=== PATIENT | male | born 1950 | race Caucasian/White ===

== ENCOUNTER → 2020-04-04 15:42 | Outpatient (BNVA) | payer MEDICARE, SELFPAY | PROVIDERS: Family Provider Nurse Practitioner; PCP Nurse Practitioner; Visit Provider Nurse Practitioner | DX: J43.9 Emphysema, unspecified (principal) | CPT/HCPCS: 80053 ==

== ENCOUNTER → 2020-06-25 10:04 | Outpatient (BNVA) | payer MEDICARE, SELFPAY | PROVIDERS: Family Provider Nurse Practitioner; PCP Nurse Practitioner; Visit Provider Nurse Practitioner | DX: E87.5 Hyperkalemia (principal) | CPT/HCPCS: 80053 ==

== ENCOUNTER → 2020-07-03 12:12 | Outpatient (BNVA) | payer MEDICARE, SELFPAY | PROVIDERS: Family Provider Nurse Practitioner; PCP Nurse Practitioner; Visit Provider Nurse Practitioner | DX: J43.9 Emphysema, unspecified (principal); Z20.828 Contact with and (suspected) exposure to other viral communicable diseases | CPT/HCPCS: 80053; 85025; 87635 ==

== ENCOUNTER → 2020-10-23 16:15 | Outpatient (BNVA) | payer MEDICARE, SELFPAY | PROVIDERS: Family Provider Nurse Practitioner; PCP Nurse Practitioner; Visit Provider Nurse Practitioner | DX: I10 Essential (primary) hypertension (principal) | CPT/HCPCS: 80048 ==

== ENCOUNTER 2021-04-06 14:19 | Inpatient (IN) | payer MEDICARE, SELFPAY ==
[2021-04-06] VITALS (10 sets, daily range): BP systolic 136–151; BP diastolic 73–86; PULSE 68–105; RESP 17–26; TEMP 36.8; O2SAT 62–99; BMI 23.0
--- NOTE | 2021-04-06 14:30 | ECG_ITS ---
[facility] Test Date: 2021-04-06 Pat Name: Brayden Adler Department: Room: Gender: Male [employer] Operator: : 1950 Requested By: Zena Mathur Order Number: [id number] Juanis MD: Joellen Edmonds M.D. Measurements Intervals [place] Rate: 73 P: 46 NM: 130 QRS: 60 QRSD: 102 T: 53 QT: 372 QTc: 412 Interpretive Statements SINUS RHYTHM WITH OCCASIONAL SUPRAVENTRICULAR PREMATURE COMPLEXES Compared to ECG 10/20/2017 23:01:41 Sinus tachycardia no longer present Electronically Signed On 04-07-2021 19:12:33 CDT by Joellen Edmonds M.D. [id number]
--- NOTE | 2021-04-06 14:33 | W.ED.GENADLT ---
HPI - General Adult General: Chief complaint: General Medical Stated complaint: TIA LIKE SYMPTOMS 13 HRS AGO Time Seen by Provider: 04/06/21 14:20 History of Present Illness: HPI narrative: This patient is a 71 year old male presenting with confusion and weakness, as well as a new tremor. He reports that the jerking started a week ago and he saw his doctor about it. he says that his doctor prescribed lorazepam for the jerking. He also takes dilaudid and morphine for lung inflammation. He has a history of COPD and says that he has never been admitted due to his breathing. He also woke up at about 1 am with weakness in both arms. He has not had this jerking problem before. He denies cough or fever. No COVID exposures. Associated symptoms: Reports dyspnea and malaise; Deny chest pain, headache(s), nausea, rash or vomiting Review of Systems Const: Reports: fatigue, malaise and daytime sleepiness; Denies: fever(s) or chills Eyes: Denies: change in vision ENMT: Denies: odynophagia Card: Denies: chest pain or swelling of feet/ankles Resp: Reports: dyspnea and wheezing; Denies: productive cough or non-productive cough GI: Denies: abdominal pain, nausea or vomiting : Denies: flank pain Musc: Denies: neck pain or back pain Skin/Breast: Denies: rash Neuro: Reports: involuntary movements; Denies: headache(s), numbness in extremities or weakness in extremities Kenroy/Lymph: Denies: easy bruising or easy bleeding PFS ED PFSH: Medical History (Updated 04/06/21 @ 18:51 by Matthew Beaulieu MD) BMI 24.0-24.9, adult CAD (coronary artery disease) COPD (chronic obstructive pulmonary disease) with emphysema Essential (primary) hypertension Surgical History (Updated 04/06/21 @ 18:43 by Matthew Beaulieu MD) History of carotid angioplasty History of vasectomy Family History Other Cancer FH: CVA (cerebrovascular accident) Hypertension Social History Smoking and tobacco status: former smoker Second hand smoke exposure: No Smoking risk assessment/counseling performed?: No Alcohol intake: never Desire information about alcohol rehabilitation?: No Counseling given: No Desire information about substance/drug rehabilitation?: No Counseling given: No Adopted: No Caregiver/support person: No Lives independently: Yes Household members: significant other Housing: House Marital status: / Number of children: 2 service: Yes branch: [employer] Current occupational status: retired History of recent travel: No Current gender identity: Male Physical Exam Const: COMMON NORMALS: no acute distress and alert EXAM LIMITATIONS: altered mental status GENERAL APPEARANCE: cooperative and other (confused, frequent jerking of his extremities) NUTRITIONAL APPEARANCE: thin ORIENTATION/CONSCIOUSNESS: Yes awake, Yes oriented to person and Yes confused HENMT: HEAD & SCALP: normal to inspection FACE & SINUS: normal facial exam Eye: GENERAL EYE: appearance normal, both eyes and all related structures Neck/C-Spine: COMMON NORMALS: supple, no meningeal signs and no JVD Chest: COMMONS NORMALS: normal inspection of the chest Resp: EFFORT & INSPECTION: Yes tachypneic, Yes labored and Yes uses accessory muscles AUSCULTATION: wheezes and diminished lung sounds Cardio: COMMON NORMALS: no JVD, regular rate, regular rhythm and No murmurs present (Cardio) RATE: regular rate RHYTHM: regular rhythm GI: COMMON NORMALS: Normal to inspection, nondistended, normoactive bowel sounds present, Soft to palpation and non-tender INSPECTION: Yes normal to inspection AUSCULTATION: Yes normoactive bowel sounds PALPATION: Yes Soft to palpation Back/Pelvis: COMMON NORMALS: thoracic and lumbar spine normal to inspection Extremity: COMMON NORMALS: normal to inspection Neuro: COMMON NORMALS: moves all extremities, no focal motor deficits and no sensory deficits noted SENSORIUM/ORIENTATION: Yes alert and Yes oriented to person MENINGEAL SIGNS: Yes no meningeal signs MOTOR EXAM: Tremors during motor activity present (myoclonic jerking) resting tremor Psych: COMMON NORMALS: mental status grossly normal, cooperative and normal affect Skin: COMMON NORMALS: no rashes or lesions noted and turgor normal GENERAL SKIN EXAM: no rashes or lesions noted and turgor normal Course ED course: Patient with confusion, myoclonus, very dimished air exchange on exam. ABG shows CO2 of 98 - consistent with the mental status changes. Treated for COPD, BiPap, improving clinically. Will admit to hospitalist. Repeat ABG pending. Reevaluation(s): Reevaluation #1: Slight improvement in ABG, but hospitalist prefers ICU admit. Repeat nebs ordered. Vital Signs: Vital signs: Vital Signs Temperature 98.3 F 04/06/21 14:24 Pulse Rate 100 04/06/21 18:52 Respiratory Rate 24 H 04/06/21 18:49 Blood Pressure 136/77 04/06/21 17:01 Pulse Oximetry 94 04/06/21 18:49 MDM - General Adult MDM Narrative: Medical decision making narrative: COPD exacerbation. Polypharmacy. Over sedation. Pneumonia Lab Data: Labs: Lab Results 04/06/21 04/06/21 04/06/21 Range/Units 14:31 15:07 15:07 WBC 6.7 (4.0-10.0) 10^3/ uL RBC 4.61 (4.1-5.3) 10^6/u L Hgb 12.7 (11.7-16.6) g/dL Hct 43.5 (42.0-52.0) % MCV 94.4 H (80-94) fl MCH 27.5 L (28.0-34.0) pg MCHC 29.2 L (30.0-36.0) g/dL RDW 12.3 (12.1-15.1) % Plt Count 161 (130-400) 10^3/c mm MPV 10.0 (7.4-10.4) fL Neut % (Auto) 74.0 % Lymph % (Auto) 16.6 % Stafford % (Auto) 8.4 % Eos % (Auto) 0.4 % Baso % (Auto) 0.3 % Neut # (Auto) 4.96 (1.8-7.7) 10^3/u L Lymph # (Auto) 1.1 (0.8-4.8) 10^3/u L Stafford # (Auto) 0.6 (0.2-0.9) 10^3/u L Eos # (Auto) 0.0 (0.0-0.8) 10^3/u L Baso # (Auto) 0.0 (0.0-0.1) 10^3/u L Nucleated RBC % (a uto) 0 % Nucleated RBCs # 0.0 /100WBC ESR (0-10) mm/hr Specimen Type Arterial Sample Site Radial, left ABG pH 7.29 L (7.35-7.45) ABG pCO2 98.2 H* (35-45) mmHg ABG pO2 99.0 (80.0-100.0) mmH g ABG HCO3 47.5 H (22-26) mmol/L ABG Base Excess 16.2 H (-2.0-2.0) mmol/ L Irgo Test Pos Hematocrit 40.7 L (42-52) % O2 Delivery Device Nc O2 Liters/Min 4.0 % FiO2 36.0 % Cake Tester ID Ed Sodium 140 (136-145) mmol/L Potassium 4.9 (3.5-5.1) mmol/L Chloride 96 L (98-107) mmol/L Carbon Dioxide 42 H* (22-29) mmol/L Anion Gap 6.9 (5-19) BUN 9 (8-23) mg/dL Creatinine 0.6 L (0.7-1.2) mg/dL GFR Calculation Not Reportable Glucose 95 (65-115) mg/dL Calculated Osmolal ity 288 (285-295) mOsm/k g Lactic Acid (0.5-2.2) mmol/L Calcium 8.8 (8.5-10.5) mg/dL Magnesium 1.7 (1.7-2.3) mg/dL Total Bilirubin 1.0 (0.15-1.2) mg/dL AST 11 (0-40) U/L ALT 9 (0-41) U/L Alkaline Phosphata se 80 (40-130) IU/L Ammonia (16-60) umol/L Creatine Kinase 45 (39-308) U/L Troponin T Baselin e (0-15) ng/L Troponin T 120 Min [place] (0-15) ng/L Delta Troponin T (0-10) ABS# C-Reactive Protein (0.0-4.9) mg/L NT-Pro-B Natriuret Pep (0-125) pg/mL Total Protein 6.4 L (6.6-8.7) g/dL Albumin 3.6 (3.5-5.2) g/dL Globulin 2.8 (1.3-4.6) g/dL Procalcitonin (0-0.5) ng/mL Urine Color (Yellow) Urine Appearance (CLEAR) Urine pH (5-7) Ur Specific Gravit y (1.005-1.030) Urine Protein (Negative) Urine Glucose (UA) (Normal) Urine Ketones (Negative) Urine Blood (Negative) Urine Nitrate (Negative) Urine Bilirubin (Negative) Urine Urobilinogen (Negative) mg/dL Ur Leukocyte Jerica ase (Negative) Urine RBC (0-2) /hpf Urine WBC (0-5) /hpf Ur Squamous Epith Cells (0-5) /hpf Amorphous Sediment /hpf Urine Bacteria (NONE) /hpf Urine Mucus /hpf Ethyl Alcohol < 10 (0-10) mg/dL 04/06/21 04/06/21 04/06/21 Range/Units 15:07 15:07 15:07 WBC (4.0-10.0) 10^3/ uL RBC (4.1-5.3) 10^6/u L Hgb (11.7-16.6) g/dL Hct (42.0-52.0) % MCV (80-94) fl MCH (28.0-34.0) pg MCHC (30.0-36.0) g/dL RDW (12.1-15.1) % Plt Count (130-400) 10^3/c mm MPV (7.4-10.4) fL Neut % (Auto) % Lymph % (Auto) % Stafford % (Auto) % Eos % (Auto) % Baso % (Auto) % Neut # (Auto) (1.8-7.7) 10^3/u L Lymph # (Auto) (0.8-4.8) 10^3/u L Stafford # (Auto) (0.2-0.9) 10^3/u L Eos # (Auto) (0.0-0.8) 10^3/u L Baso # (Auto) (0.0-0.1) 10^3/u L Nucleated RBC % (a uto) % Nucleated RBCs # /100WBC ESR (0-10) mm/hr Specimen Type Sample Site ABG pH (7.35-7.45) ABG pCO2 (35-45) mmHg ABG pO2 (80.0-100.0) mmH g ABG HCO3 (22-26) mmol/L ABG Base Excess (-2.0-2.0) mmol/ L Rigo Test Hematocrit (42-52) % O2 Delivery Device O2 Liters/Min % FiO2 % Cake Tester ID Sodium (136-145) mmol/L Potassium (3.5-5.1) mmol/L Chloride (98-107) mmol/L Carbon Dioxide (22-29) mmol/L Anion Gap (5-19) BUN (8-23) mg/dL Creatinine (0.7-1.2) mg/dL GFR Calculation Glucose (65-115) mg/dL Calculated Osmolal ity (285-295) mOsm/k g Lactic Acid 0.6 (0.5-2.2) mmol/L Calcium (8.5-10.5) mg/dL Magnesium (1.7-2.3) mg/dL Total Bilirubin (0.15-1.2) mg/dL AST (0-40) U/L ALT (0-41) U/L Alkaline Phosphata se (40-130) IU/L Ammonia 79 H (16-60) umol/L Creatine Kinase (39-308) U/L Troponin T Baselin e 17 H (0-15) ng/L Troponin T 120 Min [place] (0-15) ng/L Delta Troponin T (0-10) ABS# C-Reactive Protein (0.0-4.9) mg/L NT-Pro-B Natriuret Pep (0-125) pg/mL Total Protein (6.6-8.7) g/dL Albumin (3.5-5.2) g/dL Globulin (1.3-4.6) g/dL Procalcitonin (0-0.5) ng/mL Urine Color (Yellow) Urine Appearance (CLEAR) Urine pH (5-7) Ur Specific Gravit y (1.005-1.030) Urine Protein (Negative) Urine Glucose (UA) (Normal) Urine Ketones (Negative) Urine Blood (Negative) Urine Nitrate (Negative) Urine Bilirubin (Negative) Urine Urobilinogen (Negative) mg/dL Ur Leukocyte Jerica ase (Negative) Urine RBC (0-2) /hpf Urine WBC (0-5) /hpf Ur Squamous Epith Cells (0-5) /hpf Amorphous Sediment /hpf Urine Bacteria (NONE) /hpf Urine Mucus /hpf Ethyl Alcohol (0-10) mg/dL 04/06/21 04/06/21 04/06/21 Range/Units 15:07 15:07 17:09 WBC (4.0-10.0) 10^3/ uL RBC (4.1-5.3) 10^6/u L Hgb (11.7-16.6) g/dL Hct (42.0-52.0) % MCV (80-94) fl MCH (28.0-34.0) pg MCHC (30.0-36.0) g/dL RDW (12.1-15.1) % Plt Count (130-400) 10^3/c mm MPV (7.4-10.4) fL Neut % (Auto) % Lymph % (Auto) % Stafford % (Auto) % Eos % (Auto) % Baso % (Auto) % Neut # (Auto) (1.8-7.7) 10^3/u L Lymph # (Auto) (0.8-4.8) 10^3/u L Stafford # (Auto) (0.2-0.9) 10^3/u L Eos # (Auto) (0.0-0.8) 10^3/u L Baso # (Auto) (0.0-0.1) 10^3/u L Nucleated RBC % (a uto) % Nucleated RBCs # /100WBC ESR 11 H (0-10) mm/hr Specimen Type Sample Site ABG pH (7.35-7.45) ABG pCO2 (35-45) mmHg ABG pO2 (80.0-100.0) mmH g ABG HCO3 (22-26) mmol/L ABG Base Excess (-2.0-2.0) mmol/ L Rigo Test Hematocrit (42-52) % O2 Delivery Device O2 Liters/Min % FiO2 % Cake Tester ID Sodium (136-145) mmol/L Potassium (3.5-5.1) mmol/L Chloride (98-107) mmol/L Carbon Dioxide (22-29) mmol/L Anion Gap (5-19) BUN (8-23) mg/dL Creatinine (0.7-1.2) mg/dL GFR Calculation Glucose (65-115) mg/dL Calculated Osmolal ity (285-295) mOsm/k g Lactic Acid (0.5-2.2) mmol/L Calcium (8.5-10.5) mg/dL Magnesium (1.7-2.3) mg/dL Total Bilirubin (0.15-1.2) mg/dL AST (0-40) U/L ALT (0-41) U/L Alkaline Phosphata se (40-130) IU/L Ammonia (16-60) umol/L Creatine Kinase (39-308) U/L Troponin T Baselin e (0-15) ng/L Troponin T 120 Min [place] (0-15) ng/L Delta Troponin T (0-10) ABS# C-Reactive Protein 2.6 (0.0-4.9) mg/L NT-Pro-B Natriuret Pep 97 (0-125) pg/mL Total Protein (6.6-8.7) g/dL Albumin (3.5-5.2) g/dL Globulin (1.3-4.6) g/dL Procalcitonin 0.07 (0-0.5) ng/mL Urine Color Yellow (Yellow) Urine Appearance Cloudy (CLEAR) Urine pH 7 (5-7) Ur Specific Gravit y 1.010 (1.005-1.030) Urine Protein Neg (Negative) Urine Glucose (UA) Norm (Normal) Urine Ketones 1+ H (Negative) Urine Blood Neg (Negative) Urine Nitrate Negative (Negative) Urine Bilirubin Neg (Negative) Urine Urobilinogen Norm (Negative) mg/dL Ur Leukocyte Jerica ase Negative (Negative) Urine RBC None (0-2) /hpf Urine WBC Rare (0-5) /hpf Ur Squamous Epith Cells Rare (0-5) /hpf Amorphous Sediment 4+ /hpf Urine Bacteria Trace (NONE) /hpf Urine Mucus Trace /hpf Ethyl Alcohol (0-10) mg/dL 04/06/21 04/06/21 Range/Units 17:22 17:33 WBC (4.0-10.0) 10^3/ uL RBC (4.1-5.3) 10^6/u L Hgb (11.7-16.6) g/dL Hct (42.0-52.0) % MCV (80-94) fl MCH (28.0-34.0) pg MCHC (30.0-36.0) g/dL RDW (12.1-15.1) % Plt Count (130-400) 10^3/c mm MPV (7.4-10.4) fL Neut % (Auto) % Lymph % (Auto) % Stafford % (Auto) % Eos % (Auto) % Baso % (Auto) % Neut # (Auto) (1.8-7.7) 10^3/u L Lymph # (Auto) (0.8-4.8) 10^3/u L Stafford # (Auto) (0.2-0.9) 10^3/u L Eos # (Auto) (0.0-0.8) 10^3/u L Baso # (Auto) (0.0-0.1) 10^3/u L Nucleated RBC % (a uto) % Nucleated RBCs # /100WBC ESR (0-10) mm/hr Specimen Type Arterial Sample Site Brachial, right ABG pH 7.36 (7.35-7.45) ABG pCO2 81.0 H* (35-45) mmHg ABG pO2 66.3 L (80.0-100.0) mmH g ABG HCO3 46.1 H (22-26) mmol/L ABG Base Excess 16.5 H (-2.0-2.0) mmol/ L Rigo Test N/a Hematocrit 41.5 L (42-52) % O2 Delivery Device Bipap O2 Liters/Min % FiO2 40.0 % Cake Tester ID Ed Sodium (136-145) mmol/L Potassium (3.5-5.1) mmol/L Chloride (98-107) mmol/L Carbon Dioxide (22-29) mmol/L Anion Gap (5-19) BUN (8-23) mg/dL Creatinine (0.7-1.2) mg/dL GFR Calculation Glucose (65-115) mg/dL Calculated Osmolal ity (285-295) mOsm/k g Lactic Acid (0.5-2.2) mmol/L Calcium (8.5-10.5) mg/dL Magnesium (1.7-2.3) mg/dL Total Bilirubin (0.15-1.2) mg/dL AST (0-40) U/L ALT (0-41) U/L Alkaline Phosphata se (40-130) IU/L Ammonia (16-60) umol/L Creatine Kinase (39-308) U/L Troponin T Baselin e (0-15) ng/L Troponin T 120 Min [place] 16.41 H (0-15) ng/L Delta Troponin T -0.59 L (0-10) ABS# C-Reactive Protein (0.0-4.9) mg/L NT-Pro-B Natriuret Pep (0-125) pg/mL Total Protein (6.6-8.7) g/dL Albumin (3.5-5.2) g/dL Globulin (1.3-4.6) g/dL Procalcitonin (0-0.5) ng/mL Urine Color (Yellow) Urine Appearance (CLEAR) Urine pH (5-7) Ur Specific Gravit y (1.005-1.030) Urine Protein (Negative) Urine Glucose (UA) (Normal) Urine Ketones (Negative) Urine Blood (Negative) Urine Nitrate (Negative) Urine Bilirubin (Negative) Urine Urobilinogen (Negative) mg/dL Ur Leukocyte Jerica ase (Negative) Urine RBC (0-2) /hpf Urine WBC (0-5) /hpf Ur Squamous Epith Cells (0-5) /hpf Amorphous Sediment /hpf Urine Bacteria (NONE) /hpf Urine Mucus /hpf Ethyl Alcohol (0-10) mg/dL Critical Care Time Critical Care Time: Critical Care Time: Yes Total Critical Care Time: 35 Attestation: This case had a high probability of a clinically significant, sudden, or life threatening deterioration of this patient's condition which required my full and direct attention, intervention and personal management. This included interpretation of imaging, ABG, labs, clinical re-evaluation, consultation, review or prior records. Discharge Plan Discharge Patient Disposition: Admitted As Inpatient Admit Provider: Matthew Beaulieu Clinical Impression: COPD (chronic obstructive pulmonary disease) with emphysema, Acute and chronic respiratory failure with hypercapnia, Acute alteration in mental status Condition: Serious Coding Level of Care Code ED Manager Of Project Management for Chg Fwd Exam Comprehensive
[2021-04-06 14:41] LABS: ABG PH Result 7.29 (7.35-7.45); Arterial Blood Gas Hematocrit 40.7 % (42-52); Base Excess ABG 16.2 mmol/L (-2.0-2.0); Blood Gas Allen Test Pos; Blood Gas Sample Type Arterial; HCO3 ABG 47.5 mmol/L (22-26)
[2021-04-06 14:42] LABS: ABG PCO2 98.2 mmHg (35-45); Blood Gas Operator Identificat ED; Blood Gas Sample Site Radial, left; Oxygen Device NC
[2021-04-06 15:18] LABS: Basophils % 0.3 %; Eosinophils % 0.4 %; Hematocrit 43.5 % (42.0-52.0); Hemoglobin 12.7 g/dL (11.7-16.6); Lymphocytes # 1.1 10^3/uL (0.8-4.8); Lymphocytes % 16.6 %; Mean Corpuscular HGB Conc 29.2 g/dL (30.0-36.0); Mean Corpuscular Hemoglobin 27.5 pg (28.0-34.0); Mean Corpuscular Volume 94.4 fl (80-94); Monocytes # 0.6 10^3/uL (0.2-0.9); Monocytes % 8.4 %; Neutrophils # 4.96 10^3/uL (1.8-7.7); Nucleated Red Blood Cells % 0 %; Platelet Count 161 10^3/cmm (130-400); Red Blood Count 4.61 10^6/uL (4.1-5.3); Red Cell Distribution Width 12.3 % (12.1-15.1); White Blood Count 6.7 10^3/uL (4.0-10.0)
--- NOTE | 2021-04-06 15:20 | XRR_ITS ---
PROCEDURE INFORMATION: Exam: XR Chest Exam date and time: 04/06/2021 3:20 PM Age: 71 years old Clinical indication: Shortness of breath; Additional info: SOB, AMS TECHNIQUE: Imaging protocol: XR of the chest. Views: 1 view. COMPARISON: CR Chest 1 [place] [id number] 10/20/2017 5:34 PM FINDINGS: Lungs: Stable mild hyperinflation of the lungs. Multiple areas of scarring in both lungs are stable. Patchy alveolar airspace disease in the right mid lung, suspicious for atelectasis and/or mild pneumonia. Pleural spaces: Stable small chronic bilateral pleural effusions versus pleural thickening. No pneumothorax. Heart/Mediastinum: Stable mild enlargement of the cardiac silhouette. Enlargement of the central pulmonary arteries. Findings may suggest pulmonary hypertension. Vasculature: Stable vascular calcifications in the aorta. Bones/joints: Unremarkable for age. XR/XR chest 1V portable [id number] IMPRESSION: 1. Patchy alveolar airspace disease in the right mid lung, suspicious for atelectasis and/or mild pneumonia. Recommend followup chest x-ray to ensure resolution. 2. Stable small chronic bilateral pleural effusions versus pleural thickening. 3. Incidental/nonacute findings are listed in the report.
[2021-04-06] MEDS: magnesium sulfate premix 2 GM/50 ML PIGGYBACK IV (15:33)
[2021-04-06 15:44] LABS: Ammonia 79 umol/L (16-60)
[2021-04-06] MEDS: ipratropium-albuterol 3 mL Neb INHALATION ×2 (15:49→18:45)
[2021-04-06 15:50] LABS: Lactic Sepsis W/Reflex 0.6 mmol/L (0.5-2.2)
[2021-04-06 15:51] LABS: Alanine Aminotransferase 9 U/L (0-41); Albumin Level 3.6 g/dL (3.5-5.2); Alkaline Phosphatase 80 IU/L (40-130); Anion Gap 6.9 (5-19); Aspartate Amino Transferase 11 U/L (0-40); Blood Urea Nitrogen 9 mg/dL (8-23); Calcium 8.8 mg/dL (8.5-10.5); Chloride 96 mmol/L (98-107); Creatine Phosphokinase 45 U/L (39-308); Creatinine Clr Calc Pharmacy 91.3802; Globulin 2.8 g/dL (1.3-4.6); Glucose 95 mg/dL (65-115); Magnesium 1.7 mg/dL (1.7-2.3); Osmolality Calculated 288 mOsm/kg (285-295); Potassium 4.9 mmol/L (3.5-5.1); Sodium 140 mmol/L (136-145); Total Protein 6.4 g/dL (6.6-8.7)
[2021-04-06 16:07] LABS: Alcohol Level < 10 mg/dL (0-10); Carbon Dioxide 42 mmol/L (22-29)
[2021-04-06 16:09] LABS: Troponin(5th) Baseline 17 ng/L (0-15)
[2021-04-06 17:42] LABS: ABG PH Result 7.36 (7.35-7.45); Arterial Blood Gas Hematocrit 41.5 % (42-52); Base Excess ABG 16.5 mmol/L (-2.0-2.0); Blood Gas Sample Type Arterial; HCO3 ABG 46.1 mmol/L (22-26); PO2 ABG 66.3 mmHg (80.0-100.0)
[2021-04-06 17:44] LABS: Blood Gas Operator Identificat ED; Blood Gas Sample Site Brachial, right; Oxygen Device BIPAP
[2021-04-06 17:46] LABS: Add Urine Microscopic? YES; Bilirubin Urine Neg (Negative); Blood Urine Neg (Negative); Glucose Urine UA Norm (Normal); Ketones Urine 1+ (Negative); Leukocyte Esterase Urine Negative (Negative); Nitrate Urine Negative (Negative); Protein Urine Neg (Negative); Urine Appearance Cloudy (CLEAR); Urine Color Yellow (Yellow); Urobilinogen Urine Norm (Negative); pH Urine 7 (5-7)
[2021-04-06 17:54] LABS: NT Pro B Type Natriuretic Pept 97 pg/mL (0-125); Procalcitonin 0.07 ng/mL (0-0.5)
[2021-04-06 17:57] LABS: Add Urine Culture? No; Amorphous Sediment Urine 4+ /hpf; Bacteria Urine TRACE /hpf; Mucus Urine TRACE /hpf; Squamous Epithelial Cell Urine RARE /hpf (0-5); WBC Urine RARE /hpf (0-5)
[2021-04-06 18:03] LABS: Troponin 5 2HR 16.41 ng/L (0-15)
[2021-04-06 18:04] LABS: C Reactive Protein 2.6 mg/L (0.0-4.9)
[2021-04-06 18:08] LABS: Troponin 5 2HR Delta -0.59 ABS# (0-10)
[2021-04-06 18:21] LABS: Erythrocyte Sedimentation Rate 11 mm/hr (0-10)
--- NOTE | 2021-04-06 18:36 | CTR_ITS ---
PROCEDURE INFORMATION: Exam: CTA Chest With Contrast Exam date and time: 04/06/2021 6:36 PM Age: 71 years old Clinical indication: Shortness of breath; Prior surgery; Surgery type: Lung, back, carotid; Additional info: Resp failure TECHNIQUE: Imaging protocol: Computed tomographic angiography of the chest with contrast. 3D rendering (Not supervised by radiologist): MIP and/or 3D reconstructed images were created by the technologist. Radiation optimization: All CT scans at this facility use at least one of these dose optimization techniques: automated exposure control; mA and/or kV adjustment per patient size (includes targeted exams where dose is matched to clinical indication); or iterative reconstruction. Contrast material: OMNI 350; Contrast volume: 70 ml; Contrast route: INTRAVENOUS (IV); COMPARISON: CTA Chest-Pulmonary Emb [id number] 10/20/2017 8:45 PM RADIATION DOSE METRICS: Total DLP (mGy-cm): 591.31 FINDINGS: Pulmonary arteries: No filling defects in the pulmonary arteries to suggest pulmonary embolism. Aorta: Moderate atherosclerotic changes in the visualized arteries. No evidence for aortic aneurysm or aortic dissection. Great vessels off aortic arch: Arterial stent in the proximal left subclavian artery. Findings are stable. Lungs: Extensive paraseptal and [id number] centrilobular emphysematous changes in the lungs with bulla formation. Findings are stable. No focal consolidation. No pulmonary edema. No pulmonary parenchymal nodules or masses. Pleural spaces: No pleural effusion. No pneumothorax. Pleural calcifications in the right hemithorax. Findings are stable. Heart: Stable mild enlargement of the heart. Mild atherosclerotic calcification in the coronary arteries. Stable calcification of the aortic valve and mitral valve annulus. Mediastinal space: The esophagus is unremarkable. No mediastinal hematoma. No pneumomediastinum. Lymph nodes: No lymphadenopathy. Liver: Multiple calcified granulomas in the liver. Gallbladder and bile ducts: The gallbladder is unremarkable. No dilatation of the visualized bile ducts. Pancreas: Mild atrophy of the visualized pancreatic parenchyma. Spleen: The spleen is unremarkable. Adrenal glands: The right and left adrenal glands are unremarkable. Kidneys and ureters: Mildly complex cyst with wall calcification in the right kidney is partially visualized, this is stable compared with the previous study. The visualized left kidney is unremarkable. Bones/joints: Multilevel degenerative changes of varying severity in the visualized spine. Soft tissues: No acute abnormality in the extrathoracic soft tissues. CT/CT angio chest PE protcl [id number] IMPRESSION: 1. No evidence for pulmonary embolism. 2. Extensive paraseptal and [id number] centrilobular emphysematous changes in the lungs with bulla formation. Findings are stable. 3. Mildly complex cyst with wall calcification in the right kidney is partially visualized, this is stable compared with the previous study. 4. Incidental/nonacute findings are listed in the report. Radiation Dose CTDIVOL = (mGy): DLP = 591.31 (mGy-cm)
--- NOTE | 2021-04-06 18:40 | PM.HP ---
Providers/Chief Complaint Admitting Physician: Matthew Beaulieu MD Primary Care Provider: Gian Stacy, TUFTING MACHINE OPERATOR SINGLE NEEDLE-C Chief Complaint: TIA LIKE SYMPTOMS 13 HRS AGO History of Present Illness Brayden Adler is a 71 year old male with a past medical history of CAD status post stenting x1, history of bullous emphysema, COPD, history of right carotid endarterectomy, history of left carotid artery stenosis, hypertension, hyperlipidemia, who presents to [facility] due to complaints of chest pain, shortness of breath and confusion. Currently patient is alert to person, to place, not to time, he does mixed up a lot of his story, at times he tells me that he just had carotid surgery in [place], at other times he tells me that he lives in [facility], however after multiple redirections, I am able to get a straight answer from him. He tells me that he quit smoking more than 20 years ago, but has severe emphysema, he was doing fine yesterday, but just was feeling tired, nothing out of the ordinary. However overnight into this morning, he was developing severe substernal chest pain with shortness of breath, chest pain was in the anterior chest, nonradiating, no nausea, no vomiting. With the chest pain he was developing severe shortness of breath, no coughing, no hemoptysis, no recent surgery, no calf pain, swelling. Denies exposure to secondhand smoker, he is on hydromorphone, and morphine, he which he tells me has been taking forever. Denies taking more than the medication as prescribed, denies any illicit drug use. Review of Systems Const: Denies: fever(s), chills, fatigue or malaise Eyes: Denies: change in vision or blurry vision ENMT: Denies: nasal congestion Card: Reports: chest pain and dyspnea on exertion; Denies: irregular heart rhythm, edema, lightheadedness, syncope or pre-syncope Resp: Reports: dyspnea and non-productive cough; Denies: productive cough, wheezing or stridor GI: Denies: abdominal pain, nausea, vomiting, hematemesis, diarrhea, constipation, hematochezia or melena : Denies: flank pain, difficulty urinating, dysuria or urinary frequency Musc: Denies: neck pain or back pain Skin/Breast: Denies: rash Neuro: Denies: headache(s), dizziness or vertigo Psych: Denies: anxiety or depression Endo: Denies: polyuria or polydipsia Medications/Allergies Home Medications Medication Instructions Recorded Confirmed Last Taken Type albuterol sulfate 90 mcg/actuation 2 inh INHALATION QID PRN #18 gm 10/14/19 04/06/21 Unknown Rx aerosol inhaler budesonide 0.5 mg/2 mL suspension 0.5 mg INHALATION BID #120 ml 04/04/20 04/06/21 04/06/21 Rx for nebulization cilostazol 50 mg tablet 50 mg PO BID tab 04/04/20 04/06/21 04/06/21 History formoterol fumarate 20 mcg/2 mL 2 ml INHALATION Q12H #120 ml 04/04/20 04/06/21 04/06/21 Rx solution for nebulization clopidogrel 75 mg tablet 75 mg PO DAILY tab 10/23/20 04/06/21 04/06/21 History hydromorphone 2 mg tablet 2 mg PO TID tab 10/23/20 04/06/21 04/06/21 History losartan 50 mg tablet 50 mg PO DAILY 10/23/20 04/06/21 04/06/21 History morphine 15 mg tablet,extended 15 mg PO Q12H tab 10/23/20 04/06/21 04/06/21 History release tamsulosin 0.4 mg capsule 0.4 mg PO DAILY cap 10/23/20 04/06/21 04/05/21 History albuterol sulfate 2.5 mg INHALATION Q4H PRN #300 ml 11/12/20 04/06/21 Unknown Rx Lasix 20 - 40 mg PO DAILY PRN 04/06/21 04/06/21 Unknown History Allergies Allergy/AdvReac Type Severity Reaction Status Date / Time erythromycin base Allergy Unknown Unknown Unverified 10/14/19 14:20 PFSH Acute PFSH: Medical History (Updated 04/06/21 @ 18:51 by Matthew Beaulieu MD) BMI 24.0-24.9, adult CAD (coronary artery disease) COPD (chronic obstructive pulmonary disease) with emphysema Essential (primary) hypertension Surgical History (Updated 04/06/21 @ 18:43 by Matthew Beaulieu MD) History of carotid angioplasty History of vasectomy Family History Other Cancer FH: CVA (cerebrovascular accident) Hypertension Social History Smoking and tobacco status: former smoker Second hand smoke exposure: No Smoking risk assessment/counseling performed?: No Alcohol intake: never Desire information about alcohol rehabilitation?: No Counseling given: No Desire information about substance/drug rehabilitation?: No Counseling given: No Adopted: No Caregiver/support person: No Lives independently: Yes Household members: significant other Housing: House Marital status: / Number of children: 2 service: Yes branch: [employer] Current occupational status: retired History of recent travel: No Current gender identity: Male Vitals/I&O/Wt Last Vital Signs Temp 98.3 F 04/06/21 14:24 Pulse 84 04/06/21 17:01 Resp 19 H 04/06/21 17:01 BP 136/77 04/06/21 17:01 Pulse Ox 91 04/06/21 17:01 Weight last 48 hrs Weight 77.111 kg Physical Exam Const: COMMON NORMALS: no acute distress EXAM LIMITATIONS: altered mental status GENERAL APPEARANCE: cooperative ORIENTATION/CONSCIOUSNESS: Yes awake, Yes oriented to person, Yes oriented to place and Yes confused; not oriented to time HENMT: COMMON NORMALS: normocephalic HEAD & SCALP: normocephalic Eye: COMMON NORMALS: Equal, round and reactive pupils present GENERAL EYE: appearance normal, both eyes and all related structures PUPIL: Yes Equal, round and reactive pupils present Neck/C-Spine: COMMON NORMALS: full ROM, no lymphadenopathy and no JVD THYROID: Thyroid normal Lymph: LYMPHATIC: no lymphadenopathy noted Resp: COMMON NORMALS: normal respiratory effort, No retractions and No use of accessory muscles EFFORT & INSPECTION: Yes tachypneic, Yes respiratory distress (slight resp distress) and Yes retractions intercostal and supraclavicular AUSCULTATION: diminished lung sounds diffuse Cardio: COMMON NORMALS: regular rate, regular rhythm, S1 normal heart sound present, S2 normal heart sound present and No murmurs present (Cardio) GI: COMMON NORMALS: Normal to inspection, nondistended, normoactive bowel sounds present, Soft to palpation and non-tender PALPATION: Yes Soft to palpation and Yes No hepatosplenomegaly present Extremity: COMMON NORMALS: no pedal edema Neuro: COMMON NORMALS: patient oriented x3, CN's II-XII intact bilaterally, moves all extremities and no focal motor deficits Psych: COMMON NORMALS: mental status grossly normal, Normal thought process present and cooperative THOUGHT PROCESS: Normal thought process present Data : 04/06/21 15:07 04/06/21 15:07 Micro: Microbiology 04/06/21 17:22 Blood Culture - Preliminary Blood SPECIMEN COLLECTED 04/06/21 15:07 Blood Culture - Preliminary Blood SPECIMEN COLLECTED A&P Assessment and plan (1) Acute and chronic respiratory failure with hypercapnia: -Patient's PCO2 has responded well to BiPAP therapy, down to 80, but still has episodes of significant confusion, still having intercostal retractions, tachypnea, mild respiratory distress -Etiology is unclear, I was told it was secondary to his narcotic pain medications, but he tells me he has been taking these medications for over 20 years for his chronic pain Plan: -Admit to ICU -Continue BiPAP -Repeat ABG in a.m., monitor mentation closely, monitor respiratory status closely -Start broad-spectrum antibiotic therapy to Rocephin azithromycin -Continue DuoNeb treatments every 4 hours -Continue Solu-Medrol - follow blood cultures, sputum cultures -Serial troponins, serial EKGs, aspirin, statin, Plavix will order cardiac echo, return for chest pain -We will order CT angiogram of the chest -Hold off on diuretics as patient does not look fluid overloaded -Also has an elevated ammonia level, 2-3 beers a day, does report drinking no significant LFT abnormalities, ciwa -UA pending -Full code -Lovenox for DVT prophylaxis Alcohol abuse, CIWA Chest pain, with a history of CAD, as above Hypertension, continue losartan Chronic pain, hold morphine, hold Dilaudid, if PCO2 improves will reinstitute History of carotid endarterectomy on the right History of carotid artery stenosis on the left, currently being monitored by outpatient physician Status: Acute (2) Acute alteration in mental status: Status: Acute (3) Pneumonia: Status: Acute (4) Essential (primary) hypertension: Status: Chronic (5) COPD (chronic obstructive pulmonary disease) with emphysema: Status: Chronic Attestations Medical Necessity Statement*: Patient requires hospitalization for acute respiratory failure with hypercapnia secondary to COPD, bullous emphysema, possible underlying pneumonia, isolation, inpatient, greater than 2 midnights Coding Level of Care Code Acute Carpet Floor Layer Apprentice for g Fwd Diagnoses Acute and chronic respiratory failure with hypercapnia J96.22 Acute alteration in mental status R41.82 Pneumonia J18.9 Essential (primary) hypertension I10 COPD (chronic obstructive pulmonary disease) with emphysema J43.9
[2021-04-06] MEDS: cefTRIAXone 1,000 MG in sodium chloride 0.9% (plus) 50 ML 100 MG IV (19:23)
[2021-04-06] MEDS: enoxaparin 40 mg/0.4 mL Syringe SUBCUT (19:33)
[2021-04-06] MEDS: aspirin 81 mg EC Tablet PO (19:34)
[2021-04-06] MEDS: pantoprazole 40 mg SDV IVP (19:34)
[2021-04-06] MEDS: lactulose oral liq 20 gm/30 mL UDC PO (19:34)
[2021-04-06] MEDS: iohexol 350 mg/mL 100 mL Btl IV (20:29)
[2021-04-06] MEDS: azithromycin 500 MG in sodium chloride 0.9% 250 ML 250 MG IV (20:42)
[2021-04-06] MEDS: atorvastatin 40 mg Tablet PO (20:43)
[2021-04-06 22:39] LABS: Troponin 5 6HR 13.01 ng/L (0-15)
[2021-04-06 22:48] LABS: Troponin 5 6HR Delta -3.99 ng/L (0-12)
[2021-04-07] VITALS (157 sets, daily range): BP systolic 123–187; BP diastolic 72–96; PULSE 64–128; RESP 4–36; TEMP 36.6; O2SAT 76–100; BMI 24.1
--- NOTE | 2021-04-07 00:30 | PC.NURSE ---
Transfer Note Patient transferred to ICU room 2 from ER via bed, wearing 15L O2 on nonrebreather mask. Handoff received from CATHY Hickey. Patient oriented to environment and equipment. Covering service notified. Orders reviewed and will continue to monitor. Family and/or retail service representative notified. All patient belongings are at bedside and patient denies pain.
[2021-04-07] MEDS: ipratropium-albuterol 3 mL Neb INHALATION ×5 (03:24→21:05)
--- NOTE | 2021-04-07 05:05 | PC.NURSE ---
Shift Note Frequent safety and comfort rounds continue. Orders and/or nursing care completed as indicated. Patient monitored for response to intervention and treatment(s). Education provided includes hospital admission. Patient verbalizes understanding but needs reinforcement. Patient is currently on the BIPAP at 50% FiO2. Right hand IV is saline locked at this time. Patient is alert and oriented x3 but confused about situation. No wounds or skin issues noted at this time. Will continue to monitor.
[2021-04-07 05:14] LABS: ABG PH Result 7.37 (7.35-7.45); Arterial Blood Gas Hematocrit 40.2 % (42-52); Blood Gas Allen Test Pos; Blood Gas Sample Type Arterial; HCO3 ABG 45.2 mmol/L (22-26)
[2021-04-07 05:17] LABS: ABG PCO2 78.5 mmHg (35-45); Blood Gas Operator Identificat JB; Blood Gas Sample Site Radial, right; Oxygen Device BIPAP
[2021-04-07] MEDS: budesonide 0.5 mg/2 mL Neb INHALATION ×2 (07:44→21:06)
[2021-04-07 07:50] LABS: Basophils % 0.2 %; Hematocrit 41.2 % (42.0-52.0); Hemoglobin 12.4 g/dL (11.7-16.6); Lymphocytes # 0.8 10^3/uL (0.8-4.8); Lymphocytes % 18.7 %; Mean Corpuscular HGB Conc 30.1 g/dL (30.0-36.0); Mean Corpuscular Hemoglobin 27.9 pg (28.0-34.0); Mean Corpuscular Volume 92.6 fl (80-94); Mean Platelet Volume 10.4 fL (7.4-10.4); Monocytes # 0.5 10^3/uL (0.2-0.9); Monocytes % 10.6 %; Neutrophils # 3.03 10^3/uL (1.8-7.7); Neutrophils % 69.8 %; Nucleated Red Blood Cells % 0 %; Platelet Count 167 10^3/cmm (130-400); Red Blood Count 4.45 10^6/uL (4.1-5.3); Red Cell Distribution Width 12.3 % (12.1-15.1); White Blood Count 4.3 10^3/uL (4.0-10.0)
[2021-04-07 07:58] LABS: Ammonia 46 umol/L (16-60)
[2021-04-07 08:20] LABS: Alanine Aminotransferase 11 U/L (0-41); Albumin Level 3.7 g/dL (3.5-5.2); Alkaline Phosphatase 73 IU/L (40-130); Anion Gap 4.9 (5-19); Aspartate Amino Transferase 14 U/L (0-40); Blood Urea Nitrogen 17 mg/dL (8-23); Chloride 97 mmol/L (98-107); Globulin 2.8 g/dL (1.3-4.6); Glucose 113 mg/dL (65-115); Magnesium 2.2 mg/dL (1.7-2.3); Osmolality Calculated 296 mOsm/kg (285-295); Potassium 4.9 mmol/L (3.5-5.1); Sodium 142 mmol/L (136-145); Thyroid Stimulating Hormone 1.43 uIU/mL (0.27-4.20); Total Bilirubin 1.2 mg/dL (0.15-1.2); Total Protein 6.5 g/dL (6.6-8.7)
[2021-04-07 08:29] LABS: Carbon Dioxide 45 mmol/L (22-29); Creatinine Clr Calc Pharmacy 93.1203
[2021-04-07] MEDS: multivitamin therapeutic Tablet 1 TAB PO (08:33)
[2021-04-07] MEDS: losartan 50 mg Tablet PO (08:33)
[2021-04-07] MEDS: aspirin 81 mg EC Tablet PO (08:33)
[2021-04-07] MEDS: tamsulosin 0.4 mg Capsule PO (08:35)
[2021-04-07] MEDS: cilostazol 100 mg Tablet 50 MG PO ×2 (08:35→17:35)
[2021-04-07] MEDS: folic acid 1 mg Tablet PO (08:35)
[2021-04-07] MEDS: thiamine 100 mg Tablet PO (08:35)
[2021-04-07] MEDS: clopidogrel 75 mg Tablet PO (08:35)
--- NOTE | 2021-04-07 08:42 | PC.CHAP ---
Pastoral Care Encounter/Spiritual Assessment Type of Contact [] Declined steamer blocker visit [] Patient/Family/Request visit [] Outpatient visit [] Follow-up visit [] Physician referral [] Code/Alert [x] Routine visit [] Staff referral [] Actively dying [] Patient sleeping [] Family support [] [] Out of room [] Palliative care [] [] Receiving care in room [] Pre-surgical visit [] Trauma [] Long length of stay [x] ICU visit [] Other: Relational/Emotional Strength [] Patient feels connected with others/family/visitors/staff [] Distress [] Loneliness/isolation [] Abandonment Spirituality of Patient [] Person of Lauren [] Attends Synagogue of their Lauren [] Believes in Prayer [] Reads Bible or Scientologist materials [] There are Spiritual issues to be addressed Law Firm Administrator Interventions [x] Prayer [x] Active listening [x] Non-anxious presence [x] Spiritual/emotional support [] Crisis/trauma care [] Spiritual counseling [] Bereavement support [] Provided bereavement packet [] Provided Bible/devotional materials [] Provided toy/stuffed animal, coloring book to patient or family member [] Provided Communion [] Anointing/[place] [] Salvation [] Completed spiritual assessment [] Other: Impact on Illness or Injury [] Angry [] Fearful [] Anxious [] Often cries [] Exhaustion [] Unable to work [] Unable to attend baptism [] Unable to walk/stand [] Unable to read [] Unable to drive [] Unable to eat/drink [] Unable to sleep [] Unable to be with family [] Patient intubated [] Other: Summary Time spent with patient
[2021-04-07 09:21] LABS: Chol HDL Ratio 2.63 mg/dL (1.0-5.00); Cholesterol 176 mg/dL (0-200); HDL Cholesterol 67 mg/dL (60-100); LDL Cholesterol Calculated 94 mg/dL (50-129); NT Pro B Type Natriuretic Pept 193 pg/mL (0-125); Triglycerides 73 mg/dL (0-150)
[2021-04-07 09:23] LABS: Estmated Average Glucose 103; Hemoglobin A1C 5.2 % (4.0-6.0)
--- NOTE | 2021-04-07 09:45 | PC.NURSE ---
Patient is A&ox4 this morning. He is getting up and using the bedside commode and the toilet. shortness of breath was noted after ambulating but he stated that was normal for him.
[2021-04-07 09:49] LABS: Add Urine Microscopic? NO; Charge for UA Resulting for Rev
[2021-04-07 10:20] LABS: Urine Appearance Clear (CLEAR); Urine Color Yellow (Yellow)
[2021-04-07 10:21] LABS: Bilirubin Urine Neg (Negative); Blood Urine Neg (Negative); Glucose Urine UA Norm (Normal); Ketones Urine Negative (Negative); Leukocyte Esterase Urine Negative (Negative); Nitrate Urine Negative (Negative); Protein Urine Neg (Negative); Specific Gravity, Urine 1.015 (1.005-1.030); Urobilinogen Urine Norm (Negative); pH Urine 6.5 (5-7)
--- NOTE | 2021-04-07 14:08 | P.PN_ITS ---
Subjective Subjective: Interval history: Patient was seen and examined this morning, SOB has improved at rest, though he has SOB with exertion,which he says that happens at home as well.He has to take rest and then carry with activities. Medications: Reviewed: Yes Vitals/I&O/Wt Last Vital Signs Temp 97.9 F 04/07/21 04:00 Pulse 71 04/07/21 13:32 Resp 14 04/07/21 12:50 BP 162/77 04/07/21 11:15 Pulse Ox 97 04/07/21 12:50 04/06/21 04/07/21 04/07/21 22:59 06:59 14:59 Intake Total 100 / 100 490 / 590 720 / 720 Output Total 350 / 350 250 / 250 Balance 100 / 100 140 / 240 470 / 470 Weight last 48 hrs Weight 80.796 kg Weight 77.111 kg Physical Exam Const: COMMON NORMALS: patient oriented x3 HENMT: COMMON NORMALS: normocephalic and atraumatic HEAD & SCALP: normocephalic and atraumatic Chest: CHEST: Yes Symmetrical chest wall rise Resp: OTHER: Diminished Air Entry B/L Cardio: COMMON NORMALS: regular rate, regular rhythm, S1 normal heart sound present, S2 normal heart sound present, No gallops present (Cardio), No murmurs present (Cardio), No rub (Cardio) and Peripheral pulses 2+ throughout RATE: regular rate RHYTHM: regular rhythm HEART SOUNDS: S1 normal heart sound present and S2 normal heart sound present PERIPHERAL PULSES: Peripheral pulses 2+ throughout GI: COMMON NORMALS: Normal to inspection, nondistended, normoactive bowel sounds present, Soft to palpation, non-tender, No hepatosplenomegaly present and no masses AUSCULTATION: Yes normoactive bowel sounds PALPATION: Yes Soft to palpation and Yes No hepatosplenomegaly present RECTAL EXAM: Yes deferred Extremity: COMMON NORMALS: no clubbing, cyanosis or edema and no pedal edema Neuro: COMMON NORMALS: patient oriented x3 Data : 04/07/21 07:30 04/07/21 07:30 Micro: Microbiology 04/06/21 08:30 Bacterial Antigens - Final Urine,Voided 04/06/21 17:22 Blood Culture - Preliminary Blood SPECIMEN COLLECTED 04/06/21 15:07 Blood Culture - Preliminary Blood SPECIMEN COLLECTED A&P Assessment and plan (1) Acute and chronic respiratory failure with hypercapnia: -Patient's PCO2 has responded well to BiPAP therapy, down to 80, but still has episodes of significant confusion, still having intercostal retractions, tachypnea, mild respiratory distress -Etiology is unclear, I was told it was secondary to his narcotic pain medications, but he tells me he has been taking these medications for over 20 ye ars for his chronic pain Plan: -Admit to ICU -Continue BiPAP -Repeat ABG in a.m., monitor mentation closely, monitor respiratory status closely -Start broad-spectrum antibiotic therapy to Rocephin azithromycin -Continue DuoNeb treatments every 4 hours -Continue Solu-Medrol - follow blood cultures, sputum cultures -Serial troponins, serial EKGs, aspirin, statin, Plavix will order cardiac echo, return for chest pain -We will order CT angiogram of the chest -Hold off on diuretics as patient does not look fluid overloaded -Also has an elevated ammonia level, 2-3 beers a day, does report drinking no significant LFT abnormalities, ciwa -UA pending -Full code -Lovenox for DVT prophylaxis Alcohol abuse, CIWA Chest pain, with a history of CAD, as above Hypertension, continue losartan Chronic pain, hold morphine, hold Dilaudid, if PCO2 improves will reinstitute History of carotid endarterectomy on the right History of carotid artery stenosis on the left, currently being monitored by outpatient physician Status: Acute (2) Acute alteration in mental status: Status: Acute (3) Pneumonia: Status: Acute (4) Essential (primary) hypertension: Status: Chronic (5) COPD (chronic obstructive pulmonary disease) with emphysema: Status: Chronic Attestations Medical Necessity Statement*: Patient needs to be in hospital for the management of respiratory failure. Coding Level of Care Code Acute Grocery Store Manager for [facility] Anita Diagnoses Acute and chronic respiratory failure with hypercapnia J96.22 Acute alteration in mental status R41.82 Pneumonia J18.9 Essential (primary) hypertension I10 COPD (chronic obstructive pulmonary disease) with emphysema J43.9
[2021-04-07] MEDS: pantoprazole 40 mg SDV IVP (17:34)
[2021-04-07] MEDS: cefTRIAXone 1,000 MG in sodium chloride 0.9% (plus) 50 ML 100 MG IV (17:35)
[2021-04-07] MEDS: enoxaparin 40 mg/0.4 mL Syringe SUBCUT (17:35)
[2021-04-07] MEDS: lactulose oral liq 20 gm/30 mL UDC PO (17:36)
--- NOTE | 2021-04-07 19:03 | PC.NURSE ---
Patient ambulated in room and oxygen levels dropped in the low 80's. Patient became short of breath but stated that was normal for him. Dr. Weldon aware
--- NOTE | 2021-04-07 19:12 | USCV_ITS ---
Brayden Lizama Age: 71 Gender: M : 1950 Exam Date: 04/07/2021 06:23 Ordering Phys: Matthew Beaulieu MD Technologist: Exam Location: [facility] [place] Indication: TIA BP: 123 / 72 HR: 68 Rhythm: Sinus Technical Quality: Adequate MEASUREMENTS (Male / Female) Normal Values 2D ECHO LV Diastolic Diameter PLAX 3.2 cm 4.2 - 5.9 / 3.9 - 5.3 cm LV Systolic Diameter PLAX 2.3 cm IVS Diastolic Thickness 1.2 cm 0.6 - 1.0 / 0.6 - 0.9 cm IVS Systolic Thickness 1.1 cm LVPW Diastolic Thickness 0.9 cm 0.6 - 1.0 / 0.6 - 0.9 cm LVPW Systolic Thickness 1.2 cm LVOT Diameter 2.0 cm LV Ejection Fraction 2D Teich 57.5 % LV Ejection Fraction MOD 2C 70.0 % LV Ejection Fraction 2C AL 70.1 % LA Diameter 2.8 cm LA Width 3.8 cm LA Height 4.2 cm RA Width 3.7 cm RA Height 4.2 cm Aorta at Sinotubular Diameter 2.7 cm DOPPLER AV Peak Velocity 224.7 cm/s LVOT Peak Velocity 120.0 cm/s AV Area Cont Eq vti 1.8 cm squared AV Area Cont Eq pk 1.7 cm squared MV Area PHT 5.0 cm squared Mitral E to A Ratio 0.8 MV E' Velocity 66.5 cm/s Mitral E to MV E' Ratio 13.6 Mitral E to LV E' Lateral Ratio 14.0 Mitral E to LV E' Septal Ratio 13.3 TR Peak Velocity 181.3 cm/s TR Peak Gradient 13.2 mmHg TV Peak E Velocity 89.0 cm/s Right Atrial Pressure 3.0 mmHg Pulmonary Artery Systolic Pressu 16.2 mmHg PV Peak Velocity 110.0 cm/s FINDINGS Left Ventricle Normal left ventricular size. LV systolic function is normal with EF of 50-55%.No regional wall motion abnormalities. Grade 1 diastolic dysfunction Right Ventricle The right ventricle is normal in size and function. Right Atrium The right atrium is normal in size. Left Atrium The left atrium is normal in size. Mitral Valve Structurally normal mitral valve without significant stenosis or prolapse. There is no mitral regurgitation. Aortic Valve Thickened aortic valve without signficant stenosis. There is trace aortic regurgitation. Tricuspid Valve Structurally normal tricuspid valve without significant stenosis or regurgitation. Insufficient TR jet to calculate RVSP Pulmonic Valve Structurally normal pulmonic valve without significant stenosis. There is no pulmonic regurgitation. Pericardium Normal pericardium without effusion. Aorta Normal ascending aorta dimension. CONCLUSIONS LV systolic function is normal with EF of 50-55% Grade 1 diastolic dysfunction Trace aortic regurgitation Compared to prior echocardiogram from 10/21/2017, patient now has grade 1 diastolic dysfunction Helio Pimentel MD (Electronically Signed) Final Date: 07 April 2021 12:40 S
--- NOTE | 2021-04-07 19:24 | USCV_ITS ---
Bradyen Lizama Age: 71 Gender: M : 1950 Exam Date: 04/07/2021 06:37 Ordering Phys: Matthew Beaulieu MD Technologist: Exam [place] [facility] [place] Indication: CCA STENOSIS Risk Factors: Smoker Previous Vascular Surgery: L CEA Right Brachial BP: / Left Brachial BP: / Right Left Velocity (cm/s) Spectral Plaque Velocity (cm/s) Spectral Plaque Syst/Diast Broadening Syst/Diast Broadening 35.20/ 4.80 Prox CCA 56.10 / 17.70 49.50/ 8.50 Mid CCA 61.10 / 20.60 43.50/ 8.50 Distal CCA 59.60 / 13.50 / Adam Prox ICA 51.80 / 13.50 / Adam Mid ICA 119.60/ 37.40 / Adam Distal ICA 130.00/ 53.80 51.40 ECA 61.10 Hetro ICA/CCA 2.13 Antegrade Vertebral Antegrade 71.00/ 20.60 cm/s 59.00/ 19.70 cm/s Tri Subclavian Tri FINDINGS Comparison: none available. Complete chronic appearing occlusion right ICA. Moderate atherosclerotic plaque right CCA. Mild stenosis and plaque left carotid. Bilateral antegrade vertebral arteries. CONCLUSIONS Occluded right ICA. Left ICA stenosis < 50%. Dr. Ella Brewster DO (Electronically Signed) Final Date: 07 April 2021 09:47 S
[2021-04-07] MEDS: azithromycin 500 MG in sodium chloride 0.9% 250 ML 250 MG IV (19:27)
[2021-04-07] MEDS: atorvastatin 40 mg Tablet PO (20:09)
[2021-04-08] VITALS (34 sets, daily range): BP systolic 148–199; BP diastolic 74–115; PULSE 65–105; RESP 14–29; TEMP 36.3–36.8; O2SAT 84–98
[2021-04-08] MEDS: ipratropium-albuterol 3 mL Neb INHALATION ×7 (00:17→23:56)
--- NOTE | 2021-04-08 00:19 | PC.NURSE ---
Pt's BP began to run hypertensive, this nurse called the contact lens polisher physician and got an order for labetalol 10mg IVP Q 4hrs PRN for systolic greater than 180 and diastolic greater than 100, hold if HR is less than 60.
[2021-04-08] MEDS: labetalol 5 mg/mL SDV 20mL 10 MG IVP ×3 (00:27→08:28)
--- NOTE | 2021-04-08 01:28 | PC.NURSE ---
Patient is refusing to have his EKG leads put back on, this nurse educated him on the importance of being able to monitor his heart while in the ICU, pt still refused.
[2021-04-08 04:51] LABS: ABG PH Result 7.41 (7.35-7.45); Arterial Blood Gas Hematocrit 38.4 % (42-52); Base Excess ABG 14.8 mmol/L (-2.0-2.0); Blood Gas Allen Test Pos; Blood Gas Sample Type Arterial; HCO3 ABG 42.6 mmol/L (22-26)
[2021-04-08 04:57] LABS: Blood Gas Sample Site Radial, left; Oxygen Device BIPAP
[2021-04-08 06:03] LABS: Hematocrit 40.5 % (42.0-52.0); Hemoglobin 12.5 g/dL (11.7-16.6); Lymphocytes # 0.5 10^3/uL (0.8-4.8); Mean Corpuscular HGB Conc 30.9 g/dL (30.0-36.0); Mean Corpuscular Hemoglobin 28.3 pg (28.0-34.0); Mean Corpuscular Volume 91.6 fl (80-94); Mean Platelet Volume 10.4 fL (7.4-10.4); Monocytes # 0.2 10^3/uL (0.2-0.9); Monocytes % 2.7 %; Neutrophils # 6.41 10^3/uL (1.8-7.7); Neutrophils % 89.9 %; Nucleated Red Blood Cells % 0 %; Platelet Count 164 10^3/cmm (130-400); Red Blood Count 4.42 10^6/uL (4.1-5.3); Red Cell Distribution Width 12.4 % (12.1-15.1); White Blood Count 7.1 10^3/uL (4.0-10.0)
[2021-04-08 06:18] LABS: Ammonia 54 umol/L (16-60)
[2021-04-08 06:21] LABS: Alanine Aminotransferase 12 U/L (0-41); Albumin Level 3.7 g/dL (3.5-5.2); Alkaline Phosphatase 67 IU/L (40-130); Anion Gap 6.9 (5-19); Aspartate Amino Transferase 27 U/L (0-40); Blood Urea Nitrogen 22 mg/dL (8-23); Calcium 9.1 mg/dL (8.5-10.5); Carbon Dioxide 40 mmol/L (22-29); Chloride 98 mmol/L (98-107); Globulin 2.7 g/dL (1.3-4.6); Glucose 134 mg/dL (65-115); Osmolality Calculated 295 mOsm/kg (285-295); Phosphorus 3.7 mg/dL (2.5-4.5); Potassium 4.9 mmol/L (3.5-5.1); Sodium 140 mmol/L (136-145); Total Bilirubin 0.8 mg/dL (0.15-1.2); Total Protein 6.4 g/dL (6.6-8.7)
[2021-04-08] MEDS: budesonide 0.5 mg/2 mL Neb INHALATION ×2 (08:07→19:32)
[2021-04-08] MEDS: cilostazol 100 mg Tablet 50 MG PO ×2 (08:27→17:31)
[2021-04-08] MEDS: amlodipine 5 mg Tablet PO (08:27)
[2021-04-08] MEDS: tamsulosin 0.4 mg Capsule PO (08:27)
[2021-04-08] MEDS: aspirin 81 mg EC Tablet PO (08:27)
[2021-04-08] MEDS: thiamine 100 mg Tablet PO (08:27)
[2021-04-08] MEDS: clopidogrel 75 mg Tablet PO (08:27)
[2021-04-08] MEDS: multivitamin therapeutic Tablet 1 TAB PO (08:27)
[2021-04-08] MEDS: losartan 50 mg Tablet PO (08:27)
[2021-04-08] MEDS: folic acid 1 mg Tablet PO (08:27)
--- NOTE | 2021-04-08 11:13 | PC.CHAP ---
Pastoral Care Encounter/Spiritual Assessment Type of Contact [] Declined websphere developer visit [] Patient/Family/Request visit [] Outpatient visit [] Follow-up visit [] Physician referral [] Code/Alert [x] Routine visit [] Staff referral [] Actively dying [] Patient sleeping [] Family support [] [] Out of room [] Palliative care [] [] Receiving care in room [] Pre-surgical visit [] Trauma [] Long length of stay [] ICU visit [] Other: Relational/Emotional Strength [] Patient feels connected with others/family/visitors/staff [] Distress [] Loneliness/isolation [] Abandonment Spirituality of Patient [] Person of Lauren [] Attends Oriental Orthodox of their Lauren [x] Believes in Prayer [] Reads Bible or Yazdanism materials [] There are Spiritual issues to be addressed Assistant Media Planner Interventions [x] Prayer [x] Active listening [] Non-anxious presence [] Spiritual/emotional support [] Crisis/trauma care [] Spiritual counseling [] Bereavement support [] Provided bereavement packet [] Provided Bible/devotional materials [] Provided toy/stuffed animal, coloring book to patient or family member [] Provided Communion [] Anointing/[place] [] Salvation [] Completed spiritual assessment [] Other: Impact on Illness or Injury [] Angry [] Fearful [] Anxious [] Often cries [] Exhaustion [] Unable to work [] Unable to attend hindu [] Unable to walk/stand [] Unable to read [] Unable to drive [] Unable to eat/drink [] Unable to sleep [] Unable to be with family [] Patient intubated [] Other: Summary He seemed to up in Spirit, perhaps a bit nervous. Wanting to get well and get out of here. Time spent with patient 2 minutes
--- NOTE | 2021-04-08 15:16 | PC.RESP ---
RT Shift Note Frequent safety and respiratory rounds continue. Orders completed as indicated. Patient monitored pre and post treatments throughout shift. Patient [Did.] tolerate treatments appropriately. Condition [Improved.. Patient and/or retail representative educated on respiratory treatment and medications. Patient and/or retail representative [verbalized understanding]. Will continue to monitor patient progress.
--- NOTE | 2021-04-08 15:53 | PM.PN ---
Subjective Subjective: Interval history: Patient was seen and examined this morning, SOB has improved , though he has SOB with exertion.Has significant desturation on exertion. Medications: Reviewed: Yes Vitals/I&O/Wt Last Vital Signs Temp 97.4 F L 04/08/21 03:52 Pulse 94 04/08/21 15:16 Resp 18 04/08/21 15:16 BP 166/86 04/08/21 13:00 Pulse Ox 93 04/08/21 15:16 04/08/21 04/08/21 04/08/21 06:59 14:59 22:59 Intake Total 240 / 1330 650 / 650 Balance 240 / 630 650 / 650 Weight last 48 hrs Weight 81.828 kg Weight 80.796 kg Physical Exam Const: COMMON NORMALS: patient oriented x3 HENMT: COMMON NORMALS: normocephalic and atraumatic HEAD & SCALP: normocephalic and atraumatic Chest: CHEST: Yes Symmetrical chest wall rise Resp: OTHER: Diminished Air Entry B/L Cardio: COMMON NORMALS: regular rate, regular rhythm, S1 normal heart sound present, S2 normal heart sound present, No gallops present (Cardio), No murmurs present (Cardio), No rub (Cardio) and Peripheral pulses 2+ throughout RATE: regular rate RHYTHM: regular rhythm HEART SOUNDS: S1 normal heart sound present and S2 normal heart sound present PERIPHERAL PULSES: Peripheral pulses 2+ throughout GI: COMMON NORMALS: Normal to inspection, nondistended, normoactive bowel sounds present, Soft to palpation, non-tender, No hepatosplenomegaly present and no masses AUSCULTATION: Yes normoactive bowel sounds PALPATION: Yes Soft to palpation and Yes No hepatosplenomegaly present RECTAL EXAM: Yes deferred Extremity: COMMON NORMALS: no clubbing, cyanosis or edema and no pedal edema Neuro: COMMON NORMALS: patient oriented x3 Data : 04/08/21 05:25 04/08/21 05:25 Micro: Microbiology 04/06/21 08:30 Urine Culture - Preliminary Urine,Voided 04/06/21 17:22 Blood Culture - Preliminary Blood NEGATIVE TO DATE 04/06/21 15:07 Blood Culture - Preliminary Blood NEGATIVE TO DATE 04/06/21 08:30 Bacterial Antigens - Final Urine,Voided A&P Assessment and plan (1) Acute and chronic respiratory failure with hypercapnia: -Patient's PCO2 has responded well to BiPAP therapy, down to 80, but still has episodes of significant confusion, still having intercostal retractions, tachypnea, mild respiratory distress -Etiology is unclear, I was told it was secondary to his narcotic pain medications, but he tells me he has been taking these medications for over 20 years for his chronic pain Plan: -Admit to ICU -Continue BiPAP -Repeat ABG in a.m., monitor mentation closely, monitor respiratory status closely -Start broad-spectrum antibiotic therapy to Rocephin azithromycin -Continue DuoNeb treatments every 4 hours -Continue Solu-Medrol - follow blood cultures, sputum cultures -Serial troponins, serial EKGs, aspirin, statin, Plavix will order cardiac echo, return for chest pain -We will order CT angiogram of the chest -Hold off on diuretics as patient does not look fluid overloaded -Also has an elevated ammonia level, 2-3 beers a day, does report drinking no significant LFT abnormalities, ciwa -UA pending -Full code -Lovenox for DVT prophylaxis Alcohol abuse, CIWA Chest pain, with a history of CAD, as above Hypertension, continue losartan Chronic pain, hold morphine, hold Dilaudid, if PCO2 improves will reinstitute History of carotid endarterectomy on the right History of carotid artery stenosis on the left, currently being monitored by outpatient physician Status: Acute (2) Acute alteration in mental status: Status: Acute (3) Pneumonia: Status: Acute (4) Essential (primary) hypertension: Status: Chronic (5) COPD (chronic obstructive pulmonary disease) with emphysema: Status: Chronic Attestations Medical Necessity Statement*: Patient needs to be in hospital for the management of Respiratory failure. Coding Level of Care Code Acute Steam Trap Man for [facility] Fwd Diagnoses Acute and chronic respiratory failure with hypercapnia J96.22 Acute alteration in mental status R41.82 Pneumonia J18.9 Essential (primary) hypertension I10 COPD (chronic obstructive pulmonary disease) with emphysema J43.9
[2021-04-08 17:28] LABS: ABG PCO2 67.8 mmHg (35-45)
[2021-04-08] MEDS: cefTRIAXone 1,000 MG in sodium chloride 0.9% (plus) 50 ML 100 MG IV (17:31)
[2021-04-08] MEDS: pantoprazole 40 mg SDV IVP (17:31)
[2021-04-08] MEDS: enoxaparin 40 mg/0.4 mL Syringe SUBCUT (17:32)
[2021-04-08] MEDS: azithromycin 500 MG in sodium chloride 0.9% 250 ML 250 MG IV (20:42)
[2021-04-08] MEDS: atorvastatin 40 mg Tablet PO (20:43)
[2021-04-09] VITALS (13 sets, daily range): BP systolic 155–202; BP diastolic 73–112; PULSE 89–104; RESP 16–24; TEMP 36.6; O2SAT 85–96; BMI 24.4
[2021-04-09] MEDS: ipratropium-albuterol 3 mL Neb INHALATION ×3 (03:29→11:15)
[2021-04-09 04:30] LABS: ABG PH Result 7.43 (7.35-7.45); Arterial Blood Gas Hematocrit 40.2 % (42-52); Base Excess ABG 13.6 mmol/L (-2.0-2.0); Blood Gas Allen Test Pos; Blood Gas Sample Type Arterial; HCO3 ABG 40.6 mmol/L (22-26); PO2 ABG 92.1 mmHg (80.0-100.0)
[2021-04-09 04:32] LABS: Blood Gas Sample Site Radial, right; Oxygen Device NC
[2021-04-09 05:16] LABS: ABG PCO2 60.8 mmHg (35-45)
[2021-04-09 05:16] LABS: Hematocrit 40.8 % (42.0-52.0); Hemoglobin 12.8 g/dL (11.7-16.6); Lymphocytes # 0.5 10^3/uL (0.8-4.8); Lymphocytes % 6.2 %; Mean Corpuscular HGB Conc 31.4 g/dL (30.0-36.0); Mean Corpuscular Hemoglobin 28.1 pg (28.0-34.0); Mean Corpuscular Volume 89.5 fl (80-94); Mean Platelet Volume 10.1 fL (7.4-10.4); Monocytes # 0.4 10^3/uL (0.2-0.9); Monocytes % 5.8 %; Neutrophils % 87.6 %; Nucleated Red Blood Cells % 0 %; Platelet Count 170 10^3/cmm (130-400); Red Blood Count 4.56 10^6/uL (4.1-5.3); Red Cell Distribution Width 12.6 % (12.1-15.1); White Blood Count 7.6 10^3/uL (4.0-10.0)
[2021-04-09 05:34] LABS: Ammonia 31 umol/L (16-60)
[2021-04-09 05:35] LABS: Alanine Aminotransferase 17 U/L (0-41); Albumin Level 3.5 g/dL (3.5-5.2); Alkaline Phosphatase 65 IU/L (40-130); Anion Gap 8.5 (5-19); Aspartate Amino Transferase 30 U/L (0-40); Blood Urea Nitrogen 20 mg/dL (8-23); Carbon Dioxide 37 mmol/L (22-29); Chloride 99 mmol/L (98-107); Globulin 2.9 g/dL (1.3-4.6); Glucose 112 mg/dL (65-115); Magnesium 2.2 mg/dL (1.7-2.3); Osmolality Calculated 293 mOsm/kg (285-295); Phosphorus 2.6 mg/dL (2.5-4.5); Potassium 4.5 mmol/L (3.5-5.1); Sodium 140 mmol/L (136-145); Total Bilirubin 0.8 mg/dL (0.15-1.2); Total Protein 6.4 g/dL (6.6-8.7)
[2021-04-09 07:57] LABS: Glucose Point of Care 116 mg/dL (70-110)
[2021-04-09] MEDS: budesonide 0.5 mg/2 mL Neb INHALATION (07:58)
[2021-04-09] MEDS: amlodipine 5 mg Tablet PO (08:32)
[2021-04-09] MEDS: folic acid 1 mg Tablet PO (08:32)
[2021-04-09] MEDS: thiamine 100 mg Tablet PO (08:32)
[2021-04-09] MEDS: cilostazol 100 mg Tablet 50 MG PO (08:32)
[2021-04-09] MEDS: clopidogrel 75 mg Tablet PO (08:32)
[2021-04-09] MEDS: multivitamin therapeutic Tablet 1 TAB PO (08:32)
[2021-04-09] MEDS: tamsulosin 0.4 mg Capsule PO (08:32)
[2021-04-09] MEDS: aspirin 81 mg EC Tablet PO (08:33)
[2021-04-09] MEDS: lactulose oral liq 20 gm/30 mL UDC PO (08:33)
[2021-04-09] MEDS: losartan 50 mg Tablet PO (08:33)
--- NOTE | 2021-04-09 09:02 | PC.CHAP ---
Pastoral Care Encounter/Spiritual Assessment Type of Contact [] Declined rigging foreman visit [] Patient/Family/Request visit [] Outpatient visit [] Follow-up visit [] Physician referral [] Code/Alert [x] Routine visit [] Staff referral [] Actively dying [] Patient sleeping [] Family support [] [] Out of room [] Palliative care [] [] Receiving care in room [] Pre-surgical visit [] Trauma [] Long length of stay [x] ICU visit [] Other: Relational/Emotional Strength [] Patient feels connected with others/family/visitors/staff [] Distress [] Loneliness/isolation [] Abandonment Spirituality of Patient [x] Person of Lauren [] Attends Moravian of their Lauren [] Believes in Prayer [] Reads Bible or Congregational materials [] There are Spiritual issues to be addressed Tool Engineer Interventions [x] Prayer [x] Active listening [x] Non-anxious presence [x] Spiritual/emotional support [] Crisis/trauma care [] Spiritual counseling [] Bereavement support [] Provided bereavement packet [] Provided Bible/devotional materials [] Provided toy/stuffed animal, coloring book to patient or family member [] Provided Communion [] Anointing/Sandy [] Salvation [x] Completed spiritual assessment [] Other: Impact on Illness or Injury [] Angry [] Fearful [] Anxious [] Often cries [] Exhaustion [] Unable to work [] Unable to attend adventism [] Unable to walk/stand [] Unable to read [] Unable to drive [] Unable to eat/drink [] Unable to sleep [] Unable to be with family [] Patient intubated [] Other: Summary patient feeling stronger... feels perhaps he can go home today Time spent with patient 10 min
--- NOTE | 2021-04-09 11:49 | P.DS_ITS ---
Discharge Providers Date of Admission: 04/06/21 17:48 Date of Discharge: April 09, 2021 Attending Provider at Admission: Matthew Beaulieu MD Attending Provider at Discharge: Eros Weldon MD Primary Care Provider: ANDREE Young Diagnoses at Discharge Discharge Diagnosis (1) Acute and chronic respiratory failure with hypercapnia: Status: Acute (2) Acute alteration in mental status: Status: Acute (3) Pneumonia: Status: Acute (4) Essential (primary) hypertension: Status: Chronic (5) COPD (chronic obstructive pulmonary disease) with emphysema: Status: Chronic Reason for Visit Reason for Visit: TIA LIKE SYMPTOMS 13 HRS AGO Hospital Course Hospital Course 71 year old male with a past medical history of CAD status post stenting x1, history of bullous emphysema, COPD, history of right carotid endarterectomy, history of left carotid artery stenosis, hypertension, hyperlipidemia, who presents to [facility] due to complaints of chest pain, shortness of breath and confusion. During the hospital stay he was managed for acute and chronic respiratory failure with hypercapnia Secondary to COPD exacerbation, he was kept on steroids, nebs, empiric antibiotics, BiPAP support,CT angio chest PE protcl:No evidence for pulmonary embolism. Extensive paraseptal and [id number] centrilobular emphysematous changes in the lungs with bulla formation. Blood cultures were negative at the time of discharge, bacterial antigen panel negative.Patient responded well to the above medical management. At the time of discharge his respiratory status was at his baseline, he was saturating well on 4 L oxygen through nasal which is his home oxygen.History of carotid endarterectomy on the right. History of carotid artery stenosis on the left, currently being monitored by outpatient physician. CV carotid duplex BI: Occluded right ICA.Left ICA stenosis < 50%. Chest pain: Likely musculoskeletal: Serial troponin trend was negative, 2D echo done during the hospital stay: LV systolic function is normal with EF of 50- 55%,Grade 1 diastolic dysfunction,Trace aortic regurgitation,Compared to prior echocardiogram from 10/21/2017, patient now has grade 1 diastolic. dysfunction. Patient was chest pain-free during the hospital stay. No further work-up was done. Patient was discharged in stable condition to home. Physical Exam Const: COMMON NORMALS: patient oriented x3 HENMT: COMMON NORMALS: normocephalic and atraumatic HEAD & SCALP: normocephalic and atraumatic Chest: CHEST: Yes Symmetrical chest wall rise Resp: OTHER: Diminished Air Entry B/L , b/l whezzing Cardio: COMMON NORMALS: regular rate, regular rhythm, S1 normal heart sound present, S2 normal heart sound present, No gallops present (Cardio), No murmurs present (Cardio), No rub (Cardio) and Peripheral pulses 2+ throughout RATE: regular rate RHYTHM: regular rhythm HEART SOUNDS: S1 normal heart sound present and S2 normal heart sound present PERIPHERAL PULSES: Peripheral pulses 2+ throughout GI: COMMON NORMALS: Normal to inspection, nondistended, normoactive bowel sounds present, Soft to palpation, non-tender, No hepatosplenomegaly present and no masses AUSCULTATION: Yes normoactive bowel sounds PALPATION: Yes Soft to palpation and Yes No hepatosplenomegaly present RECTAL EXAM: Yes deferred Extremity: COMMON NORMALS: no clubbing, cyanosis or edema and no pedal edema Neuro: COMMON NORMALS: patient oriented x3 Discharge Data Data Completed and Pending: Completed Studies During Hospitalization Category Date Time Status CT angio chest PE protcl [id number] Rout ine Cat Scan 04/06/21 18:36 Completed XR chest 1V ira ble [id number] Stat Exams 04/06/21 15:20 Completed CV carotid duplex BI* [id number] Routine Ultrasound 04/07/21 19:24 Completed CV. echo complete * [id number] Routine Ultrasound 04/07/21 19:12 Completed Pending at discharge Category Date Time Status Blood Culture Sta t Lab 04/06/21 17:22 Results Sputum Culture an d Gram Stain Stat Lab 04/06/21 17:19 Uncollected Labs from last 24 hours 04/09/21 04/09/21 04/09/21 07:49 05:05 05:05 WBC RBC Hgb Hct MCV MCH MCHC RDW Plt Count MPV Neut % (Auto) Lymph % (Auto) [place] % (Auto) Eos % (Auto) Baso % (Auto) Neut # (Auto) Lymph # (Auto) [place] # (Auto) Eos # (Auto) Baso # (Auto) Nucleated RBC % (a uto) Nucleated RBCs # Specimen Type Sample Site ABG pH ABG pCO2 ABG pO2 ABG HCO3 ABG Base Excess Rigo Test Hematocrit O2 Delivery Device O2 Liters/Min FiO2 Extrusion Die Repair Manager ID Sodium 140 Potassium 4.5 Chloride 99 Carbon Dioxide 37 H Anion Gap 8.5 BUN 20 Creatinine 0.7 GFR Calculation Not Reportable Glucose 112 POC Glucose 116 H Calculated Osmolal ity 293 Calcium 9.0 Phosphorus 2.6 Magnesium 2.2 Total Bilirubin 0.8 AST 30 ALT 17 Alkaline Phosphata se 65 Ammonia 31 Total Protein 6.4 L Albumin 3.5 Globulin 2.9 04/09/21 04/09/21 04/08/21 05:05 04:19 04:25 WBC 7.6 RBC 4.56 Hgb 12.8 Hct 40.8 L MCV 89.5 MCH 28.1 MCHC 31.4 RDW 12.6 Plt Count 170 MPV 10.1 Neut % (Auto) 87.6 Lymph % (Auto) 6.2 [place] % (Auto) 5.8 Eos % (Auto) 0.0 Baso % (Auto) 0.0 Neut # (Auto) 6.70 Lymph # (Auto) 0.5 L [place] # (Auto) 0.4 Eos # (Auto) 0.0 Baso # (Auto) 0.0 Nucleated RBC % (a uto) 0 Nucleated RBCs # 0.0 Specimen Type Arterial Arterial Sample Site Radial, right Radial, left ABG pH 7.43 7.41 ABG pCO2 60.8 H* 67.8 H* ABG pO2 92.1 105.0 H ABG HCO3 40.6 H 42.6 H ABG Base Excess 13.6 H 14.8 H Rigo Test Pos Pos Hematocrit 40.2 L 38.4 L O2 Delivery Device Nc Bipap O2 Liters/Min 4.0 FiO2 40.0 Extrusion Die Repair Manager ID [email or web address] Hinja Sodium Potassium Chloride Carbon Dioxide Anion Gap BUN Creatinine GFR Calculation Glucose POC Glucose Calculated Osmolal ity Calcium Phosphorus Magnesium Total Bilirubin AST ALT Alkaline Phosphata se Ammonia Total Protein Albumin Globulin Vitals: Last Vital Signs Temp 97.8 F 04/09/21 08:00 Pulse 90 04/09/21 11:16 Resp 18 04/09/21 11:16 BP 187/112 04/09/21 08:33 Pulse Ox 93 04/09/21 11:16 Discharge Plan Discharge Patient Disposition: Home Condition: Stable Prescriptions: New prednisone 20 mg tablet 40 mg PO DAILY Qty: 7 RF: 0 Continued losartan [Cozaar] 50 mg tablet 50 mg PO DAILY RF: 0 cilostazol 50 mg tablet 50 mg PO BID RF: 0 budesonide 0.5 mg/2 mL suspension for nebulization 0.5 mg INHALATION BID Qty: 120 RF: 11 Perforomist 20 mcg/2 mL solution for nebulization 2 ml INHALATION Q12H Qty: 120 RF: 11 tamsulosin 0.4 mg capsule 0.4 mg PO DAILY RF: 0 morphine 15 mg tablet extended release 15 mg PO Q12H RF: 0 hydromorphone 2 mg tablet 2 mg PO TID RF: 0 clopidogrel 75 mg tablet 75 mg PO DAILY RF: 0 albuterol sulfate [Ventolin HFA] 90 mcg/actuation HFA aerosol inhaler 2 inh INHALATION QID PRN (Reason: shortness of breath or wheezing) Qty: 18 RF: 1 albuterol sulfate 2.5 mg /3 mL (0.083 %) solution for nebulization 2.5 mg INHALATION Q4H PRN (Reason: shortness of breath or wheezing) Qty: 300 RF: 11 Lasix 20 mg tablet 20 - 40 mg PO DAILY PRN (Reason: edema) RF: 0 Discharge Orders: Discharge Order (Routine); Ordered 04/09/21 Ordered By: Eros Weldon Referrals: Gian Stacy [email or web address] [Primary Care Provider] - Discharge Diet: Regular Discharge Activity: Resume usual activity Patient Instructions: Opioid Safety Discharge Attestations Time Spent in Discharge Care*: less than 30 min Specific Discharge Activities: educating patient, educating and/or supporting family/caregiver, discussing with case supervisor/social workers/dc planners, documenting/other paperwork and evaluating patient/reviewing data Status at Discharge: Cognitive status at discharge: cognitively intact , Behavioral status at discharge: cooperative , Functional status at discharge: independent ambulation Overall status at discharge: patient is back to baseline Quality Metrics Clinical Quality Measures During this hospital stay, did patient experience: None Coding Level of Care Code Acute Chg FW DC note Diagnoses Acute and chronic respiratory failure with hypercapnia J96.22 Acute alteration in mental status R41.82 Pneumonia J18.9 Essential (primary) hypertension I10 COPD (chronic obstructive pulmonary disease) with emphysema J43.9
--- NOTE | 2021-04-09 11:59 | PC.SOCIAL ---
IMM Update Page 2 updated. Reviewed and given to patient. Initialed, timed and signed.
--- NOTE | 2021-04-10 08:49 | PC.SOCIAL ---
discharge follow up call made. patient picked up Prednisone from madelaine arellano and is taking as prescribed. patient aware of follow up appointment with Yolanda Stacy. Denies any questions or concerns.
--- NOTE | 2021-04-11 07:58 | PC.RESP ---
PULMONARY REHAB INFORMATION SENT TO PATIENT.
== END 2021-04-09 16:00 | disposition home or self-care (01) | DRG 189 ==
LOC: ER 17:48 → MEDSURG 23:40 → ICU 04-07 01:41
PROVIDERS: Admitting Provider Family Medicine; Emergency Provider Emergency Medicine; PCP Nurse Practitioner; Visit Provider Internal Medicine
DX: J96.22 Acute and chronic respiratory failure with hypercapnia (principal); J18.9 Pneumonia, unspecified organism; I25.10 Atherosclerotic heart disease of native coronary artery without angina pectoris; J43.9 Emphysema, unspecified; I10 Essential (primary) hypertension; E78.5 Hyperlipidemia, unspecified; G89.29 Other chronic pain; I65.22 Occlusion and stenosis of left carotid artery; Z95.5 Presence of coronary angioplasty implant and graft; Z98.52 Vasectomy status; Z82.49 Family history of ischemic heart disease and other diseases of the circulatory system; Z80.9 Family history of malignant neoplasm, unspecified; Z87.891 Personal history of nicotine dependence
CPT/HCPCS: 36415; 36416; 36600; 71045; 71275; 80053; 80061; 80307; 81001; 81003; 82140; 82550; 82803; 82962; 83036; 83605; 83735; 83880; 84100; 84145; 84443; 84484; 85025; 85651; 86140; 86403; 87040; 87086; 93005; 93306; 93880; 94640; 94660; 96365; 96372; 96375; 97110; 97161; 97165; 97530; 99291; C9113; J0456; J0696; J1650; J2920; J2930; J3411; J3475; J3490; J7050; J7626; Q9967

== ENCOUNTER 2021-05-21 13:20 | Inpatient (IN) | payer MEDICARE, SELFPAY ==
[2021-05-21] VITALS (20 sets, daily range): BP systolic 145–197; BP diastolic 79–126; PULSE 71–111; RESP 14–24; TEMP 36.6–37.1; O2SAT 72–97; BMI 23.8
--- NOTE | 2021-05-21 13:39 | ECG_ITS ---
[facility] Test Date: 2021-05-21 Pat Name: Brayden Adler Department: Room: Gender: Male Transport Aide: : 1950 Requested By: Elvin Marquez Order Number: [id number] Juanis MD: Wilbur Sandy M.D. Measurements Intervals [place] Rate: 102 P: 82 MI: 139 QRS: 61 QRSD: 92 T: 50 QT: 322 QTc: 421 Interpretive Statements SINUS TACHYCARDIA ABNORMAL RHYTHM ECG Compared to ECG 04/06/2021 15:26:51 Sinus rhythm no longer present Electronically Signed On 05-22-2021 1:24:39 CDT by Wilbur Sandy M.D. [email or web address].[email or web address]saThe Rounds/store/NU/[id number] f
--- NOTE | 2021-05-21 13:39 | XR_ITS ---
WS: [id number] Exam: XR chest 1V portable [id number] Date/Time of Exam: 05/21/2021 1:42 PM Reason For Exam: dyspnea Comparison 10/20/2017 and 04/06/2021. Extensive chronic change in the right midlung zone. There are also chronic changes in the lateral asp ect of the mid left lung. There are scattered large emphysematous blebs noted. The lungs are chronica lly hyperinflated. Cardiomediastinal silhouette is unremarkable for technique. The main pulmonary art eries are enlarged. Blunted costophrenic angles appear to be chronic and are likely secondary to pleu ral thickening. Regional bony structures appear to be intact. A vascular stent is noted along the sup erior margin of the aortic arch. XR/XR chest 1V portable [id number] IMPRESSION: 1. Extensive bilateral chronic pulmonary changes with signs of bullous emphysem a and hyperinflation. No acute process is suspected. 2. Prominent main pulmonary arteries which might indicate pulmonary hypertensio n.
[2021-05-21 13:53] LABS: Basophils % 0.4 %; Eosinophils # 0.1 10^3/uL (0.0-0.8); Eosinophils % 0.8 %; Hemoglobin 12.5 g/dL (11.7-16.6); Lymphocytes # 0.7 10^3/uL (0.8-4.8); Lymphocytes % 9.6 %; Mean Corpuscular HGB Conc 29.8 g/dL (30.0-36.0); Mean Corpuscular Volume 94.2 fl (80-94); Mean Platelet Volume 10.4 fL (7.4-10.4); Monocytes # 0.5 10^3/uL (0.2-0.9); Monocytes % 7.3 %; Neutrophils # 6.01 10^3/uL (1.8-7.7); Neutrophils % 81.2 %; Nucleated Red Blood Cells % 0 %; Platelet Count 157 10^3/cmm (130-400); Red Blood Count 4.46 10^6/uL (4.1-5.3); Red Cell Distribution Width 12.5 % (12.1-15.1); White Blood Count 7.4 10^3/uL (4.0-10.0)
[2021-05-21 14:13] LABS: Troponin(5th) Baseline 18 ng/L (0-15)
[2021-05-21] MEDS: ipratropium-albuterol 3 mL Neb INHALATION ×3 (14:20)
[2021-05-21 14:22] LABS: Blood Urea Nitrogen 9 mg/dL (8-23); Calcium 9.4 mg/dL (8.5-10.5); Carbon Dioxide 40 mmol/L (22-29); Chloride 94 mmol/L (98-107); Glucose 98 mg/dL (65-115); NT Pro B Type Natriuretic Pept 116 pg/mL (0-125); Osmolality Calculated 287 mOsm/kg (285-295); Sodium 139 mmol/L (136-145)
[2021-05-21] MEDS: NIFEdipine ER (24 hr) 30 mg Tablet PO (14:27)
[2021-05-21 15:00] LABS: SARS Covid-2 Antigen Negative (Negative)
--- NOTE | 2021-05-21 15:36 | PC.PHAR ---
pt states he takes care of his own medications-pt states he only uses the albuterol in the nebulizer-
--- NOTE | 2021-05-21 15:38 | ED_ITS ---
HPI - General Adult General: Chief complaint: Shortness of Breath/Dyspnea Stated complaint: LOW O2 Time Seen by Provider: 05/21/21 13:32 History of Present Illness: HPI narrative: CC: Dyspnea HPI: This is a [71] yo full-code patient w/ hx of COPD on home BIPAP at night extensive prior hospitalization abilateral wheezing and increased work of breathing x 3 days . + productive cough x 3 days. Patient denies fever/chill, or sputum production. Reports symptoms started 3 days ago and has had difficulty breathing since. Denies chest pain, N/V, diaphoresis, exertional shortness of breath, GI or other complaints. Denies any pleuritic chest pain, recent jimbo desmond/immobilization/travel, or hematemesis or hx of VTE in the past. En route, patient was placed in 15L with O2 sats in the low 90s. Significant dyspnea en route and increased work of breathing per rescue. Rest of hx limited due to respiratory distress. Onset: 3 days ago Duration: ongoing for the last 3 days Location: home Severity: moderate Review of Systems Narrative: Constitutional: No fever, no chills. HEENT: No vision changes CV: No chest pain, no palpitations PULM: +cough, +dyspnea, +wheezing GI: No abdominal pain, no N/V/D. : No dysuria MSKEL: No muscle pain SKIN: No new rashes, no lesions. NEURO: No headache, no focal weakness. HEME: No visible bruises PSYCH: Normal mood PFSH ED PFSH: Medical History (Updated 05/21/21 @ 17:08 by Josemanuel Hernadez MD) BMI 24.0-24.9, adult CAD (coronary artery disease) Chronic respiratory failure COPD (chronic obstructive pulmonary disease) with emphysema Essential (primary) hypertension Neurogenic thoracic outlet syndrome Surgical History History of carotid angioplasty History of vasectomy Family History Other Cancer FH: CVA (cerebrovascular accident) Hypertension Social History (Updated 05/21/21 @ 17:12 by Josemanuel Hernadez MD) Smoking and tobacco status: former smoker Second hand smoke exposure: No Smoking risk assessment/counseling performed?: No Alcohol intake: never Desire information about alcohol rehabilitation?: No Counseling given: No Substance/Drug Use: never Desire information about substance/drug rehabilitation?: No Counseling given: No Adopted: No Caregiver/support person: No Lives independently: Yes Household members: significant other Housing: House Marital status: / Number of children: 2 service: Yes branch: [employer] Current occupational status: retired Current occupational exposures/hazards: No History of recent travel: No Current gender identity: Male Physical Exam Narrative: EXAM NARRATIVE: Head: Atraumatic Eyes: PERRL, conjunctiva without injection ENT: Mucous membrane moist NECK: Supple without lymphadenopathy LUNGS: Bilateral wheezes, tachypnea, increased work of breathing with accessory muscle use. CV: Sinus tachycardia ABDOMEN: Soft, nontender in all quadrants EXTREMITY: Normal ROM, no lower extremity swellings, no mi sign SKIN: No rash or erythema NEURO: Awake and alert. No focal motor deficits. PSYCH: Normal mood and affect. Course Vital Signs: Vital signs: Vital Signs Temperature 99.2 F 05/22/21 19:00 Pulse Rate 90 05/22/21 22:00 Respiratory Rate 20 H 05/22/21 19:34 Blood Pressure 119/65 05/22/21 19:00 Pulse Oximetry 95 05/22/21 19:34 MDM - General Adult MDM Narrative: Medical decision making narrative: [71]yo in respiratory distress from moderate exacerbation of COPD. On exam, noted to be tachypneic with bilateral wheezes and mild accessory muscle use. Workup: CBC, BMP XR Chest, Troponin, EKG, ABG, BNP Intervention: Prednisone 60 mg PO. Albuterol 2.5-5mg q20min x3 OR 15mg/hr. Ipratropium 0.5mg x1. BIPAP for respiratory support if significant increased work of breathing ECG: Nonischemic XR Chest: no findings of focal consolidations Based on the history, exam, and workup I don?t suspect any other emergent cause of this presentation, such as pneumonia, acute coronary syndrome, congestive heart failure, pulmonary embolism, or pneumothorax. [3:47] On reassessment, the patient received prednisone 60 mg PO. Albuterol 2.5- 5mg q20min x3 OR 15mg/hr. Ipratropium 0.5mg x3. After treatment, pt continues to report increased work of breathing and respiratory effort. Based on his clinical status, the patient was placed on BIPAP for respiratory support. Patient was observed in the emergency room for 2 hours and continued to have good respiratory effort. Patient is able to speak full sentences with the support of the BIPAP machine and is tolerating the device comfortably without any signs of distress. As such, I think he would benefit from being on the BIPAP and monitored in a controlled setting and serial clinical reassessment. Patient is admitted to the step-down for continued monitoring on BIPAP Disposition: admission Lab Data: Labs: Lab Results 05/21/21 05/21/21 05/21/21 13:35 13:35 13:35 WBC 7.4 10^3/uL 10^3/ uL (4.0-10.0) RBC 4.46 10^6/uL 10^6 /uL (4.1-5.3) Hgb 12.5 g/dL g/dL (11.7-16.6) Hct 42.0 % % (42.0-52.0) MCV 94.2 fl H fl (80-94) MCH 28.0 pg pg (28.0-34.0) MCHC 29.8 g/dL L g/dL (30.0-36.0) RDW 12.5 % % (12.1-15.1) Plt Count 157 10^3/cmm 10^3 /cmm (130-400) MPV 10.4 fL fL (7.4-10.4) Neut % (Auto) 81.2 % % Lymph % (Auto) 9.6 % % [place] % (Auto) 7.3 % % Eos % (Auto) 0.8 % % Baso % (Auto) 0.4 % % Neut # (Auto) 6.01 10^3/uL 10^3 /uL (1.8-7.7) Lymph # (Auto) 0.7 10^3/uL L 10^ 3/uL (0.8-4.8) [place] # (Auto) 0.5 10^3/uL 10^3/ uL (0.2-0.9) Eos # (Auto) 0.1 10^3/uL 10^3/ uL (0.0-0.8) Baso # (Auto) 0.0 10^3/uL 10^3/ uL (0.0-0.1) Nucleated RBC % (a uto) 0 % % Nucleated RBCs # 0.0 /100WBC /100W BC D-Dimer Sodium 139 mmol/L mmol/L (136-145) Potassium 5.0 mmol/L mmol/L (3.5-5.1) Chloride 94 mmol/L L mmol/ L (98-107) Carbon Dioxide 40 mmol/L H mmol/ L (22-29) Anion Gap 10.0 (5-19) BUN 9 mg/dL mg/dL (8-23) Creatinine 0.5 mg/dL L mg/dL (0.7-1.2) GFR Calculation Not Reportable Glucose 98 mg/dL mg/dL (65-115) Calculated Osmolal ity 287 mOsm/kg mOsm/ kg (285-295) Calcium 9.4 mg/dL mg/dL (8.5-10.5) Troponin T Baselin e 18 ng/L H ng/L (0-15) Troponin T 120 Min algaaciq Delta Troponin T NT-Pro-B Natriuret Pep 116 pg/mL pg/mL (0-125) Nasal/Oral COVID-1 9 PCR SARS-CoV-2 Ag (Rap id) 05/21/21 05/21/21 05/21/21 13:35 14:10 14:10 WBC RBC Hgb Hct MCV MCH MCHC RDW Plt Count MPV Neut % (Auto) Lymph % (Auto) [place] % (Auto) Eos % (Auto) Baso % (Auto) Neut # (Auto) Lymph # (Auto) [place] # (Auto) Eos # (Auto) Baso # (Auto) Nucleated RBC % (a uto) Nucleated RBCs # D-Dimer 0.68 ug/mIFEU H u g/mIFEU (0-0.59) Sodium Potassium Chloride Carbon Dioxide Anion Gap BUN Creatinine GFR Calculation Glucose Calculated Osmolal ity Calcium Troponin T Baselin e Troponin T 120 Min algaaciq Delta Troponin T NT-Pro-B Natriuret Pep Nasal/Oral COVID-1 9 PCR Not detected SARS-CoV-2 Ag (Rap id) Negative (Negative) 05/21/21 15:40 WBC RBC Hgb Hct MCV MCH MCHC RDW Plt Count MPV Neut % (Auto) Lymph % (Auto) [place] % (Auto) Eos % (Auto) Baso % (Auto) Neut # (Auto) Lymph # (Auto) [place] # (Auto) Eos # (Auto) Baso # (Auto) Nucleated RBC % (a uto) Nucleated RBCs # D-Dimer Sodium Potassium Chloride Carbon Dioxide Anion Gap BUN Creatinine GFR Calculation Glucose Calculated Osmolal ity Calcium Troponin T Baselin e Troponin T 120 Min algaaciq 17.72 ng/L H ng/L (0-15) Delta Troponin T -0.28 ABS# L ABS# (0-10) NT-Pro-B Natriuret Pep Nasal/Oral COVID-1 9 PCR SARS-CoV-2 Ag (Rap id) Discharge Plan Discharge Patient Disposition: Admitted As Inpatient Admit Provider: Josemanuel Hernadez Condition: Stable Coding Level of Care Code ED Quality Assurance Lead for Garth Howard
--- NOTE | 2021-05-21 15:39 | ECG_ITS ---
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 Measurements Intervals [place] Rate: 82 P: TX: QRS: 63 QRSD: 93 T: 52 QT: 349 QTc: 408 Interpretive Statements SUPRAVENTRICULAR RHYTHM POSSIBLE RIGHT VENTRICULAR CONDUCTION DELAY [RSR (QR) IN V1/V2] ABNORMAL RHYTHM ECG Compared to ECG 05/21/2021 13:33:59 Supraventricular rhythm now present Sinus tachycardia no longer present Electronically Signed On 05-29-2021 17:18:32 CDT by Helio Pimentel M.D. [id number]
--- NOTE | 2021-05-21 16:04 | PC.RESP ---
Therapist called by ER nurse stated that they had a bed and was moving patient. Therapist told ER nurse that patient can go on a NC. Nurse brought patient to the floor and patient was sating 77% on 4LPM NC. Nurse left patient in room by himself. ER therapist seen ER nurse heading back down to ER with bed and nurse stated, patient is sating 77% and isnt doing so well. Therapist got to room and bipap was placed on patient.
[2021-05-21 16:06] LABS: Troponin 5 2HR 17.72 ng/L (0-15)
[2021-05-21 16:15] LABS: Troponin 5 2HR Delta -0.28 ABS# (0-10)
--- NOTE | 2021-05-21 16:22 | P.HP_ITS ---
Providers/Chief Complaint Admitting Physician: Josemanuel Hernadez Primary Care Provider: Gian Stacy, FOOD CONSULTANT-C Chief Complaint: LOW O2 History of Present Illness Pleasant 71-year-old gentleman with history of COPD, pulmonary hypertension, former smoker, chronically on 3-4 L of oxygen, recently started on BiPAP support as well reports is doing chronically short of breath for long time, but in the last 3 days has been feeling worse, with dry cough. Denies fever or chills. Lives with his girlfriend who has been well. Reports is completed COVID-19 vaccination with Moderna. Reports history of CAD, stenting, denies any recent chest pain pressure. Reports some mild chronic bilateral lower extremity edema.. NT proBNP is 116. He is usually active, reports he rides a motorcycle with his oxygen. Chest x-ray was extensive bilateral chronic pulmonary changes with signs of bu llous emphysema and hyperinflation. Prominent main pulmonary arteries suspicious of pulmonary hypertension. In ER he received breathing treatment with DuoNeb, injection of Solu-Medrol. Names his girlfriend and her stepdaughter as surrogate decision-maker is in case he could not make decisions on his own. Review of Systems Const: Denies: fever(s), body aches or malaise Eyes: Denies: change in vision or eye redness ENMT: Denies: throat pain, oral sores or ear or mastoid pain Card: Denies: chest pain, edema, pre-syncope or dyspnea on exertion Resp: Reports: dyspnea and non-productive cough; Denies: productive cough, change in phlegm color, hemoptysis or chest congestion GI: Denies: abdominal pain, nausea, vomiting, diarrhea, constipation, hematochezia or melena : Denies: flank pain, difficulty urinating, urinary frequency or hematuria Musc: Denies: back pain, joint swelling or joint redness Skin/Breast: Denies: rash, sores or new lesions Neuro: Denies: headache(s), numbness in extremities, weakness in extremities, dizziness, confusion or seizure-like activity Endo: Denies: polyuria or polydipsia [place]/Lymph: Denies: easy bleeding or purpura All/Imm: Denies: urticaria, throat swelling or tongue swelling Medications/Allergies Home Medications Medication Instructions Recorded Confirmed Last Taken Type albuterol sulfate 90 mcg/actuation 2 inh INHALATION QID PRN #18 gm 10/14/19 05/21/21 Unknown Rx aerosol inhaler cilostazol 50 mg tablet 50 mg PO BID tab 04/04/20 05/21/21 05/20/21 History clopidogrel 75 mg tablet 75 mg PO QAM tab 10/23/20 05/21/21 05/20/21 History hydromorphone 2 mg tablet 2 mg PO TID tab 10/23/20 05/21/21 05/21/21 08:00 History losartan 50 mg tablet 50 mg PO QAM 10/23/20 05/21/21 05/20/21 History morphine 15 mg tablet,extended 15 mg PO Q12H tab 10/23/20 05/21/21 05/20/21 History release tamsulosin 0.4 mg capsule 0.4 mg PO QAM cap 10/23/20 05/21/21 05/20/21 History albuterol sulfate 2.5 mg INHALATION Q4H PRN #300 ml 11/12/20 05/21/21 Unknown Rx lorazepam 1 mg tablet 1 mg PO BID PRN 04/21/21 05/21/21 Unknown History ambulatory ventilator #1 ea 04/22/21 05/21/21 Unknown Rx furosemide 20 mg tablet 20 - 40 mg PO DAILY PRN #135 tab 04/29/21 05/21/21 Unknown Rx Crestor 5 mg PO QAM 05/21/21 05/21/21 05/20/21 History aspirin 325 mg PO QAM 05/21/21 05/21/21 05/20/21 History [id number] 1 tab PO DAILY 05/21/21 05/21/21 Unknown History [Markus Multivitamin For Men] omeprazole 20 mg PO DAILY 05/21/21 05/21/21 Unknown History Allergies Allergy/AdvReac Type Severity Reaction Status Date / Time erythromycin base Allergy Unknown Unknown Verified 05/21/21 15:36 PFSH Acute PFSH: Medical History (Updated 05/21/21 @ 17:08 by Josemanuel Hernadez MD) BMI 24.0-24.9, adult CAD (coronary artery disease) Chronic respiratory failure COPD (chronic obstructive pulmonary disease) with emphysema Essential (primary) hypertension Neurogenic thoracic outlet syndrome Surgical History History of carotid angioplasty History of vasectomy Family History Other Cancer FH: CVA (cerebrovascular accident) Hypertension Social History (Updated 05/21/21 @ 17:12 by Josemanuel Hernadez MD) Smoking and tobacco status: former smoker Second hand smoke exposure: No Smoking risk assessment/counseling performed?: No Alcohol intake: never Desire information about alcohol rehabilitation?: No Counseling given: No Substance/Drug Use: never Desire information about substance/drug rehabilitation?: No Counseling given: No Adopted: No Caregiver/support person: No Lives independently: Yes Household members: significant other Housing: House Marital status: / Number of children: 2 service: Yes branch: [employer] Current occupational status: retired Current occupational exposures/hazards: No History of recent travel: No Current gender identity: Male Vitals/I&O/Wt Last Vital Signs Temp 97.8 F 05/21/21 16:12 Pulse 76 05/21/21 16:00 Resp 20 H 05/21/21 16:00 BP 152/87 05/21/21 16:00 Pulse Ox 90 05/21/21 16:00 Weight last 48 hrs Weight 79.832 kg Physical Exam Const: COMMON NORMALS: no acute distress and patient oriented x3 GENERAL APPEARANCE: cooperative ORIENTATION/CONSCIOUSNESS: Yes awake OTHER: BiPAP HENMT: COMMON NORMALS: oropharynx normal Neck/C-Spine: COMMON NORMALS: no JVD Resp: COMMON NORMALS: normal respiratory effort AUSCULTATION: diminished lung sounds Cardio: COMMON NORMALS: no JVD, regular rhythm, S1 normal heart sound present, S2 normal heart sound present and No murmurs present (Cardio) RHYTHM: regular rhythm HEART SOUNDS: S1 normal heart sound present and S2 normal heart sound present GI: COMMON NORMALS: Normal to inspection, nondistended, normoactive bowel sounds present, Soft to palpation and non-tender PALPATION: Yes Soft to palpation Extremity: COMMON NORMALS: no joint enlargement and no pedal edema Neuro: COMMON NORMALS: patient oriented x3 and moves all extremities Skin: COMMON NORMALS: no rashes or lesions noted GENERAL SKIN EXAM: no rashes or lesions noted Data : 05/21/21 13:35 05/21/21 13:35 A&P Assessment and plan (1) Acute and chronic respiratory failure: Spiriva, Advair, albuterol as needed, sputum culture if can provide. Fo llow-up on COVID-19 PCR. Continue Solu-Medrol. Currently continue BiPAP. Oxygen support. COPD exacerbation, but currently not producing sputum. For now hold off antibiotic. He states will let us know if starts producing phlegm. Status: Acute (2) COPD exacerbation: Chronically on 3-4 L of oxygen. Recently started on BiPAP. Does not follow with pulmonology in clinic. Status: Acute Additional A&P Information CAD, status post stenting: Aspirin, Plavix, is not on dual yung. Reports he is taking a statin. HTN Chronic pain on chronic opioids Chronic lower extremity edema BPH Attestations Medical Necessity Statement*: Place in observation for assessment management of acute on chronic respiratory failure requiring additional BiPAP support with COPD this admission. Coding Level of Care Code Acute Drafter Apprentice for Garth Howard Diagnoses Acute and chronic respiratory failure J96.20 COPD exacerbation J44.1
[2021-05-21 17:22] LABS: D Dimer 0.68 ug/mIFEU (0-0.59)
[2021-05-21] MEDS: cilostazol 100 mg Tablet 50 MG PO (17:56)
[2021-05-21] MEDS: morphine ER (12 HR) 15 mg Tablet PO (17:56)
[2021-05-21] MEDS: enoxaparin 40 mg/0.4 mL Syringe SUBCUT (17:56)
--- NOTE | 2021-05-21 19:39 | ECG_ITS ---
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 Measurements Intervals [place] Rate: 76 P: 44 [place]: 137 QRS: 63 QRSD: 87 T: 48 QT: 351 QTc: 396 Interpretive Statements SINUS RHYTHM POSSIBLE RIGHT VENTRICULAR CONDUCTION DELAY [RSR (QR) IN V1/V2] Compared to ECG 05/21/2021 13:33:59 Sinus tachycardia no longer present Electronically Signed On 05-22-2021 1:28:39 CDT by Wilbur Sandy M.D. [email or web address].[email or web address]/[id number]
[2021-05-21 20:20] LABS: Troponin 5 6HR 15.57 ng/L (0-15)
[2021-05-21 20:22] LABS: Troponin 5 6HR Delta -2.43 ng/L (0-12)
[2021-05-22] VITALS (17 sets, daily range): BP systolic 119–154; BP diastolic 65–82; PULSE 68–102; RESP 12–22; TEMP 36.6–37.3; O2SAT 91–97
[2021-05-22] MEDS: atorvastatin 40 mg Tablet 20 MG PO (05:27)
[2021-05-22] MEDS: tamsulosin 0.4 mg Capsule PO (05:27)
[2021-05-22] MEDS: clopidogrel 75 mg Tablet PO (05:28)
[2021-05-22] MEDS: aspirin 81 mg EC Tablet PO (05:28)
[2021-05-22] MEDS: losartan 50 mg Tablet PO (05:28)
[2021-05-22] MEDS: morphine ER (12 HR) 15 mg Tablet PO ×2 (05:28→17:45)
[2021-05-22 05:42] LABS: Hematocrit 40.4 % (42.0-52.0); Hemoglobin 12.1 g/dL (11.7-16.6); Lymphocytes # 0.4 10^3/uL (0.8-4.8); Lymphocytes % 9.3 %; Mean Corpuscular Hemoglobin 27.9 pg (28.0-34.0); Mean Corpuscular Volume 93.1 fl (80-94); Mean Platelet Volume 10.5 fL (7.4-10.4); Neutrophils # 3.65 10^3/uL (1.8-7.7); Nucleated Red Blood Cells % 0 %; Platelet Count 182 10^3/cmm (130-400); Red Blood Count 4.34 10^6/uL (4.1-5.3); Red Cell Distribution Width 12.5 % (12.1-15.1); White Blood Count 4.1 10^3/uL (4.0-10.0)
[2021-05-22 06:07] LABS: D Dimer 0.66 ug/mIFEU (0-0.59)
[2021-05-22 06:23] LABS: Alanine Aminotransferase 11 U/L (0-41); Albumin Level 3.7 g/dL (3.5-5.2); Alkaline Phosphatase 80 IU/L (40-130); Anion Gap 9.1 (5-19); Aspartate Amino Transferase 13 U/L (0-40); Blood Urea Nitrogen 15 mg/dL (8-23); Calcium 9.5 mg/dL (8.5-10.5); Carbon Dioxide 38 mmol/L (22-29); Chloride 95 mmol/L (98-107); Globulin 2.7 g/dL (1.3-4.6); Glucose 142 mg/dL (65-115); Osmolality Calculated 287 mOsm/kg (285-295); Potassium 5.1 mmol/L (3.5-5.1); Sodium 137 mmol/L (136-145); Total Bilirubin 1.4 mg/dL (0.15-1.2); Total Protein 6.4 g/dL (6.6-8.7)
[2021-05-22] MEDS: FUROsemide 20 mg Tablet PO (08:12)
[2021-05-22] MEDS: pantoprazole DR 40 mg Tablet PO (08:12)
[2021-05-22] MEDS: cilostazol 100 mg Tablet 50 MG PO ×2 (08:12→17:45)
[2021-05-22] MEDS: albuterol 8 gm MDI 1 PUFF INHALATION ×2 (08:29→13:35)
--- NOTE | 2021-05-22 10:44 | PC.CHAP ---
Pastoral Care Encounter/Spiritual Assessment Type of Contact [] Declined medical research tech visit [] Patient/Family/Request visit [] Outpatient visit [] Follow-up visit [] Physician referral [] Code/Alert [] Routine visit [] Staff referral [] Actively dying [] Patient sleeping [] Family support [] [] Out of room [] Palliative care [] [] Receiving care in room [] Pre-surgical visit [] Trauma [] Long length of stay [] ICU visit [x] Other: Isolation Relational/Emotional Strength [] Patient feels connected with others/family/visitors/staff [] Distress [] Loneliness/isolation [] Abandonment Spirituality of Patient [] Person of Lauren [] Attends Catholic of their Lauren [] Believes in Prayer [] Reads Bible or Uatsdin materials [] There are Spiritual issues to be addressed Machine Deicer Element Winder Interventions [] Prayer [] Active listening [] Non-anxious presence [] Spiritual/emotional support [] Crisis/trauma care [] Spiritual counseling [] Bereavement support [] Provided bereavement packet [] Provided Bible/devotional materials [] Provided toy/stuffed animal, coloring book to patient or family member [] Provided Communion [] Anointing/Arab [] Salvation [] Completed spiritual assessment [] Other: Impact on Illness or Injury [] Angry [] Fearful [] Anxious [] Often cries [] Exhaustion [] Unable to work [] Unable to attend taoist [] Unable to walk/stand [] Unable to read [] Unable to drive [] Unable to eat/drink [] Unable to sleep [] Unable to be with family [] Patient intubated [] Other: Summary Isolation Time spent with patient 5 mins
--- NOTE | 2021-05-22 11:16 | XR_ITS ---
WS: [id number] Exam: XR chest 1V portable [id number] Date/Time of Exam: 05/22/2021 11:19 AM Reason For Exam: Hypoxia Comparison 05/21/2021. The lungs are hyperinflated. Extensive changes of fibrosis and bullous emphysema noted. Chronic tuttle es in the bilateral midlung zones. No obvious acute infiltrate. Cardiomediastinal silhouette is unrem arkable. No pneumothorax. No change since previous exam. Again noted are prominent main pulmonary art eries. XR/XR chest 1V portable [id number] IMPRESSION: 1. Extensive bilateral chronic pulmonary changes with the bullous emphysema and hyperinflation. 2. No acute process is suspected. No change.
[2021-05-22 14:14] LABS: Coronavirus Test Green County Not Detected
[2021-05-22] MEDS: enoxaparin 40 mg/0.4 mL Syringe SUBCUT (17:46)
--- NOTE | 2021-05-22 20:14 | P.PN_ITS ---
Subjective Subjective: Interval history: He overall feels better. Had to be switched to high flow cannula due to desaturating while eating on 6 L. He requests to advance diet to regular consistency. Denies chest pain. No sputum production. Dry cough. Vitals/I&O/Wt Last Vital Signs Temp 99.2 F 05/22/21 19:00 Pulse 81 05/22/21 19:00 Resp 17 05/22/21 19:00 BP 119/65 05/22/21 19:00 Pulse Ox 91 05/22/21 19:00 05/22/21 05/22/21 05/22/21 06:59 14:59 22:59 Intake Total 100 / 340 236 / 236 Output Total 650 / 900 250 / 250 Balance -550 / -560 - Weight last 48 hrs Weight 79.379 kg Weight 79.832 kg Physical Exam Const: COMMON NORMALS: no acute distress and patient oriented x3 GENERAL APPEARANCE: cooperative ORIENTATION/CONSCIOUSNESS: Yes awake OTHER: High flow cannula HENMT: COMMON NORMALS: oropharynx normal Neck/C-Spine: COMMON NORMALS: no JVD Resp: COMMON NORMALS: normal respiratory effort AUSCULTATION: no crackles, no rhonchi and diminished lung sounds (Mild improvement in air entry) Cardio: COMMON NORMALS: no JVD, regular rhythm, S1 normal heart sound present, S2 normal heart sound present and No murmurs present (Cardio) RHYTHM: regular rhythm HEART SOUNDS: S1 normal heart sound present and S2 normal heart sound present GI: COMMON NORMALS: Normal to inspection, nondistended, normoactive bowel sounds present, Soft to palpation and non-tender PALPATION: Yes Soft to palpation Extremity: COMMON NORMALS: no joint enlargement and no pedal edema Neuro: COMMON NORMALS: patient oriented x3 and moves all extremities Skin: COMMON NORMALS: no rashes or lesions noted GENERAL SKIN EXAM: no rash es or lesions noted Data : 05/22/21 04:39 05/22/21 04:39 A&P Assessment and plan (1) Acute and chronic respiratory failure: Clinically doing slightly better. Coming off BiPAP. Acute on chronic hypoxic respiratory failure does require high flow cannula due to hypoxia despite 6 L. Dry cough. No sputum sample so far. Continue steroid, as he is not producing cough without obvious pneumonia, currently not on antibiotics. Will request for a VQ scan given mildly elevated D-dimer. Spiriva, Advair, albuterol as needed, sputum culture if can provide. Negative COVID-19 PCR. Continue Solu-Medrol. Oxygen support. COPD exacerbation, but currently not producing sputum. For now hold off antibiotic. He states will let us know if starts producing phlegm. Status: Acute (2) COPD exacerbation: Chronically on 3-4 L of oxygen. Recently started on BiPAP. Does not follow with pulmonology in clinic. Status: Acute Additional A&P Information CAD, status post stenting: Aspirin, Plavix, is not on dual yung. Reports he is taking a statin. HTN Chronic pain on chronic opioids Chronic lower extremity edema BPH Attestations Medical Necessity Statement*: More than 2 midnights admission required for COPD exacerbation with acute on chronic hypoxic respiratory failure. Coding Level of Care Code Acute Naval Gunfire Liaison Officer for Garth Howard Diagnoses Acute and chronic respiratory failure J96.20 COPD exacerbation J44.1
[2021-05-23] VITALS (18 sets, daily range): BP systolic 136–160; BP diastolic 75–90; PULSE 65–114; RESP 12–27; TEMP 36.6–37.1; O2SAT 91–96
[2021-05-23 04:04] LABS: Hematocrit 37.8 % (42.0-52.0); Hemoglobin 11.4 g/dL (11.7-16.6); Lymphocytes # 0.5 10^3/uL (0.8-4.8); Lymphocytes % 6.7 %; Mean Corpuscular HGB Conc 30.2 g/dL (30.0-36.0); Mean Corpuscular Hemoglobin 27.7 pg (28.0-34.0); Mean Platelet Volume 10.7 fL (7.4-10.4); Monocytes # 0.3 10^3/uL (0.2-0.9); Monocytes % 3.3 %; Neutrophils # 6.81 10^3/uL (1.8-7.7); Neutrophils % 89.5 %; Nucleated Red Blood Cells % 0 %; Platelet Count 167 10^3/cmm (130-400); Red Blood Count 4.11 10^6/uL (4.1-5.3); Red Cell Distribution Width 12.8 % (12.1-15.1); White Blood Count 7.6 10^3/uL (4.0-10.0)
[2021-05-23 04:24] LABS: Alanine Aminotransferase 10 U/L (0-41); Albumin Level 3.4 g/dL (3.5-5.2); Alkaline Phosphatase 71 IU/L (40-130); Anion Gap 6.8 (5-19); Aspartate Amino Transferase 14 U/L (0-40); Blood Urea Nitrogen 19 mg/dL (8-23); Calcium 9.3 mg/dL (8.5-10.5); Carbon Dioxide 40 mmol/L (22-29); Chloride 95 mmol/L (98-107); Globulin 2.8 g/dL (1.3-4.6); Glucose 179 mg/dL (65-115); Osmolality Calculated 291 mOsm/kg (285-295); Potassium 4.8 mmol/L (3.5-5.1); Sodium 137 mmol/L (136-145); Total Bilirubin 0.9 mg/dL (0.15-1.2); Total Protein 6.2 g/dL (6.6-8.7)
[2021-05-23] MEDS: tamsulosin 0.4 mg Capsule PO (05:39)
[2021-05-23] MEDS: losartan 50 mg Tablet PO (05:39)
[2021-05-23] MEDS: clopidogrel 75 mg Tablet PO (05:39)
[2021-05-23] MEDS: aspirin 81 mg EC Tablet PO (05:39)
[2021-05-23] MEDS: atorvastatin 40 mg Tablet 20 MG PO (05:40)
[2021-05-23] MEDS: morphine ER (12 HR) 15 mg Tablet PO ×2 (05:40→20:57)
[2021-05-23] MEDS: FUROsemide 20 mg Tablet PO (08:35)
[2021-05-23] MEDS: pantoprazole DR 40 mg Tablet PO (08:35)
[2021-05-23] MEDS: cilostazol 100 mg Tablet 50 MG PO ×2 (08:36→17:37)
[2021-05-23] MEDS: albuterol 8 gm MDI 1 PUFF INHALATION ×3 (09:11→19:27)
--- NOTE | 2021-05-23 09:52 | PC.CHAP ---
Pastoral Care Encounter/Spiritual Assessment Type of Contact [] Declined staffing clerk visit [] Patient/Family/Request visit [] Outpatient visit [] Follow-up visit [] Physician referral [] Code/Alert [x] Routine visit [] Staff referral [] Actively dying [] Patient sleeping [] Family support [] [] Out of room [] Palliative care [] [] Receiving care in room [] Pre-surgical visit [] Trauma [] Long length of stay [] ICU visit [] Other: Relational/Emotional Strength [] Patient feels connected with others/family/visitors/staff [] Distress [] Loneliness/isolation [] Abandonment Spirituality of Patient [] Person of Lauren [] Attends Judaism of their Lauren [] Believes in Prayer [] Reads Bible or Yazidism materials [] There are Spiritual issues to be addressed Sed Special Education Teacher Interventions [x] Prayer [] Active listening [] Non-anxious presence [] Spiritual/emotional support [] Crisis/trauma care [] Spiritual counseling [] Bereavement support [] Provided bereavement packet [] Provided Bible/devotional materials [] Provided toy/stuffed animal, coloring book to patient or family member [] Provided Communion [] Anointing/Marshall [] Salvation [x] Completed spiritual assessment [] Other: Impact on Illness or Injury [] Angry [] Fearful [] Anxious [] Often cries [] Exhaustion [] Unable to work [] Unable to attend tenriism [] Unable to walk/stand [] Unable to read [] Unable to drive [] Unable to eat/drink [] Unable to sleep [] Unable to be with family [] Patient intubated [] Other: Summary patient dressing/ preparing to go home... Time spent with patient
[2021-05-23] MEDS: enoxaparin 40 mg/0.4 mL Syringe SUBCUT (17:38)
--- NOTE | 2021-05-23 18:42 | NM_ITS ---
WS: [id number] NUCLEAR MEDICINE VENTILATION/PERFUSION LUNG SCAN HISTORY: hypoxia COMPARISON: 05/22/2021 chest radiograph TECHNIQUE: Ventilation: 32.0 mCi of Technetium 99 DTPA aerosol inhaled. Perfusion: 5.2 mCi of technetium 99m MAA IV. Patient has known severe emphysema with scarring resulting in an indeterminate probability for pulmon renita embolism. There is severe ventilatory abnormalities throughout both lungs. Very patchy heterogene ous distribution of the radionuclide. There are numerous matched defects on the perfusion study. With this amount of chronic lung disease small areas of suspected pulmonary emboli would be obscured. NM/NM pul vent and perfus* [id number] IMPRESSION: Indeterminate for pulmonary embolism. Patient has severe emphysema resulting in very limited evaluation for PE.
--- NOTE | 2021-05-23 19:55 | PC.NURSE ---
Shift Note Frequent safety and comfort rounds continue. Orders and/or nursing care completed as indicated. Patient monitored for response to intervention and treatment(s). Education provided includes COPD Exacerbation mgt. Patient and/or signs and displays sales representative verbalizes understanding. Will continue to monitor.
--- NOTE | 2021-05-23 23:27 | P.PN_ITS ---
Subjective Subjective: Interval history: He is feeling slightly better. Still desaturates easily. Denies chest pain. Not producing any phlegm. No nausea or vomiting. Vitals/I&O/Wt Last Vital Signs Temp 98.8 F 05/23/21 19:15 Pulse 103 H 05/23/21 22:00 Resp 18 05/23/21 20:56 BP 160/90 05/23/21 19:15 Pulse Ox 91 05/23/21 19:27 05/23/21 05/23/21 05/24/21 14:59 22:59 06:59 Intake Total 360 / 360 360 / 720 Output Total 200 / 200 Balance 160 / 160 360 / 520 Weight last 48 hrs Weight 79.379 kg Weight 79.379 kg Physical Exam Const: COMMON NORMALS: no acute distress and patient oriented x3 GENERAL APPEARANCE: cooperative ORIENTATION/CONSCIOUSNESS: Yes awake OTHER: High flow cannula HENMT: COMMON NORMALS: oropharynx normal Neck/C-Spine: COMMON NORMALS: no JVD Resp: COMMON NORMALS: normal respiratory effort AUSCULTATION: no crackles, no rhonchi, wheezes and diminished lung sounds (Mild improvement in air entry) Cardio: COMMON NORMALS: no JVD, regular rhythm, S1 normal heart sound present, S2 normal heart sound present and No murmurs present (Cardio) RHYTHM: regular rhythm HEART SOUNDS: S1 normal heart sound present and S2 normal heart sound present GI: COMMON NORMALS: Normal to inspection, nondistended, normoactive bowel sounds present, Soft to palpation and non-tender PALPATION: Yes Soft to palpation Extremity: COMMON NORMALS: no joint enlargement and no pedal edema Neuro: COMMON NORMALS: patient oriented x3 and moves all extremities Skin: COMMON NORMALS: no rashes or lesions noted GENERAL SKIN EXAM: no rashes or lesions noted Data : 05/23/21 03:32 05/23/21 03:32 A&P Assessment and plan (1) Acute and chronic respiratory failure: Gets hypoxic very easily. COVID-19 negative. Obtained VQ scan, indeterminant probability for PE. Limited evaluation due to emphysema. Continue anticoagulation for now. Will discuss with him consideration of CTA. Continue steroids, breathing treatments. Start nebulizer treatments. Very slow improvement. Persistent hypoxia, currently requiring 5 L of oxygen. Spiriva, Advair, albuterol as needed, sputum culture if can provide. Negative COVID-19 PCR. Continue Solu-Medrol. Oxygen support. COPD exacerbation, but currently not producing sputum. For now hold off an tibiotic. He states will let us know if starts producing phlegm. Status: Acute (2) COPD exacerbation: Chronically on 3-4 L of oxygen. Recently started on BiPAP. Does not follow with pulmonology in clinic. Status: Acute Additional A&P Information CAD, status post stenting: Aspirin, Plavix, is not on dual yung. Reports he is taking a statin. HTN Chronic pain on chronic opioids Chronic lower extremity edema BPH Attestations Medical Necessity Statement*: Continue admission for assessment management of COPD suspicion with worsened acute on chronic hypoxia. Additional assessment in setting of abnormal D-dimer. Coding Level of Care Code Acute Director Of Online Merchandising for Garth Howard Diagnoses Acute and chronic respiratory failure J96.20 COPD exacerbation J44.1
[2021-05-24] VITALS (13 sets, daily range): BP systolic 146–161; BP diastolic 75–93; PULSE 67–95; RESP 12–23; TEMP 36.4; O2SAT 86–96
[2021-05-24] MEDS: ipratropium-albuterol 3 mL Neb INHALATION ×3 (01:53→13:40)
--- NOTE | 2021-05-24 02:41 | PC.NURSE ---
Shift Note Frequent safety and comfort rounds continue. Orders and/or nursing care completed as indicated. Patient monitored for response to intervention and treatment(s). Education provided includes oxygen safety. Patient and/or assisted sales representative verbalized understanding. Will continue to monitor.
[2021-05-24] MEDS: tamsulosin 0.4 mg Capsule PO (04:42)
[2021-05-24] MEDS: clopidogrel 75 mg Tablet PO (04:42)
[2021-05-24] MEDS: aspirin 81 mg EC Tablet PO (04:42)
[2021-05-24] MEDS: losartan 50 mg Tablet PO (04:42)
[2021-05-24] MEDS: atorvastatin 40 mg Tablet 20 MG PO (04:43)
[2021-05-24 04:56] LABS: Basophils % 0.1 %; Hematocrit 36.9 % (42.0-52.0); Hemoglobin 11.4 g/dL (11.7-16.6); Lymphocytes # 0.4 10^3/uL (0.8-4.8); Lymphocytes % 4.1 %; Mean Corpuscular HGB Conc 30.9 g/dL (30.0-36.0); Mean Corpuscular Hemoglobin 27.8 pg (28.0-34.0); Mean Platelet Volume 10.7 fL (7.4-10.4); Monocytes # 0.2 10^3/uL (0.2-0.9); Monocytes % 2.5 %; Neutrophils # 7.96 10^3/uL (1.8-7.7); Neutrophils % 92.8 %; Nucleated Red Blood Cells % 0 %; Platelet Count 182 10^3/cmm (130-400); Red Cell Distribution Width 12.8 % (12.1-15.1); White Blood Count 8.6 10^3/uL (4.0-10.0)
[2021-05-24 05:31] LABS: Alanine Aminotransferase 12 U/L (0-41); Albumin Level 3.5 g/dL (3.5-5.2); Alkaline Phosphatase 64 IU/L (40-130); Anion Gap 9.5 (5-19); Aspartate Amino Transferase 17 U/L (0-40); Blood Urea Nitrogen 25 mg/dL (8-23); Calcium 9.2 mg/dL (8.5-10.5); Carbon Dioxide 37 mmol/L (22-29); Chloride 94 mmol/L (98-107); Globulin 2.4 g/dL (1.3-4.6); Glucose 125 mg/dL (65-115); Osmolality Calculated 288 mOsm/kg (285-295); Potassium 4.5 mmol/L (3.5-5.1); Sodium 136 mmol/L (136-145); Total Bilirubin 0.9 mg/dL (0.15-1.2); Total Protein 5.9 g/dL (6.6-8.7)
[2021-05-24] MEDS: FUROsemide 20 mg Tablet PO (09:01)
[2021-05-24] MEDS: pantoprazole DR 40 mg Tablet PO (09:01)
[2021-05-24] MEDS: cilostazol 100 mg Tablet 50 MG PO (09:01)
[2021-05-24] MEDS: morphine ER (12 HR) 15 mg Tablet PO (09:01)
--- NOTE | 2021-05-24 13:33 | CTR_ITS ---
PROCEDURE INFORMATION: Exam: CTA Chest With Contrast Exam date and time: 05/24/2021 1:33 PM Age: 71 years old Clinical indication: Abnormal findings; Abnormal diagnostic tests; Elevated d-dimer; Shortness of breath; Prior surgery; Surgery date: 6+ months; Surgery type: Lung, carotid, back; Patient HX: SOB w elv d-dimer; Additional info: Hypoxia, abnorm ddimer, uninformative vq, assess for pe TECHNIQUE: Imaging protocol: Computed tomographic angiography of the chest with contrast. 3D rendering (Not supervised by radiologist): MIP and/or 3D reconstructed images were created by the technologist. Radiation optimization: All CT scans at this facility use at least one of these dose optimization techniques: automated exposure control; mA and/or kV adjustment per patient size (includes targeted exams where dose is matched to clinical indication); or iterative reconstruction. Contrast material: OMNI 350; Contrast volume: 81 ml; Contrast route: INTRAVENOUS (IV); COMPARISON: CT angio chest PE protcl [id number] 04/06/2021 8:25 PM RADIATION DOSE METRICS: Total DLP (mGy-cm): 624.32 FINDINGS: Pulmonary arteries: There is enlargement of the main right and left pulmonary arteries, suggestive of pulmonary hypertension. No evidence of filling defect to suggest acute pulmonary embolus. Aorta: Unremarkable. No aortic aneurysm. No aortic dissection. Lungs: There is diffuse centrilobular and paraseptal emphysema with extensive bullous changes. No consolidation. No discrete nodule or mass identified. No pleural effusion or pneumothorax. Calcified pleural plaques noted on the right. Pleural spaces: See Lungs finding. Heart: Normal heart size. Coronary atherosclerotic calcifications seen. No pericardial effusion. Lymph nodes: Unremarkable. No enlarged lymph nodes. Kidneys and ureters: There is a 3.2 cm cyst in the right kidney. Stomach and bowel: There is diverticulosis without evidence of diverticulitis. Bones/joints: Degenerative changes of the spine seen. Soft tissues: Unremarkable. CT/CT angio chest PE protcl [id number] IMPRESSION: 1. No pulmonary embolus or other acute pathology in the chest. 2. Diffuse centrilobular and paraseptal emphysema with extensive bullous changes. COMMENTS: Consistent with the [employer]'s Incidental Findings Committee white paper (J Am Tres Radiol 2018): Any incidental renal lesion less than 1 cm or classified as too small to characterize, or any incidental cystic renal lesion characterized as simple-appearing, is likely benign. No follow-up imaging is recommended for these lesions per consensus recommendations based on imaging criteria. Radiation Dose CTDIVOL = (mGy): DLP = 624.32 (mGy-cm)
[2021-05-24 14:07] LABS: C Reactive Protein 1.2 mg/L (0.0-4.9)
[2021-05-24] MEDS: iohexol 350 mg/mL 100 mL Btl IV (14:25)
--- NOTE | 2021-05-24 15:31 | P.DS_ITS ---
Discharge Providers Date of Admission: 05/22/21 20:17 Date of Discharge: May 24, 2021 Attending Provider at Admission: Josemanuel Hernadez Attending Provider at Discharge: Josemanuel Hernadez Primary Care Provider: ANDREE Young Diagnoses at Discharge Discharge Diagnosis (1) Acute and chronic respiratory failure: Status: Acute (2) COPD exacerbation: Status: Acute Reason for Visit Reason for Visit: LOW O2 Hospital Course Hospital Course Very pleasant 71-year-old gentleman with recent admission for respiratory failure, with advanced COPD on chronic oxygen of about 4 L, pulmonary hypertension, recently set up with [employer] ventilator, although has been having some machine alarms which he is working with supplier to resolve, CAD status post stenting x1, left carotid artery stenosis, HTN, HLD, former smoker, was admitted after presenting with acute on chronic respiratory failure, requiring BiPAP support, subsequently weaning off gradually to 6 L of oxygen at rest. Was treated with Solu-Medrol as he reported dry hacking cough without phlegm production. CRP is not elevated. He gradually improved. Today came down to 5 L of oxygen at rest, 6 L with exertion on home O2 evaluation. He requested to be discharged home. COVID-19 PCR was assessed and was negative. He had completed vaccination series with mother now. Additional evaluation included VQ scan due to abnormal D-dimer, hypoxia, dry cough, but not helpful with indeterminate probability for PE. CT angiogram of the chest assessed and negative for PE. Diffuse centrilobular and paraseptal emphysema with extensive bullous changes. Given this is his second admission this year, as well as severity of symptoms and hypoxia, on discharge in addition to prednisone taper, he started on Anoro Ellipta, referred for follow-up with pulmonology. He is being set up with a larger oxygen machine. He and his significant other will be contacting [employer] supplier at soonest possible appointment to resolve any unexplained alarms. Physical Exam Const: COMMON NORMALS: no acute distress and patient oriented x3 GENERAL APPEARANCE: cooperative ORIENTATION/CONSCIOUSNESS: Yes awake OTHER: He reports he is feeling close to his usual self. Request for discharge. HENMT: COMMON NORMALS: oropharynx normal Neck/C-Spine: COMMON NORMALS: no JVD Resp: COMMON NORMALS: normal respiratory effort AUSCULTATION: no crackles, no rhonchi, wheezes (Significantly improved. Minimal wheeze on the left.) and diminished lung sounds (Continue to improve) Cardio: COMMON NORMALS: no JVD, regular rhythm, S1 normal heart sound present, S2 normal heart sound present and No murmurs present (Cardio) RHYTHM: regular rhythm HEART SOUNDS: S1 normal heart sound present and S2 normal heart sound present GI: COMMON NORMALS: Normal to inspection, nondistended, normoactive bowel sounds present, Soft to palpation and non-tender PALPATION: Yes Soft to palpation Extremity: COMMON NORMALS: no joint enlargement and no pedal edema Neuro: COMMON NORMALS: patient oriented x3 and moves all extremities Skin: COMMON NORMALS: no rashes or lesions noted GENERAL SKIN EXAM: no rashes or lesions noted Discharge Data Data Completed and Pending: Completed Studies During Hospitalization Category Date Time Status CT angio chest PE protcl [id number] Stat Cat Scan 05/24/21 13:33 Completed XR chest 1V ira ble [id number] Routine Exams 05/22/21 11:16 Completed XR chest 1V ira ble [id number] Stat Exams 05/21/21 13:39 Completed NM pul vent and p erfus* [id number] Routi ne Nuc Med 05/23/21 18:42 Completed Pending at discharge Category Date Time Status Complete Blood Co unt w/Auto AM LABS Lab 05/25/21 04:00 Ordered Comprehensive Met abolic Panel AM LA BS Lab 05/25/21 04:00 Ordered Sputum Culture an d Gram Stain Routi ne Lab 05/21/21 16:24 Uncollected Labs from last 24 hours 05/24/21 05/24/21 05/24/21 03:59 03:59 03:59 WBC 8.6 RBC 4.10 Hgb 11.4 L Hct 36.9 L MCV 90.0 MCH 27.8 L MCHC 30.9 RDW 12.8 Plt Count 182 MPV 10.7 H Neut % (Auto) 92.8 Lymph % (Auto) 4.1 Hutchinson % (Auto) 2.5 Eos % (Auto) 0.0 Baso % (Auto) 0.1 Neut # (Auto) 7.96 H Lymph # (Auto) 0.4 L Hutchinson # (Auto) 0.2 Eos # (Auto) 0.0 Baso # (Auto) 0.0 Nucleated RBC % (a uto) 0 Nucleated RBCs # 0.0 Sodium 136 Potassium 4.5 Chloride 94 L Carbon Dioxide 37 H Anion Gap 9.5 BUN 25 H Creatinine 0.7 GFR Calculation Not Reportable Glucose 125 H Calculated Osmolal ity 288 Calcium 9.2 Total Bilirubin 0.9 AST 17 ALT 12 Alkaline Phosphata se 64 C-Reactive Protein 1.2 Total Protein 5.9 L Albumin 3.5 Globulin 2.4 Vitals: Last Vital Signs Temp 97.6 F 05/24/21 03:53 Pulse 88 05/24/21 13:40 Resp 20 H 05/24/21 13:40 BP 146/82 05/24/21 04:42 Pulse Ox 86 L 05/24/21 13:42 Discharge Plan Discharge Patient Disposition: Home Condition: Stable Prescriptions: New prednisone 20 mg tablet See Rx Instructions .ROUTE .COMPLEX Qty: 20 RF: 0 Anoro Ellipta 62.5-25 mcg/actuation blister with device 1 inh inhalation DAILY Qty: 60 RF: 0 Continued losartan [Cozaar] 50 mg tablet 50 mg PO QAM RF: 0 lorazepam 1 mg tablet 1 mg PO BID PRN (Reason: Anxiety) RF: 0 (DME) ambulatory ventilator See Rx Instructions .Route .MEDSUPPLY Qty: 1 RF: 0 cilostazol 50 mg tablet 50 mg PO BID RF: 0 tamsulosin 0.4 mg capsule 0.4 mg PO QAM RF: 0 morphine 15 mg tablet extended release 15 mg PO Q12H RF: 0 hydromorphone 2 mg tablet 2 mg PO TID RF: 0 clopidogrel 75 mg tablet 75 mg PO QAM RF: 0 albuterol sulfate [Ventolin HFA] 90 mcg/actuation HFA aerosol inhaler 2 inh INHALATION QID PRN (Reason: shortness of breath or wheezing) Qty: 18 RF: 1 albuterol sulfate 2.5 mg /3 mL (0.083 %) solution for nebulization 2.5 mg INHALATION Q4H PRN (Reason: shortness of breath or wheezing) Qty: 300 RF: 11 Lasix 20 mg tablet 20 - 40 mg PO DAILY PRN (Reason: edema) Qty: 135 RF: 0 aspirin 325 mg Tablet 325 mg PO QAM RF: 0 omeprazole 20 mg Capsule,Delayed Release(Dr/Ec) 20 mg PO DAILY RF: 0 Markus Multivitamin For Men 200-175-250 mcg Tablet 1 tab PO DAILY RF: 0 Crestor 5 mg tablet 5 mg PO QAM RF: 0 Discharge Orders: Discharge Order (Routine); Ordered 05/24/21 Ordered By: Josemanuel Hernadez Other Ambulatory Orders: DME: Oxygen (Order) Location: None Selected Ordered By: Josemanuel Hernadez Referrals: Shakir Lopez MD [Physician] - 1 week ([facility] will contact to schedule an follow-up appointment in 1 week. If you haven't heard from them by Wednesday afternoon. Please call ) Gian Stacy FNP-C [Primary Care Provider] - 4-7 days ([facility] will contact you to schedule an follow-up appointment in 4 to 7 days. If youhaven't heard from them Wednesday. Please call ) Discharge Diet: Cardiac Discharge Activity: Oxygen as instructed Patient Instructions: Prednisone (By mouth), Umeclidinium/Vilanterol (By breathing) (Anoro Ellipta), COPD (Chronic Obstructive Pulmonary Disease) (GEN), COPD Stoplight, Opioid Safety Activity Restrictions/Additional Instructions: Please complete steroid taper. If you start having productive cough, please contact your doctor to discuss with consideration of an antibiotic course. Please target oxygen saturation 88-92%. Rest increase oxygen flow for saturations decreasing. If oxygen saturation persistently decreasing to 80% despite rest and increasing oxygen flow, please go to ER. Please follow-up with pulmonology for optimization of your advanced COPD. Work with them to help adjust your medications to reduce exacerbations. Please monitor your blood pressures at home closely. Your blood pressures were very elevated when you just came to the hospital. Continue blood pressure medications. Maintain cardiac, low-sodium diet. Work with your primary doctor to optimize control of hypertension. Continue follow-up with your primary doctor with regards to other chronic conditions including coronary disease, BPH, etc. Discharge Attestations Time Spent in Discharge Care*: greater than 30 min Status at Discharge: Cognitive status at discharge: cognitively intact , Behavioral status at discharge: cooperative , Quality Metrics Clinical Quality Measures During this hospital stay, did patient experience: None Coding Level of Care Code Acute Chg FW DC note Diagnoses Acute and chronic respiratory failure J96.20 COPD exacerbation J44.1
[2021-05-24] MEDS: LORazepam 1 mg Tablet PO (15:45)
--- NOTE | 2021-05-24 16:22 | PC.NURSE ---
Discharge Note Patient discharged to Home via private vehicle accompanied by spouse. Discharge instructions reviewed with patient and/or sales representative printing paper. Mobile pharmacy medications and/or prescriptions provided. Belongings/home medications returned.
--- NOTE | 2021-05-26 15:01 | PC.RESP ---
PULMONARY REHAB INFORMATION SENT TO PATIENT.
== END 2021-05-24 16:22 | disposition home or self-care (01) | DRG 189 ==
LOC: ER 15:25 → CSU 17:01
PROVIDERS: Admitting Provider Internal Medicine; Emergency Provider Emergency Medicine; PCP Nurse Practitioner; Visit Provider Internal Medicine
DX: J96.21 Acute and chronic respiratory failure with hypoxia (principal); J43.2 Centrilobular emphysema; I27.20 Pulmonary hypertension, unspecified; I25.10 Atherosclerotic heart disease of native coronary artery without angina pectoris; I10 Essential (primary) hypertension; E78.5 Hyperlipidemia, unspecified; R79.1 Abnormal coagulation profile; G89.29 Other chronic pain; R05.9 Cough, unspecified; R60.0 Localized edema; N40.0 Benign prostatic hyperplasia without lower urinary tract symptoms; G54.0 Brachial plexus disorders; Z99.81 Dependence on supplemental oxygen; Z87.891 Personal history of nicotine dependence; Z95.5 Presence of coronary angioplasty implant and graft; Z79.82 Long term (current) use of aspirin; Z79.02 Long term (current) use of antithrombotics/antiplatelets; Z99.89 Dependence on other enabling machines and devices; Z79.891 Long term (current) use of opiate analgesic
CPT/HCPCS: 36415; 71045; 71275; 78014; 80048; 80053; 83880; 84484; 85025; 85378; 86140; 87426; 87635; 93005; 94640; 94660; 94664; 96372; A9540; A9567; G0378; J1650; J2930; J3535; Q9967

== ENCOUNTER 2021-07-15 09:16 | Outpatient (CLI) | payer MEDICARE, SELFPAY ==
--- NOTE | 2021-07-15 09:29 | MR_ITS ---
WS: [id number] MRI LUMBAR SPINE NONCONTRAST TECHNIQUE: Sagittal T1, T2 and STIR imaging. Axial T1 and T2 imaging. CLINICAL INFORMATION: VERTEBROGENIC LOW BACK PAIN COMPARISON: None. FINDINGS: Mild lumbar curve. No acute compression. No high-grade central canal stenosis. L1-L2: Mild disc bulging with osteophytic ridging. Slight effacement of ventral thecal sac. Mild face t arthropathy. Spinal canal and foramen are patent. L2-L3: Mild disc bulging with osteophytic ridging. Impingement on the left subarticular recess and tr aversing left L3 nerve root. Mild central canal stenosis. Mild left foraminal narrowing. Mild facet a rthropathy. L3-L4: Mild disc bulging with mild central canal stenosis. Impingement traversing L4 nerve roots bila terally. Mild facet arthropathy. Tiny annular fissure. Small left greater than right foraminal protru sions with mild left greater than right foraminal narrowing. L4-L5: Mild disc bulging and osteophytic ridging. Mild central canal stenosis. Impingement traversing L5 nerve roots bilaterally. Mild right and no significant left foraminal narrowing. Mild facet arthr opathy. L5-S1: Mild disc osteophytic ridging. Mild facet arthropathy. Mild right foraminal narrowing. 3.5 cm right renal cyst. MR/MR lumbar spine wo con* [id number] IMPRESSION: 1. Mild lumbar curve. No acute compression. 2. Mild central canal stenosis L3-L4 and L4-L5. 3. Small left subarticular protrusion L2-3 impinges the traversing left L3 ner ve root in the subarticular recess. Mild left L2-3 foraminal narrowing. 4. Small left foraminal protrusion L3-4 with mild left foraminal narrowing. 5. Mild right L4-5 and right L5-S1 foraminal narrowing.
--- NOTE | 2021-07-15 09:46 | XR_ITS ---
WS: [id number] Exam: XR lumbar spine f/e only [id number] Date/Time of Exam: 07/15/2021 10:08 AM Reason For Exam: VERTEBROGENIC LOW BACK PAIN No obvious fracture identified. No flexion or extension instability. Degenerative vacuum disc at L5-S 1. Spondylosis and facet arthropathy at all levels. Limited range of motion in flexion and extension. XR/XR lumbar spine f/e only [id number] IMPRESSION: 1. No flexion or extension instability. Degenerative changes. Limited motion.
== END 2021-07-15 09:17 | disposition home or self-care (01) ==
PROVIDERS: PCP Nurse Practitioner; Visit Provider Nurse Practitioner
DX: M48.00 Spinal stenosis, site unspecified (principal); M51.26 Other intervertebral disc displacement, lumbar region
CPT/HCPCS: 72120; 72148

== ENCOUNTER → 2021-09-10 09:35 | Outpatient (BNVA) | payer MEDICARE, SELFPAY | PROVIDERS: PCP Nurse Practitioner; Visit Provider Internal Medicine Pulmonary Disease | DX: Z01.812 Encounter for preprocedural laboratory examination (principal); Z20.822 Contact with and (suspected) exposure to COVID-19 | CPT/HCPCS: 87635 ==

== ENCOUNTER 2021-09-16 10:30 | Outpatient (CLI) | payer MEDICARE, SELFPAY ==
--- NOTE | 2021-09-16 13:42 | PFTS_ITS ---
Date of Study:09/16/21 Date of Dictation: MECHANICS: Forced vital capacity (FVC) is reduced. Forced expiratory volume in one second (FEV1) is reduced. FEV1/FVC is reduced. FLOW VOLUME LOOP: Reduced flow at all lung volumes with significant scooping. LUNG VOLUMES: Total lung capacity (TLC) is reduced. Residual volume (RV) is normal. DIFFUSING CAPACITY FOR CARBON MONOXIDE: Severely reduced. INTERPRETATION: The postbronchodilator spirometry is consistent with very severe airflow obstruction. There is no significant postbronchodilator response. Lung volumes are consistent with restrictive lung disease. 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 Gas exchange (DLCO) is severely reduced. MTDD
== END 2021-09-16 10:31 | disposition home or self-care (01) ==
LOC: RT 10:33
PROVIDERS: PCP Nurse Practitioner; Visit Provider Internal Medicine Pulmonary Disease
DX: J43.9 Emphysema, unspecified (principal)
CPT/HCPCS: 94060; 94618; 94726; 94729; J7611

== ENCOUNTER → 2021-09-29 10:12 | Outpatient (BNVA) | payer MEDICARE, SELFPAY | PROVIDERS: PCP Nurse Practitioner; Visit Provider Internal Medicine Cardiovascular Disease | DX: R06.00 Dyspnea, unspecified (principal); R06.02 Shortness of breath; I50.33 Acute on chronic diastolic (congestive) heart failure; I25.10 Atherosclerotic heart disease of native coronary artery without angina pectoris; I73.9 Peripheral vascular disease, unspecified; J43.1 Panlobular emphysema; I25.118 Atherosclerotic heart disease of native coronary artery with other forms of angina pectoris; I65.29 Occlusion and stenosis of unspecified carotid artery; E78.5 Hyperlipidemia, unspecified | CPT/HCPCS: 99205 ==

== ENCOUNTER → 2021-11-24 14:39 | Outpatient (BNVA) | payer MEDICARE, SELFPAY | PROVIDERS: PCP Nurse Practitioner; Visit Provider Internal Medicine Cardiovascular Disease | DX: I25.118 Atherosclerotic heart disease of native coronary artery with other forms of angina pectoris (principal); I65.29 Occlusion and stenosis of unspecified carotid artery; E78.5 Hyperlipidemia, unspecified; I10 Essential (primary) hypertension; I73.9 Peripheral vascular disease, unspecified; J43.1 Panlobular emphysema; J96.21 Acute and chronic respiratory failure with hypoxia; J96.22 Acute and chronic respiratory failure with hypercapnia; Z87.891 Personal history of nicotine dependence | CPT/HCPCS: 99213; 99214 ==

== ENCOUNTER 2022-01-14 09:01 | Outpatient (CLI) | payer MEDICARE, SELFPAY ==
--- NOTE | 2022-01-14 09:15 | USCV_ITS ---
Brayden Lizama Age: 71 Gender: M : 1950 Exam Date: 01/14/2022 09:25 Ordering Phys: Wilbur Sandy MD ([email or web address]) Technologist: Exam Location: [facility] Indication: pad Risk Factors: Previous Vascular Surgery: RIGHT LEFT BP: 110.0 / 80.00 BP: 110.0/ 80.00 0 0 Waveform Velocity (cm/s) Velocity (cm/s) Waveform Monophasic 161.9 Iliac Prox 199.0 Biphasic Monophasic 147.5 Iliac Mid 132.7 Biphasic Monophasic 97.1 Iliac Distal 82.3 Biphasic Monophasic 84.5 TANDEM MILL OPERATOR 80.5 Biphasic Monophasic 72.0 SFA Prox 62.8 Biphasic Monophasic 53.8 SFA Mid 79.4 Biphasic Monophasic 46.1 SFA Dist 60.6 Biphasic Monophasic 73.5 POP 98.1 Biphasic Monophasic 22.0 RIG SUPERINTENDENT 50.7 Biphasic Monophasic 19.8 DPA 60.6 Biphasic 1.0 DAVID 1.0 FINDINGS Resting DAVID 1.0 on the right and left. Monophasic and continuous waveform in the iliac and femoral artery on the right side. Biphasic Doppler waveforms in the left side CONCLUSIONS 1. Abnormal Doppler waveforms on the right side, suggestive of collateral filling in the iliac and femoral arteries. 2. Possibly no significant arterial obstruction on the left side. 3. Normal resting ABIs bilaterally. Consider CTA or peripheral angiogram to better evaluate the peripheral arteries No similar previous studies are available for comparison Dr Wilbur Sandy MD [facility] (Electronically Signed) Final Date: 15 January 2022 21:44 S
== END 2022-01-14 09:02 | disposition home or self-care (01) ==
LOC: RAD 09:02
PROVIDERS: PCP Nurse Practitioner; Visit Provider Internal Medicine Cardiovascular Disease
DX: I73.9 Peripheral vascular disease, unspecified (principal); R93.89 Abnormal findings on diagnostic imaging of other specified body structures
CPT/HCPCS: 93925

== ENCOUNTER 2022-01-14 09:01 | Outpatient (CLI) | payer MEDICARE, SELFPAY ==
[2022-01-14 09:52] VITALS: BMI 23.7
--- NOTE | 2022-01-14 09:54 | NMCV_ITS ---
NM mike perf SPECT r/s* [id number] Brayden Lizama Age: 71 Gender: M : 1950 Exam Date: 01/14/2022 10:36 Ordering Phys: Wilbur Sandy MD ([email or web address]) Technologist: EMERITA Bowers Exam Location: [facility] Indications: SHORTNESS OF BREATH STRESS TEST [facility] IMAGE PROTOCOL Rest/Stress 1 Dobutamine Day Radiopharmaceutical Dose (mCi) Administration Site Administered by Rest: Tc-99m 10.6 IV EMERITA Maher Sestamibi Stress:Tc-99m 32.8 IV EMERITA Maher Sestamibi Rest: 14-Jan-2022 60 Discovery 630 Stress: 14-Jan-2022 15 Discovery 630 Radiopharmaceutical was injected at 85 % maximum heart rate. Supine position only as patient was unable to lay prone. SPECT RESULTS Technical Quality: Excellent Raw Data Analysis: Normal Image Corrections: No attenuation or motion correction applied Summed Stress Score: 8 Summed Rest Score: 11 Summed Difference Score: 0 PERFUSION FINDINGS Moderate area of moderately reduced uptake in the basal and mid anteroseptal, inferoseptal, apical inferior and LV apex. No significant reversibility was noted in these regions. FUNCTIONAL RESULTS (calculated via Gated SPECT) Stress Image LV EF (%): 77 Stress EDV (mL):66 TID: 0.72 Stress ESV (mL):15 FUNCTIONAL FINDINGS: Segmental wall motion analysis revealing no gross wall motion normalities IMPRESSIONS 1. Myocardial perfusion imaging revealing moderate area of persistent decreased tracer uptake in the mid anteroseptal, inferoseptal and apical segments with no significant reversibility. 2. Normal ejection fraction of 77%. 3. Segmental wall motion analysis revealing no gross wall motion abnormalities 4. Normal LV volume No similar previous studies are available for comparison Low probability for coronary ischemia, based on the above findings Dr Wilbur Sandy MD [facility] (Electronically Signed) Final Date: 14 January 2022 16:00 S
--- NOTE | 2022-01-14 09:54 | ECG_ITS ---
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 Interpretive Statements NAME OF STUDY: DOBUTAMINE SESTAMIBI STRESS TEST INDICATION: Atypical Chest Pain PROCEDURE: At the baseline, the blood pressure was 194/110 with a heart rate of 95. The electrocardiogram showed normal sinus rhythm with normal ST Ts. Heart rate of 95 bpm. The dobutamine was infused over a period of 6 minutes and 49 seconds. The maximum heart rate obtained was 140 (94 % of the maximum predicted heart rate). The blood pressure at that time was 175/91 mmHg. The patient did not have any chest pain or any significant electrocardiogram changes with the dobutamine infusion. The physical examination remained unchanged. No arrhythmias were seen on the monitor. During the recovery phase, the patient did not have any specific symptoms. The blood pressure at the end of the recovery phase was 150/96 with a heart rate of 99 per minute. CONCLUSION: 1. No significant EKG changes with the dobutamine infusion 2. No dobutamine induced chest pain or cardiac arrhythmia 3. Appropriate heart rate to dobutamine infusion. 4. Sestamibi/Sestamibi perfusion scan pending; see separate report. Electronically Signed On 01-16-2022 14:44:43 CDT by Wilbur Sandy M.D. [email or web address]
[2022-01-14] MEDS: DOBUTtamine 200 MG in sodium chloride 0.9% 34 ML 11.57 MG IV (12:02)
[2022-01-14] MEDS: atropine 0.1 mg/mL Syr 10 mL 0.5 MG IVP (12:09)
[2022-01-14] MEDS: metoprolol tartrate 1 mg/1 mL SDV 5 mL 5 MG IV (12:11)
[2022-01-14 12:20] VITALS: BP 158/76; PULSE 99
== END 2022-01-14 09:02 | disposition home or self-care (01) ==
LOC: CDL 09:02
PROVIDERS: PCP Nurse Practitioner; Visit Provider Internal Medicine Cardiovascular Disease
DX: R07.89 Other chest pain (principal); R06.02 Shortness of breath
CPT/HCPCS: 78452; 93017; A9500; J0461; J1250; J3490; J7050

== ENCOUNTER 2022-01-20 17:12 | Inpatient (IN) | payer MEDICARE, SELFPAY ==
[2022-01-20] VITALS (46 sets, daily range): BP systolic 110–150; BP diastolic 66–108; PULSE 72–92; RESP 9–28; TEMP 36.3–37.6; O2SAT 83–99; BMI 26.4
--- NOTE | 2022-01-20 17:14 | ECG_ITS ---
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 Measurements Intervals [place] Rate: 94 P: 72 LA: 137 QRS: 61 QRSD: 93 T: 46 QT: 337 QTc: 423 Interpretive Statements SINUS RHYTHM Compared to ECG 05/21/2021 16:47:28 No significant changes Electronically Signed On 01-20-2022 20:07:17 CDT by Wilbur Sandy M.D. [id number]
--- NOTE | 2022-01-20 17:14 | XRR_ITS ---
PROCEDURE INFORMATION: Exam: XR Chest Exam date and time: 01/20/2022 5:40 PM Age: 71 years old Clinical indication: Cough; Additional info: Dyspnea/cough TECHNIQUE: Imaging protocol: Radiologic exam of the chest. Views: 1 view. COMPARISON: CR XR chest 1V portable [id number] 05/22/2021 11:18 AM FINDINGS: Lungs: The lungs are emphysematous. Large bilateral bulla and scattered areas of scarring are again noted. No acute airspace process is detected. Pleural spaces: Unremarkable. No pleural effusion. No pneumothorax. Heart/Mediastinum: Unremarkable. No cardiomegaly. Vasculature: Proximal left subclavian artery stent is again noted. Bones/joints: Unremarkable. XR/XR chest 1V portable [id number] IMPRESSION: Pulmonary emphysema, large bilateral bulla and scattered areas of scarring are again noted. No acute abnormality is detected.
[2022-01-20 17:42] LABS: ABG PH Result 7.32 (7.35-7.45); Alveolar-Arterial Oxygen Gradi 13.8 mmHg (5-10); Arterial Blood Gas Hematocrit 40.5 % (42-52); Base Excess ABG 13.8 mmol/L (-2.0-2.0); Blood Gas Allen Test Pos; Blood Gas Operator Identificat AMH; Blood Gas Sample Site Radial, right; Blood Gas Sample Type Arterial; Carboxyhemoglobin 1.7 %THgb (0.4-20.1); HCO3 ABG 43.8 mmol/L (22-26); HGB O2 Sat 86.7 % (95-100); Ionized Calcium Level - ABG 1.3 mmol/L (1.1-1.4); Methemoglobin 0.9 % (0.4-1.5); Oxygen Device NC; Potassium Level - ABG 5.1 mmol/L (3.5-5.0); Total Hemoglobin 13.2 g/dL (14-18)
[2022-01-20 17:43] LABS: Basophils % 0.2 %; Eosinophils % 0.1 %; Hematocrit 42.2 % (42.0-52.0); Hemoglobin 12.7 g/dL (11.7-16.6); Lymphocytes # 0.4 10^3/uL (0.8-4.8); Lymphocytes % 5.2 %; Mean Corpuscular HGB Conc 30.1 g/dL (30.0-36.0); Mean Corpuscular Hemoglobin 27.8 pg (28.0-34.0); Mean Corpuscular Volume 92.3 fl (80-94); Mean Platelet Volume 9.9 fL (7.4-10.4); Monocytes # 0.5 10^3/uL (0.2-0.9); Monocytes % 6.2 %; Neutrophils # 7.09 10^3/uL (1.8-7.7); Neutrophils % 87.2 %; Nucleated Red Blood Cells % 0 %; Platelet Count 165 10^3/cmm (130-400); Red Blood Count 4.57 10^6/uL (4.1-5.3); Red Cell Distribution Width 12.6 % (12.1-15.1); White Blood Count 8.1 10^3/uL (4.0-10.0)
--- NOTE | 2022-01-20 17:43 | ED_ITS ---
HPI - SOB/Dyspnea General: Chief Complaint: Shortness of Breath/Dyspnea Stated Complaint: sob Time Seen by Provider: 01/20/22 17:14 Source: patient Mode of arrival: ambulatory Limitations: physical limitation (Dyspnea) History of Present Illness: HPI Narrative: 71-year-old male presents emergency room with increasing shortness of breath altered mental status began earlier today. He is chronically on oxygen at 3 L/min EMS had a prolonged transfer had them turned up to 5 L/min his sats from the low 80s when he arrived here. He is lethargic has difficult time responding. He has had problems with hypercapnia in the past. He has had a slight productive cough as well she denies chest pain or abdominal pain MD elicited complaint: shortness of breath and cough Pertinent past history: COPD Onset (ago): hour(s) Timing: constant Severity: severe Exacerbating factors: exertion, coughing and talking Relieving factors: nothing Known history of: COPD Associated symptoms: Reports chest congestion and cough; Deny abdominal pain, chest pain, diaphoresis, dizziness, extremity pain, fever(s), hemoptysis, lightheadedness, myalgias, nausea, orthopnea, palpitations, paresthesias, polydipsia, polyuria, sense of impending doom, syncope or vomiting Treatment prior to arrival: oxygen and bronchodilator Related Data: Home oxygen amount: 3 liters Review of Systems Const: Denies: fever(s), chills, fatigue, malaise or diaphoresis ENMT: Denies: throat pain, ear or mastoid pain, nasal discharge or nasal congestion Card: Denies: chest pain, palpitations, lightheadedness, syncope or orthopnea Resp: Reports: dyspnea, non-productive cough, wheezing and chest congestion; Denies: hemoptysis GI: Denies: abdominal pain, nausea or vomiting : Denies: flank pain, dysuria, urinary frequency or urinary urgency Musc: Denies: extremity pain Skin/Breast: Denies: rash or pruritus Neuro: Denies: dizziness Endo: Denies: polyuria or polydipsia PFS ED PFSH: Medical History BMI 24.0-24.9, adult CAD (coronary artery disease) Chronic respiratory failure COPD (chronic obstructive pulmonary disease) with emphysema Essential (primary) hypertension Neurogenic thoracic outlet syndrome PAD (peripheral artery disease) Urinary hesitancy Surgical History History of carotid angioplasty History of vasectomy Family History Mother Cancer Chronic kidney disease (CKD) Father Lung disease Stroke Other FH: CVA (cerebrovascular accident) Hypertension Denies family history of Diabetes CAD (coronary artery disease) Clotting disorder Dementia Suicide Anesthesia complication Bleeding disorder Social History Smoking and tobacco status: former smoker Quit status (tobacco): has quit using tobacco Year quit tobacco: 1998 Former quit date comment: started smoking on occasion at age 5, regularly age 14; 4ppd x 35 years Second hand smoke exposure: No Smoking risk assessment/counseling performed?: No Alcohol intake: never Desire information about alcohol rehabilitation?: No Counseling given: No Desire information about substance/drug rehabilitation?: No Counseling given: No Adopted: No Caregiver/support person: No Lives independently: Yes Household members: significant other Housing: House Marital status: / Number of children: 2 service: Yes branch: [employer] Current occupational status: retired Current occupational exposures/hazards: No History of recent travel: No Current gender identity: Male Physical Exam Const: GENERAL APPEARANCE: cooperative ORIENTATION/CONSCIOUSNESS: Yes awake, Yes oriented to person, Yes oriented to place and Yes oriented to time HENMT: COMMON NORMALS: normocephalic, atraumatic and hearing grossly normal bilaterally HEAD & SCALP: normocephalic and atraumatic Neck/C-Spine: COMMON NORMALS: no JVD Resp: EFFORT & INSPECTION: Yes tachypneic, Yes respiratory distress and Yes uses accessory muscles AUSCULTATION: rhonchi and wheezes Cardio: COMMON NORMALS: no JVD, regular rate, regular rhythm and No murmurs present (Cardio) RATE: regular rate RHYTHM: regular rhythm GI: COMMON NORMALS: Soft to palpation and No hepatosplenomegaly present AUS CULTATION: Yes normoactive bowel sounds PALPATION: Yes Soft to palpation, No Tenderness to palpation present (GI), No Guarding due to palpation present (GI) and Yes No hepatosplenomegaly present Extremity: COMMON NORMALS: normal to inspection, capillary refill normal, no clubbing, cyanosis or edema, no calf tenderness and no pedal edema Neuro: SENSORIUM/ORIENTATION: Yes oriented to person, Yes oriented to place and Yes oriented to time Skin: COMMON NORMALS: no rashes or lesions noted GENERAL SKIN EXAM: no rashes or lesions noted Course Vital Signs: Vital signs: Vital Signs Temperature 97.5 F L 01/21/22 00:10 Pulse Rate 78 01/21/22 06:02 Respiratory Rate 15 01/21/22 04:05 Blood Pressure 126/76 01/21/22 04:05 Pulse Oximetry 96 01/21/22 06:02 MDM - SOB/Dyspnea Medical Decision Making Patient arrives with 5 L per nasal cannula use decreased history and started on BiPAP. He had significant improvement clinically although there was some lag in his blood gases. Discussed with hospitalist will admit cover for possible bacterial infection orders written Medical Records I reviewed the patient's medical records. Lab Data I reviewed the patient's lab results. : 01/21/22 05:02 01/21/22 05:02 Labs/Radiology: Radiology Impressions Chest X-Ray 01/20/22 17:14 IMPRESSION: Pulmonary emphysema, large bilateral bulla and scattered areas of scarring are again noted. No acute abnormality is detected. Laboratory Results WBC 8.1 10^3/uL (4.0-10.0) 01/20/22 17:35 RBC 4.57 10^6/uL (4.1-5.3) 01/20/22 17:35 Hgb 12.7 g/dL (11.7-16.6) 01/20/22 17:35 Hct 42.2 % (42.0-52.0) 01/20/22 17:35 MCV 92.3 fl (80-94) 01/20/22 17:35 MCH 27.8 pg (28.0-34.0) L 01/20/22 17:35 MCHC 30.1 g/dL (30.0-36.0) 01/20/22 17:35 RDW 12.6 % (12.1-15.1) 01/20/22 17:35 Plt Count 165 10^3/cmm (130-400) 01/20/22 17:35 MPV 9.9 fL (7.4-10.4) 01/20/22 17:35 Neut % (Auto) 87.2 % 01/20/22 17:35 Lymph % (Auto) 5.2 % 01/20/22 17:35 [place] % (Auto) 6.2 % 01/20/22 17:35 Eos % (Auto) 0.1 % 01/20/22 17:35 Baso % (Auto) 0.2 % 01/20/22 17:35 Neut # (Auto) 7.09 10^3/uL (1.8-7.7) 01/20/22 17:35 Lymph # (Auto) 0.4 10^3/uL (0.8-4.8) L 01/20/22 17:35 [place] # (Auto) 0.5 10^3/uL (0.2-0.9) 01/20/22 17:35 Eos # (Auto) 0.0 10^3/uL (0.0-0.8) 01/20/22 17:35 Baso # (Auto) 0.0 10^3/uL (0.0-0.1) 01/20/22 17:35 Nucleated RBC % (auto) 0 % 01/20/22 17:35 Nucleated RBCs # 0.0 /100WBC 01/20/22 17:35 Specimen Type Arterial 01/20/22 18:25 Sample Site Radial, right 01/20/22 18:25 ABG pH 7.34 (7.35-7.45) L 01/20/22 18:25 ABG pCO2 82.5 mmHg (35-45) H* 01/20/22 18:25 ABG pO2 69.0 mmHg (80.0-100.0) L 01/20/22 18:25 ABG HCO3 44.6 mmol/L (22-26) H 01/20/22 18:25 ABG O2 Saturation 95.6 01/20/22 18:25 ABG Base Excess 15.0 mmol/L (-2.0-2.0) H 01/20/22 18:25 [place] Test Pos 01/20/22 18:25 A-a O2 Gradient 20.3 mmHg (5-10) H 01/20/22 18:25 Hematocrit 38.8 % (42-52) L 01/20/22 18:25 Hgb O2 Saturation 93.1 % (95-100) L 01/20/22 18:25 Carboxyhemoglobin 1.7 %THgb (0.4-20.1) 01/20/22 18:25 Methemoglobin 0.9 % (0.4-1.5) 01/20/22 18:25 Total Hemoglobin 12.6 g/dL (14-18) L 01/20/22 18:25 Sodium 142.0 mmol/L (131-143) 01/20/22 18:25 Potassium 4.9 mmol/L (3.5-5.0) 01/20/22 18:25 Glucose 135.0 mg/dL (70-115) H 01/20/22 18:25 Ionized Calcium 1.3 mmol/L (1.1-1.4) 01/20/22 18:25 O2 Delivery Device Bipap 01/20/22 18:25 O2 Liters/Min 4.0 % 01/20/22 17:30 FiO2 45.0 % 01/20/22 18:25 Primer Inserting Machine Adjuster ID Amh 01/20/22 18:25 Sodium 139 mmol/L (136-145) 01/20/22 17:35 Potassium 5.6 mmol/L (3.5-5.1) H 01/20/22 17:35 Chloride 94 mmol/L (98-107) L 01/20/22 17:35 Carbon Dioxide 42 mmol/L (22-29) H* 01/20/22 17:35 Anion Gap 8.6 (5-19) 01/20/22 17:35 BUN 13 mg/dL (8-23) 01/20/22 17:35 Creatinine 0.6 mg/dL (0.7-1.2) L 01/20/22 17:35 GFR Calculation Not Reportable 01/20/22 17:35 Glucose 135 mg/dL (65-115) H 01/20/22 17:35 Calculated Osmolality 290 mOsm/kg (285-295) 01/20/22 17:35 Calcium 9.6 mg/dL (8.5-10.5) 01/20/22 17:35 Total Bilirubin 1.5 mg/dL (0.15-1.2) H 01/20/22 17:35 AST 13 U/L (0-40) 01/20/22 17:35 ALT 11 U/L (0-41) 01/20/22 17:35 Alkaline Phosphatase 89 IU/L (40-130) 01/20/22 17:35 Total Protein 6.8 g/dL (6.6-8.7) 01/20/22 17:35 Albumin 3.8 g/dL (3.5-5.2) 01/20/22 17:35 Globulin 3.0 g/dL (1.3-4.6) 01/20/22 17:35 Discharge Plan Discharge Patient Disposition: Admitted As Inpatient Admit Provider: Matthew Beaulieu Clinical Impression: Acute respiratory failure with hypoxia and hypercapnia, Community acquired pneumonia, Acute exacerbation of chronic obstructive airways disease Condition: Stable Coding Level of Care Code ED Professional System Administrator for Garth Howard
[2022-01-20 17:44] LABS: ABG PCO2 84.9 mmHg (35-45)
[2022-01-20 18:01] LABS: Alanine Aminotransferase 11 U/L (0-41); Albumin Level 3.8 g/dL (3.5-5.2); Alkaline Phosphatase 89 IU/L (40-130); Anion Gap 8.6 (5-19); Aspartate Amino Transferase 13 U/L (0-40); Blood Urea Nitrogen 13 mg/dL (8-23); Calcium 9.6 mg/dL (8.5-10.5); Chloride 94 mmol/L (98-107); Glucose 135 mg/dL (65-115); Osmolality Calculated 290 mOsm/kg (285-295); Potassium 5.6 mmol/L (3.5-5.1); Sodium 139 mmol/L (136-145); Total Bilirubin 1.5 mg/dL (0.15-1.2); Total Protein 6.8 g/dL (6.6-8.7)
[2022-01-20 18:05] LABS: Carbon Dioxide 42 mmol/L (22-29)
[2022-01-20] MEDS: levofloxacin-dextrose 5 % 750 MG/150 ML PREMIX 100 MG IV (18:13)
--- NOTE | 2022-01-20 18:34 | PM.HP ---
Providers/Chief Complaint Primary Care Provider: Wilbur Sandy MD Chief Complaint: sob History of Present Illness Brayden Adler is a 71 year old male with a past medical history of CAD, chronic respiratory failure, COPD with emphysema on home BiPAP hypertension, peripheral arterial disease who presents to [facility] due to complaints of shortness of breath. Currently patient is on the BiPAP, can only speak short sentences, no intercostal retractions, no suprasternal retractions, does have nasal flaring, respiratory rate between 18-20, tolerating BiPAP well, he tells me he feels better, he tells me that he lives near [place] with his girlfriend, yesterday he was experiencing shortness of breath, which progressed to today, also having a productive sputum, yellow-green sputum, no fevers, no chills, also having some substernal chest pain with the shortness of breath, no sick contacts, has received his COVID-vaccine, no calf pain, no calf swelling, no hemoptysis. As he continues to have shortness of breath, his girlfriend called EMS, at home he uses 3 L at rest, was kept on 5 L, put on BiPAP here in the emergency room, initially difficult to arouse, not alert to person, to place, not to time, following commands Review of Systems Const: Denies: fever(s), chills, fatigue or malaise Eyes: Denies: change in vision Card: Reports: chest pain Resp: Reports: dyspnea, productive cough and wheezing GI: Denies: abdominal pain, nausea or vomiting : Denies: dysuria Skin/Breast: Reports: rash Neuro: Denies: headache(s), dizziness or vertigo Medications/Allergies Home Medications Medication Instructions Recorded Confirmed Last Taken Type albuterol sulfate 90 mcg/actuation 2 inh INHALATION QID PRN #18 gm 10/14/19 11/26/21 Unknown Rx aerosol inhaler (Ventolin HFA) hydromorphone 2 mg tablet 2 mg PO TID tab 10/23/20 11/26/21 05/21/21 08:00 History morphine 15 mg tablet,extended 15 mg PO Q12H tab 10/23/20 11/26/21 05/20/21 History release albuterol sulfate 2.5 mg (3 mL) INHALATION Q4H PRN 11/12/20 11/26/21 Unknown Rx #300 ml lorazepam 1 mg tablet 1 mg PO BID PRN 04/21/21 11/26/21 Unknown History ambulatory ventilator #1 ea 04/22/21 11/26/21 Unknown Rx lvowbwdj-las-dlrnw 200 mcg-lycop 1 tab PO DAILY 05/21/21 11/26/21 Unknown History 175 mcg-lutei 250 mcg-herb 178 tablet (Markus Multivitamin For Men) cilostazol 50 mg tablet 50 mg PO BID #180 tab 06/24/21 11/26/21 Unknown Rx clopidogrel 75 mg tablet 75 mg PO QAM #90 tab 06/24/21 11/26/21 Unknown Rx furosemide 20 mg tablet (Lasix) 20 - 40 mg PO DAILY PRN #135 tab 07/05/21 11/26/21 Unknown Rx budesonide 0.5 mg/2 mL suspension 0.5 mg (2 mL) INHALATION BID #120 09/02/21 11/26/21 Unknown Rx for nebulization (Pulmicort) ml aspirin 81 mg tablet,delayed 81 mg PO DAILY 09/29/21 11/26/21 Unknown History release (Adult Aspirin Regimen) losartan 50 mg tablet (Cozaar) 25 mg PO QAM tab 09/29/21 11/26/21 Unknown History tamsulosin 0.4 mg capsule 0.4 mg PO QAM #90 cap 10/18/21 11/26/21 Unknown Rx budesonide 160 mcg-glycopyr 9 2 inh INHALATION BID #10.7 g 11/26/21 11/26/21 Unknown Rx mcg-formot 4.8 mcg/actuation HFA inhaler (Breztri Aerosphere) Allergies Allergy/AdvReac Type Severity Reaction Status Date / Time erythromycin base Allergy Unknown Unknown Verified 01/14/22 12:28 PFSH Acute PFSH: Medical History BMI 24.0-24.9, adult CAD (coronary artery disease) Chronic respiratory failure COPD (chronic obstructive pulmonary disease) with emphysema Essential (primary) hypertension Neurogenic thoracic outlet syndrome PAD (peripheral artery disease) Urinary hesitancy Surgical History History of carotid angioplasty History of vasectomy Family History Mother Cancer Chronic kidney disease (CKD) Father Lung disease Stroke Other FH: CVA (cerebrovascular accident) Hypertension Denies family history of Diabetes CAD (coronary artery disease) Clotting disorder Dementia Suicide Anesthesia complication Bleeding disorder Social History Smoking and tobacco status: former smoker Quit status (tobacco): has quit using tobacco Year quit tobacco: 1998 Former quit date comment: started smoking on occasion at age 5, regularly age 14; 4ppd x 35 years Second hand smoke exposure: No Smoking risk assessment/counseling performed?: No Alcohol intake: never Desire information about alcohol rehabilitation?: No Counseling given: No Desire information about substance/drug rehabilitation?: No Counseling given: No Adopted: No Caregiver/support person: No Lives independently: Yes Household members: significant other Housing: House Marital status: / Number of children: 2 service: Yes branch: [employer] Current occupational status: retired Current occupational exposures/hazards: No History of recent travel: No Current gender identity: Male Vitals/I&O/Wt Last Vital Signs Temp 97.3 F L 01/20/22 17:13 Pulse 85 01/20/22 17:13 Resp 26 H 01/20/22 17:13 BP 150/100 01/20/22 17:13 Pulse Ox 93 01/20/22 17:42 Weight last 48 hrs Weight 86.183 kg Physical Exam Const: COMMON NORMALS: no acute distress and patient oriented x3 HENMT: COMMON NORMALS: normocephalic HEAD & SCALP: normocephalic Neck/C-Spine: COMMON NORMALS: no JVD Resp: COMMON NORMALS: normal respiratory effort and No retractions EFFORT & INSPECTION: Yes tachypneic and No retractions OTHER: Nasal flaring -Can only speak a few words due to shortness of breath -No intercostal retractions, no suprasternal retractions, does have nasal flaring -No evidence of respiratory distress -Airways sound tight, does have expiratory wheezing Cardio: COMMON NORMALS: no JVD, regular rate, regular rhythm, S1 normal heart sound present and S2 normal heart sound present RATE: regular rate RHYTHM: regular rhythm HEART SOUNDS: S1 normal heart sound present and S2 normal heart sound present GI: COMMON NORMALS: Normal to inspection, nondistended, normoactive bowel sounds present, Soft to palpation, non-tender, No hepatosplenomegaly present, no masses and no bruits PALPATION: Yes Soft to palpation and Yes No hepatosplenomegaly present Extremity: COMMON NORMALS: capillary refill normal, no clubbing, cyanosis or edema, no calf tenderness and no pedal edema Neuro: COMMON NORMALS: patient oriented x3 Psych: COMMON NORMALS: mental status grossly normal Data : 01/20/22 17:35 01/20/22 17:35 A&P Assessment and plan (1) Acute and chronic respiratory failure: Status: Acute Qualifiers: Respiratory failure complication: hypoxia and hypercapnia Qualified Code(s): J96.21 - Acute and chronic respiratory failure with hypoxia; J96.22 - Acute and chronic respiratory failure with hypercapnia (2) Dyslipidemia: Status: Acute (3) Carotid stenosis: Status: Acute (4) Atherosclerotic heart disease of zuni coronary artery with other forms of angina pectoris: Status: Acute (5) COPD (chronic obstructive pulmonary disease) with emphysema: Status: Chronic Qualifiers: Emphysema type: panlobular Qualified Code(s): J43.1 - Panlobular emphysema (6) CAD (coronary artery disease): Status: Chronic Qualifiers: Coronary Disease-Associated Artery/Lesion type: zuni artery [place] vs. transplanted heart: zuni heart Associated angina: without angina Qualified Code(s): I25.10 - Atherosclerotic heart disease of zuni coronary artery without angina pectoris (7) BMI 24.0-24.9, adult: Status: Acute Plan Acute on chronic hypercarbic respiratory failure -Possible underlying pneumonia -Will admit to ICU for close monitoring -Continue BiPAP -Monitor respiratory status closely, monitor for respiratory distress -Repeat ABG in 4 hours -Solu-Medrol 125 followed by 60 every 6 hours -Budesonide every 12 hours -DuoNeb every 4 hours -We will start vancomycin, Zosyn for antibiotic coverage -Blood cultures, MRSA nares PCR, sputum cultures, urine bacterial antigen -Lovenox for DVT prophylaxis -Full code Chest pain -Continue aspirin, statin, Plavix -Recently had a low probability cardiac stress test -Serial EKGs, serial troponins, nitro as needed for chest pain Chronic pain, continue home Dilaudid Attestations Medical Necessity Statement*: Patient requires hospitalization, inpatient, greater than 2 midnights, for acute on chronic hypercarbic respiratory failure Coding Level of Care Code Acute Potato Inspector for Chg Fwd Diagnoses Acute and chronic respiratory failure J96.21; J96.22 Respiratory failure complication: hypoxia and hypercapnia Dyslipidemia E78.5 Carotid stenosis I65.29 Atherosclerotic heart disease of zuni coronary artery with other forms of angina pectoris I25.118 COPD (chronic obstructive pulmonary disease) with emphysema J43.1 Emphysema type: panlobular CAD (coronary artery disease) I25.10 Coronary Disease-Associated Artery/Lesion type: zuni artery [place] vs. transplanted heart: zuni heart Associated angina: without angina BMI 24.0-24.9, adult Z68.24
[2022-01-20 18:37] LABS: ABG PH Result 7.34 (7.35-7.45); Alveolar-Arterial Oxygen Gradi 20.3 mmHg (5-10); Arterial Blood Gas Hematocrit 38.8 % (42-52); Blood Gas Allen Test Pos; Blood Gas Operator Identificat AMH; Blood Gas Sample Site Radial, right; Blood Gas Sample Type Arterial; Carboxyhemoglobin 1.7 %THgb (0.4-20.1); HCO3 ABG 44.6 mmol/L (22-26); HGB O2 Sat 93.1 % (95-100); Ionized Calcium Level - ABG 1.3 mmol/L (1.1-1.4); Methemoglobin 0.9 % (0.4-1.5); Oxygen Device BIPAP; Oxygen Saturation ABG 95.6; Potassium Level - ABG 4.9 mmol/L (3.5-5.0); Total Hemoglobin 12.6 g/dL (14-18)
[2022-01-20 18:39] LABS: ABG PCO2 82.5 mmHg (35-45)
--- NOTE | 2022-01-20 19:08 | PC.PHAR ---
PT UNABLE TO VERIFY MEDS- PT BROUGHT FROM HOME BY EMS - PT HAD LIST OF MEDS IN ROOM PROVIDED BY MEDICS THAT BROUGHT PT TO ER- MEDS VERIFIED USING EXT. MED LIST AND LIST PROVIDED BY EMS.
[2022-01-20 20:31] LABS: ABG PH Result 7.38 (7.35-7.45); Blood Gas Allen Test Pos; Blood Gas Sample Site Radial, left; Blood Gas Sample Type Arterial; HCO3 ABG 44.8 mmol/L (22-26); Oxygen Device BIPAP; PO2 ABG 63.1 mmHg (80.0-100.0)
[2022-01-20 20:32] LABS: ABG PCO2 76.5 mmHg (35-45)
--- NOTE | 2022-01-20 21:00 | PC.NURSE ---
Transfer Note Patient transferred to ICU from ER via stretcher. Handoff received from CATHY Alvares. Patient confused at this time, he is disoriented to time, place and situation. He is alert to self and follows all commands. No wounds or skin issues noted at this time. Patient belongings at bedside.
[2022-01-20] MEDS: pantoprazole 40 mg SDV IVP (21:02)
[2022-01-20] MEDS: enoxaparin 40 mg/0.4 mL Syringe SUBCUT (21:03)
[2022-01-20] MEDS: ipratropium-albuterol 3 mL Neb INHALATION (21:37)
[2022-01-20] MEDS: budesonide 0.5 mg/2 mL Neb INHALATION (21:37)
[2022-01-20 21:59] LABS: Lactic Sepsis W/Reflex 1.3 mmol/L (0.5-2.2)
[2022-01-20 22:09] LABS: Chol HDL Ratio 2.44 mg/dL (1.0-5.00); Cholesterol 161 mg/dL (0-200); HDL Cholesterol 66 mg/dL (60-100); LDL Cholesterol Calculated 85 mg/dL (50-129); LDL HDL Ratio 1.29 RATIO (0.00-3.22); Thyroid Stimulating Hormone 1.31 uIU/mL (0.27-4.20); Triglycerides 52 mg/dL (0-150)
--- NOTE | 2022-01-20 23:05 | PC.PHAR ---
Pharmacokinetic dosing service Date: 01/20/22 Time: 2299 Objective: Patient: Brayden Luo Floor: ICU-3 Age: 71 yo Serum creatinine: 0.6 mg/dL Height: 71.0 Inches Weight (kg): 86.183 Diagnosis: Relevant medical/social history: Cultures and sensitivities: Other labs: Assessment: IBW (kg): 75.30 Dosing wt(kg): 86.183 Estimated Creatinine clearance (ml/min): 118.5 CRCL method: Cockcroft and Gault using ibw(default). Drug selected: Vancomycin Loading dose (mg): 0 Vd (liters): 77.6 (factor used: 0.9 L/kg) Jose D (hr-1): 0.103 Half life (hrs): 6.73 Recommended dose: 1500 mg Interval: 8 hrs Infusion time (hrs): 1.5 Predicted peak (mcg/mL): 31.9 Predicted trough (mcg/mL): 16.33 Total body weight is being used for vancomycin dosing. Renal function is stable [ ] /unstable [ ] Recommendations: Give Vancomycin 1500 mg q 8 hrs with an expected Cpeak of 31.9 mcg/ml and an expected Ctrough of 16.33 mcg/ml Renal dosing of other antibiotics (review renal dosing of other medications and list guidelines here): Thank you for the consult, will continue to follow. Signature: Mamie Richards [facility]
[2022-01-21] VITALS (96 sets, daily range): BP systolic 125–192; BP diastolic 72–113; PULSE 0–127; RESP 13–26; TEMP 36.4–36.9; O2SAT 60–100
[2022-01-21 00:54] LABS: Add Urine Culture? No; Add Urine Microscopic? YES; Amorphous Sediment Urine 4+ /hpf; Bacteria Urine TRACE /hpf; Bilirubin Urine Neg (Negative); Blood Urine Neg (Negative); Glucose Urine UA Norm (Normal); Ketones Urine 2+ (Negative); Leukocyte Esterase Urine Negative (Negative); Nitrate Urine Negative (Negative); Protein Urine Neg (Negative); RBC Urine 0-4 /hpf (0-2); Specific Gravity, Urine 1.015 (1.005-1.030); Squamous Epithelial Cell Urine 0-4 /hpf (0-5); Urine Appearance Hazy (CLEAR); Urine Color Yellow (Yellow); Urobilinogen Urine Norm (Negative); WBC Urine 0-4 /hpf (0-5); pH Urine 8 (5-7)
[2022-01-21] MEDS: piperacillin-tazobactam 3.375 GM in sodium chloride 0.9% (plus) 50 ML IV ×4 (00:59→23:28)
[2022-01-21 01:03] LABS: Glucose Point of Care 107 mg/dL (70-110)
[2022-01-21] MEDS: ipratropium-albuterol 3 mL Neb INHALATION ×6 (03:34→23:33)
[2022-01-21 05:15] LABS: ABG PH Result 7.41 (7.35-7.45); Arterial Blood Gas Hematocrit 37.6 % (42-52); Base Excess ABG 14.8 mmol/L (-2.0-2.0); Blood Gas Sample Type Arterial; HCO3 ABG 42.3 mmol/L (22-26); PO2 ABG 63.5 mmHg (80.0-100.0)
[2022-01-21 05:17] LABS: Blood Gas Sample Site Brachial, left; Oxygen Device BIPAP
[2022-01-21 05:27] LABS: Basophils % 0.2 %; Hematocrit 38.2 % (42.0-52.0); Hemoglobin 11.7 g/dL (11.7-16.6); Lymphocytes # 0.4 10^3/uL (0.8-4.8); Lymphocytes % 7.7 %; Mean Corpuscular HGB Conc 30.6 g/dL (30.0-36.0); Mean Corpuscular Hemoglobin 27.5 pg (28.0-34.0); Mean Corpuscular Volume 89.9 fl (80-94); Mean Platelet Volume 10.5 fL (7.4-10.4); Monocytes % 0.9 %; Neutrophils # 4.27 10^3/uL (1.8-7.7); Neutrophils % 90.8 %; Nucleated Red Blood Cells % 0 %; Platelet Count 165 10^3/cmm (130-400); Red Blood Count 4.25 10^6/uL (4.1-5.3); Red Cell Distribution Width 12.5 % (12.1-15.1); White Blood Count 4.7 10^3/uL (4.0-10.0)
[2022-01-21 05:50] LABS: Alanine Aminotransferase 10 U/L (0-41); Albumin Level 3.6 g/dL (3.5-5.2); Alkaline Phosphatase 75 IU/L (40-130); Anion Gap 7.9 (5-19); Aspartate Amino Transferase 12 U/L (0-40); Blood Urea Nitrogen 18 mg/dL (8-23); C Reactive Protein 3.7 mg/L (0.0-4.9); Calcium 9.4 mg/dL (8.5-10.5); Chloride 98 mmol/L (98-107); Globulin 2.6 g/dL (1.3-4.6); Glucose 143 mg/dL (65-115); Magnesium 1.8 mg/dL (1.7-2.3); Osmolality Calculated 298 mOsm/kg (285-295); Phosphorus 2.3 mg/dL (2.5-4.5); Potassium 4.9 mmol/L (3.5-5.1); Sodium 142 mmol/L (136-145); Total Bilirubin 1.5 mg/dL (0.15-1.2); Total Protein 6.2 g/dL (6.6-8.7)
[2022-01-21 05:51] LABS: NT Pro B Type Natriuretic Pept 275 pg/mL (0-125); Procalcitonin 0.07 ng/mL (0-0.5)
[2022-01-21 05:52] LABS: Carbon Dioxide 41 mmol/L (22-29)
[2022-01-21 06:01] LABS: ABG PCO2 66.3 mmHg (35-45)
[2022-01-21] MEDS: clopidogrel 75 mg Tablet PO (06:10)
[2022-01-21] MEDS: tamsulosin 0.4 mg Capsule PO (06:10)
--- NOTE | 2022-01-21 06:55 | PC.NURSE ---
Bedside report completed with CATHY Pierre.
--- NOTE | 2022-01-21 07:00 | PC.NURSE ---
Bedside report completed with Ivis Jessica RN.
--- NOTE | 2022-01-21 07:25 | PC.NURSE ---
Shift Summary Patient had an uneventful shift remains on BIPAP 40% FiO2. No wounds or skin issues noted at this time. Patient easily arouses this morning and is alert/oriented x4. Voided 500 mls with urinal overnight. Vancomycin infusing per protocol please see MAR for detail.
--- NOTE | 2022-01-21 07:28 | PC.NURSE ---
Spoke with Family Spoke with patient daughter Myah this morning and updated with patient condition. Answered all questions.
[2022-01-21 08:25] LABS: Adenovirus Not Detected (NOT DETECT); Chlamydia Pneumoniae Not Detected (NOT DETECT); Coronavirus 229E,HKU1,NL63,OC4 Not Detected (NOT DETECT); Human Metapneumovirus Not Detected (NOT DETECT); Human Rhinovirus/Enterovirus Not Detected (NOT DETECT); Influenza A Not Detected (NOT DETECT); Influenza A H1 Not Detected (NOT DETECT); Influenza A H1-2009 Not Detected (NOT DETECT); Influenza A H3 Not Detected (NOT DETECT); Influenza B Not Detected (NOT DETECT); Mycoplasma Pneumoniae Not Detected (NOT DETECT); Parainfluenza Virus Type 1 Not Detected (NOT DETECT); Parainfluenza Virus Type 2 Not Detected (NOT DETECT); Parainfluenza Virus Type 3 Not Detected (NOT DETECT); Parainfluenza Virus Type 4 Not Detected (NOT DETECT); Respiratory Syncytial Virus A Not Detected (NOT DETECT); Respiratory Syncytial Virus B Not Detected (NOT DETECT); SARS-COV-2 Not Detected (NOT DETECT)
[2022-01-21] MEDS: budesonide 0.5 mg/2 mL Neb INHALATION ×2 (08:46→20:28)
[2022-01-21] MEDS: aspirin 81 mg EC Tablet PO (09:03)
[2022-01-21] MEDS: cilostazol 100 mg Tablet 50 MG PO ×2 (09:03→18:08)
[2022-01-21] MEDS: magnesium sulfate premix 2 GM/50 ML PIGGYBACK IV (09:05)
--- NOTE | 2022-01-21 09:26 | PC.CHAP ---
Pastoral Care Encounter/Spiritual Assessment Type of Contact [] Declined child nutrition assistant visit [] Patient/Family/Request visit [] Outpatient visit [] Follow-up visit [] Physician referral [] Code/Alert [x] Routine visit [] Staff referral [] Actively dying [x] Patient sleeping [] Family support [] [] Out of room [] Palliative care [] [] Receiving care in room [] Pre-surgical visit [] Trauma [] Long length of stay [x] ICU visit [x] Other: oxg mask Relational/Emotional Strength [] Patient feels connected with others/family/visitors/staff [] Distress [] Loneliness/isolation [] Abandonment Spirituality of Patient [] Person of Lauren [] Attends Scientologist of their Lauren [] Believes in Prayer [] Reads Bible or Hoahaoism materials [] There are Spiritual issues to be addressed Receptionist Doctor'S Office Interventions [x] Prayer [] Active listening [] Non-anxious presence [] Spiritual/emotional support [] Crisis/trauma care [] Spiritual counseling [] Bereavement support [] Provided bereavement packet [] Provided Bible/devotional materials [] Provided toy/stuffed animal, coloring book to patient or family member [] Provided Communion [] Anointing/[place] [] Salvation [x] Completed spiritual assessment [] Other: Impact on Illness or Injury [] Angry [] Fearful [] Anxious [] Often cries [] Exhaustion [] Unable to work [] Unable to attend taoist [] Unable to walk/stand [] Unable to read [] Unable to drive [] Unable to eat/drink [] Unable to sleep [] Unable to be with family [] Patient intubated [] Other: Summary Time spent with patient
--- NOTE | 2022-01-21 09:55 | PC.NURSE ---
O2 sats 86-88% on 4lpm/NC, while pt visiting with friend. Discussed pursed lip breathing, Pt verbalized understanding and demonstrated.
[2022-01-21 10:38] LABS: Results from Genmark
--- NOTE | 2022-01-21 12:59 | P.PN_ITS ---
Subjective Subjective: Patient was seen this morning, currently on BiPAP, he is much more alert and awake, following all commands, he tells me he feels a lot better, he is really hungry wants to try to eat something, no chest pain Vitals/I&O/Wt Last Vital Signs Temp 98.2 F 01/21/22 08:00 Pulse 113 H 01/21/22 12:00 Resp 20 H 01/21/22 12:00 BP 145/79 01/21/22 11:00 Pulse Ox 87 L 01/21/22 11:30 01/20/22 01/21/22 01/21/22 22:59 06:59 14:59 Intake Total 150 / 150 300 / 450 700 / 700 Output Total 250 / 250 375 / 375 Balance 150 / 150 50 / 200 325 / 325 Weight last 48 hrs Weight 86.183 kg Physical Exam Const: COMMON NORMALS: no acute distress and patient oriented x3 Resp: COMMON NORMALS: normal respiratory effort, No retractions and No use of accessory muscles OTHER: Bilateral lung garcia, decreased aeration, diminished breath sounds, does have scattered wheezing Cardio: COMMON NORMALS: regular rate, regular rhythm, S1 normal heart sound present and S2 normal heart sound present RATE: regular rate RHYTHM: regular rhythm HEART SOUNDS: S1 normal heart sound present and S2 normal heart sound present GI: COMMON NORMALS: Normal to inspection, nondistended, normoactive bowel sounds present, Soft to palpation, non-tender and No hepatosplenomegaly present PALPATION: Yes Soft to palpation and Yes No hepatosplenomegaly present Extremity: COMMON NORMALS: no pedal edema Neuro: COMMON NORMALS: patient oriented x3 Psych: COMMON NORMALS: mental status grossly normal Data : 01/21/22 05:02 01/21/22 05:02 Micro: Microbiology 01/20/22 19:44 Bacterial Antigens - Final Urine,Clean Catch 01/20/22 19:18 Blood Culture - Preliminary Blood SPECIMEN COLLECTED 01/20/22 19:15 Blood Culture - Preliminary Blood SPECIMEN COLLECTED A&P Assessment and plan (1) Acute and chronic respiratory failure: Status: Acute Qualifiers: Respiratory failure complication: hypoxia and hypercapnia Qualified Code(s): J96.21 - Acute and chronic respiratory failure with hypoxia; J96.22 - Acute and chronic respiratory failure with hypercapnia (2) Dyslipidemia: Status: Acute (3) Carotid stenosis: Status: Acute (4) Atherosclerotic heart disease of [place] coronary artery with other forms of angina pectoris: Status: Acute (5) COPD (chronic obstructive pulmonary disease) with emphysema: Status: Chronic Qualifiers: Emphysema type: panlobular Qualified Code(s): J43.1 - Panlobular emphysema (6) CAD (coronary artery disease): Status: Chronic Qualifiers: Coronary Disease-Associated Artery/Lesion type: [place] artery [place] vs. transplanted heart: [place] heart Associated angina: without angina Qualified Code(s): I25.10 - Atherosclerotic heart disease of [place] coronary artery without angina pectoris (7) BMI 24.0-24.9, adult: Status: Acute Plan Acute on chronic hypercarbic respiratory failure -Possible underlying pneumonia -Will admit to ICU for close monitoring -Continue BiPAP, as needed during the day schedule during the night -Monitor respiratory status closely, monitor for respiratory distress -Solu-Medrol 60 every 6 hours -Budesonide every 12 hours -DuoNeb every 4 hours -We will start vancomycin, Zosyn for antibiotic coverage, will de-escalate -Blood cultures, MRSA nares PCR, sputum cultures, urine bacterial antigen -Lovenox for DVT prophylaxis -Full code Chest pain -Continue aspirin, statin, Plavix -Recently had a low probability cardiac stress test -Telemetry monitoring Chronic pain, continue home Dilaudid Attestations Medical Necessity Statement*: Patient requires hospitalization for acute on chronic respiratory failure, hypercarbic respiratory failure, COPD exacerbation, critical care time spent 25 minutes Coding Level of Care Code Acute 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 transplanted heart: [place] heart Associated angina: without angina BMI 24.0-24.9, adult Z68.24
--- NOTE | 2022-01-21 19:00 | PC.NURSE ---
Bedside report completed with Susie Haji RN. Pt used NC at 4lp this shift, he did get short of breath while visiting this afternoon. He does not know and when to purse l ip breath. He is feeling much better. He has been up to BSC x-large BM noted. He has been up ad kashmir using his urinal without difficulty this evening. His Left AC IV kept leaking at insertion site. Remove it and started new IV.
[2022-01-21] MEDS: pantoprazole 40 mg SDV IVP (19:43)
[2022-01-21] MEDS: enoxaparin 40 mg/0.4 mL Syringe SUBCUT (20:45)
--- NOTE | 2022-01-21 21:15 | PC.NURSE ---
Blood Pressure Patient's blood pressure running 160-170s throughout the day with a current blood pressure of 192/107. Dr. Brown contacted multiple times. Contact made and telephone order received for 10 mg amlodipine PO once and to relay the blood pressure in two hours. Medication administered per SEP.
[2022-01-21] MEDS: amlodipine 10 mg Tablet PO (21:22)
[2022-01-21 22:26] LABS: Vancomycin Trough 26.1 ug/mL (10-15)
--- NOTE | 2022-01-21 23:30 | PC.NURSE ---
Blood Pressure Patient's systolic blood pressure remaining in the 180s, diastolic in the high 90s-low 100s. Dr. Brown contacted and telephone order received to monitor blood pressure for another hour for decreases.
[2022-01-22] VITALS (51 sets, daily range): BP systolic 123–188; BP diastolic 73–126; PULSE 65–128; RESP 12–26; TEMP 36.6–36.9; O2SAT 81–99; BMI 23.6
[2022-01-22] MEDS: ipratropium-albuterol 3 mL Neb INHALATION ×5 (04:07→19:54)
[2022-01-22 05:24] LABS: Hemoglobin 11.9 g/dL (11.7-16.6); Lymphocytes # 0.5 10^3/uL (0.8-4.8); Lymphocytes % 5.4 %; Mean Corpuscular HGB Conc 32.2 g/dL (30.0-36.0); Mean Corpuscular Hemoglobin 27.7 pg (28.0-34.0); Mean Corpuscular Volume 86.2 fl (80-94); Mean Platelet Volume 9.9 fL (7.4-10.4); Monocytes # 0.3 10^3/uL (0.2-0.9); Monocytes % 3.3 %; Neutrophils % 90.8 %; Nucleated Red Blood Cells % 0 %; Platelet Count 177 10^3/cmm (130-400); Red Blood Count 4.29 10^6/uL (4.1-5.3); Red Cell Distribution Width 12.9 % (12.1-15.1); White Blood Count 8.4 10^3/uL (4.0-10.0)
[2022-01-22 05:48] LABS: Alanine Aminotransferase 17 U/L (0-41); Albumin Level 3.7 g/dL (3.5-5.2); Alkaline Phosphatase 73 IU/L (40-130); Anion Gap 9.4 (5-19); Aspartate Amino Transferase 27 U/L (0-40); Blood Urea Nitrogen 26 mg/dL (8-23); Calcium 9.4 mg/dL (8.5-10.5); Carbon Dioxide 37 mmol/L (22-29); Chloride 101 mmol/L (98-107); Globulin 2.7 g/dL (1.3-4.6); Glucose 152 mg/dL (65-115); Magnesium 2.1 mg/dL (1.7-2.3); Osmolality Calculated 304 mOsm/kg (285-295); Potassium 4.4 mmol/L (3.5-5.1); Sodium 143 mmol/L (136-145); Total Bilirubin 1.3 mg/dL (0.15-1.2); Total Protein 6.4 g/dL (6.6-8.7)
[2022-01-22 05:49] LABS: ABG PH Result 7.43 (7.35-7.45); Arterial Blood Gas Hematocrit 39.2 % (42-52); Base Excess ABG 13.1 mmol/L (-2.0-2.0); Blood Gas Allen Test Pos; Blood Gas Operator Identificat JB; Blood Gas Sample Site Radial, right; Blood Gas Sample Type Arterial; Oxygen Device NC; PO2 ABG 82.6 mmHg (80.0-100.0)
[2022-01-22 05:54] LABS: NT Pro B Type Natriuretic Pept 624 pg/mL (0-125); Procalcitonin 0.07 ng/mL (0-0.5)
[2022-01-22 05:55] LABS: ABG PCO2 60.2 mmHg (35-45)
[2022-01-22] MEDS: tamsulosin 0.4 mg Capsule PO (06:05)
[2022-01-22] MEDS: clopidogrel 75 mg Tablet PO (06:05)
--- NOTE | 2022-01-22 06:38 | PC.NURSE ---
Bedside Commode Throughout the night, patient walked from bed to bedside commode and back several times; each time, his oxygen saturation decreased to 84-85%. Once settled, oxygen saturation recovered to low-mid 90s. Patient tolerated activity well in all other aspects.
[2022-01-22] MEDS: aspirin 81 mg EC Tablet PO (08:16)
[2022-01-22] MEDS: piperacillin-tazobactam 3.375 GM in sodium chloride 0.9% (plus) 50 ML IV ×2 (08:16→15:44)
[2022-01-22] MEDS: cilostazol 100 mg Tablet 50 MG PO ×2 (08:16→17:46)
[2022-01-22] MEDS: budesonide 0.5 mg/2 mL Neb INHALATION ×2 (09:10→19:54)
[2022-01-22] MEDS: spironolactone 25 mg Tablet PO (09:13)
--- NOTE | 2022-01-22 12:51 | ECG_ITS ---
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 Measurements Intervals [place] Rate: 102 P: 74 UT: 136 QRS: 51 QRSD: 93 T: 50 QT: 328 QTc: 429 Interpretive Statements SINUS TACHYCARDIA POSSIBLE RIGHT VENTRICULAR CONDUCTION DELAY [RSR (QR) IN V1/V2] Compared to ECG 01/20/2022 17:29:21 Sinus rhythm no longer present Electronically Signed On 01-22-2022 18:54:38 CDT by Helio Pimentel M.D. [email or web address] [email or web address].[email or web address]/store/[id number]
[2022-01-22] MEDS: metoprolol tartrate 25 mg Tablet PO (13:50)
[2022-01-22 14:01] LABS: Troponin(5th) Baseline 13 ng/L (0-15)
--- NOTE | 2022-01-22 14:42 | P.PN_ITS ---
Subjective Subjective: Patient was seen this morning, he sitting up to side of bed, he tells me he feels a lot better, his breathing has improved, he is wondering when he can go home, still has some productive cough, does have sinus tachycardia on his monitor, he has no complaints of chest pain or palpitation Vitals/I&O/Wt Last Vital Signs Temp 97.9 F 01/22/22 04:00 Pulse 110 H 01/22/22 12:10 Resp 20 H 01/22/22 12:06 BP 166/88 01/22/22 12:00 Pulse Ox 92 01/22/22 12:06 01/21/22 01/22/22 01/22/22 22:59 06:59 14:59 Intake Total 900 / 2150 850 / 3000 494 / 494 Output Total 555 / 1130 150 / 1280 500 / 500 Balance 345 / 1020 700 / 1720 -6 / -6 Weight last 48 hrs Weight 76.657 kg Weight 86.183 kg Physical Exam Const: COMMON NORMALS: no acute distress and patient oriented x3 Resp: COMMON NORMALS: normal respiratory effort, No retractions and No use of accessory muscles OTHER: Diminished lung sounds in all lung garcia Cardio: COMMON NORMALS: regular rate, regular rhythm, S1 normal heart sound present and S2 normal heart sound present RATE: regular rate RHYTHM: regular rhythm HEART SOUNDS: S1 normal heart sound present and S2 normal heart sound present GI: COMMON NORMALS: Normal to inspection, nondistended, normoactive bowel sounds present, Soft to palpation, non-tender and No hepatosplenomegaly present PALPATION: Yes Soft to palpation and Yes No hepatosplenomegaly present Extremity: COMMON NORMALS: no pedal edema Neuro: COMMON NORMALS: patient oriented x3 Psych: COMMON NORMALS: mental status grossly normal Data : 01/22/22 05:14 01/22/22 05:14 Micro: Microbiology 01/20/22 19:18 Blood Culture - Preliminary Blood NEGATIVE TO DATE 01/20/22 19:15 Blood Culture - Preliminary Blood NEGATIVE TO DATE A&P Assessment and plan (1) Acute and chronic respiratory failure: Status: Acute Qualifiers: Respiratory failure complication: hypoxia and hypercapnia Qualified Code(s): J96.21 - Acute and chronic respiratory failure with hypoxia; J96.22 - Acute and chronic respiratory failure with hypercapnia (2) Dyslipidemia: Status: Acute (3) Carotid stenosis: Status: Acute (4) Atherosclerotic heart disease of [place] coronary artery with other forms of angina pectoris: Status: Acute (5) COPD (chronic obstructive pulmonary disease) with emphysema: Status: Chronic Qualifiers: Emphysema type: panlobular Qualified Code(s): J43.1 - Panlobular emphysema (6) CAD (coronary artery disease): Status: Chronic Qualifiers: Coronary Disease-Associated Artery/Lesion type: [place] artery [place] vs. transplanted heart: [place] heart Associated angina: without angina Qualified Code(s): I25.10 - Atherosclerotic heart disease of [place] coronary artery without angina pectoris (7) BMI 24.0-24.9, adult: Status: Acute Plan Acute on chronic hypercarbic respiratory failure -Possible underlying pneumonia -We will moved to general medical floors -Continue BiPAP, as needed during the day schedule during the night -Monitor respiratory status closely, monitor for respiratory distress -Solu-Medrol 60 every 8 hours -Budesonide every 12 hours -DuoNeb every 4 hours -Stop vancomycin, elevated vancomycin trough -Continue Zosyn -Blood cultures, MRSA nares PCR, sputum cultures, urine bacterial antigen -Lovenox for DVT prophylaxis -Full code Chest pain -Continue aspirin, statin, Plavix, beta-yung -Recently had a low probability cardiac stress test -Telemetry monitoring Sinus tachycardia, repeat EKGs, troponin series Chronic pain, continue home Dilaudid Attestations Medical Necessity Statement*: Patient requires hospitalization for acute hypercarbic respiratory failure, we will moved to general medical floors Coding Level of Care Code Acute 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 transplanted heart: [place] heart Associated angina: without angina BMI 24.0-24.9, adult Z68.24
--- NOTE | 2022-01-22 14:51 | ECG_ITS ---
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 Measurements Intervals [place] Rate: 66 P: 61 NE: 150 QRS: 59 QRSD: 88 T: 47 QT: 375 QTc: 395 Interpretive Statements SINUS RHYTHM Compared to ECG 01/22/2022 13:26:52 Sinus tachycardia no longer present Electronically Signed On 01-22-2022 18:59:23 CDT by Helio Pimentel M.D. [id number]
--- NOTE | 2022-01-22 18:51 | ECG_ITS ---
[facility] Test Date: 2022-01-22 Pat Name: Brayden Adler Department: Room: 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 Measurements Intervals [place] Rate: 83 P: 73 [place]: 138 QRS: 60 QRSD: 94 T: 47 QT: 349 QTc: 411 Interpretive Statements SINUS RHYTHM Compared to ECG 01/22/2022 15:38:14 No significant changes Electronically Signed On 01-22-2022 18:58:15 CDT by Helio Pimentel M.D. [id number]
[2022-01-22 19:13] LABS: Troponin 5 6HR 17.47 ng/L (0-15)
[2022-01-22 19:14] LABS: Troponin 5 6HR Delta 4.47 ng/L (0-12)
[2022-01-22] MEDS: pantoprazole 40 mg SDV IVP (19:49)
--- NOTE | 2022-01-22 20:15 | PC.NURSE ---
Blood Pressure Patient's blood pressure 180/104. Dr. Brown contacted and telephone order received for 10 mg amlodipine PO daily starting now. Medication administered per SEP.
[2022-01-22] MEDS: enoxaparin 40 mg/0.4 mL Syringe SUBCUT (20:48)
[2022-01-22] MEDS: amlodipine 10 mg Tablet PO (20:48)
--- NOTE | 2022-01-22 22:02 | PC.NURSE ---
Transfer Patient transferred to [facility] bed 255-1 via bed with two nurses. All belongings with patient at time of transfer and placed bedside. [facility] nurse at bedside in room, receiving nurse to be made aware. All vitals stable.
[2022-01-23] VITALS (16 sets, daily range): BP systolic 157–186; BP diastolic 83–97; PULSE 0–90; RESP 16–20; TEMP 36.5–36.8; O2SAT 83–97; BMI 23.6
[2022-01-23] MEDS: ipratropium-albuterol 3 mL Neb INHALATION ×4 (00:28→11:15)
[2022-01-23] MEDS: metoprolol tartrate 25 mg Tablet PO ×2 (00:37→13:13)
[2022-01-23] MEDS: piperacillin-tazobactam 3.375 GM in sodium chloride 0.9% (plus) 50 ML IV ×2 (00:37→09:30)
[2022-01-23 03:02] LABS: Basophils % 0.1 %; Lymphocytes # 0.3 10^3/uL (0.8-4.8); Lymphocytes % 3.3 %; Mean Corpuscular HGB Conc 32.4 g/dL (30.0-36.0); Mean Corpuscular Hemoglobin 27.6 pg (28.0-34.0); Mean Corpuscular Volume 85.1 fl (80-94); Mean Platelet Volume 10.5 fL (7.4-10.4); Monocytes # 0.4 10^3/uL (0.2-0.9); Monocytes % 3.5 %; Neutrophils # 9.45 10^3/uL (1.8-7.7); Neutrophils % 92.6 %; Nucleated Red Blood Cells % 0 %; Platelet Count 195 10^3/cmm (130-400); Red Blood Count 4.35 10^6/uL (4.1-5.3); Red Cell Distribution Width 13.1 % (12.1-15.1); White Blood Count 10.2 10^3/uL (4.0-10.0)
[2022-01-23 03:33] LABS: NT Pro B Type Natriuretic Pept 929 pg/mL (0-125); Procalcitonin 0.07 ng/mL (0-0.5)
[2022-01-23 03:44] LABS: Alanine Aminotransferase 19 U/L (0-41); Albumin Level 3.6 g/dL (3.5-5.2); Alkaline Phosphatase 66 IU/L (40-130); Blood Urea Nitrogen 29 mg/dL (8-23); Carbon Dioxide 35 mmol/L (22-29); Chloride 100 mmol/L (98-107); Globulin 2.7 g/dL (1.3-4.6); Glucose 142 mg/dL (65-115); Magnesium 2.1 mg/dL (1.7-2.3); Osmolality Calculated 300 mOsm/kg (285-295); Phosphorus 3.6 mg/dL (2.5-4.5); Sodium 141 mmol/L (136-145); Total Bilirubin 1.1 mg/dL (0.15-1.2); Total Protein 6.3 g/dL (6.6-8.7)
[2022-01-23 03:45] LABS: Anion Gap 10.5 (5-19); Potassium 4.5 mmol/L (3.5-5.1)
[2022-01-23 03:46] LABS: Aspartate Amino Transferase 27 U/L (0-40)
[2022-01-23 04:16] LABS: ABG PH Result 7.42 (7.35-7.45); Arterial Blood Gas Hematocrit 37.5 % (42-52); Base Excess ABG 12.8 mmol/L (-2.0-2.0); Blood Gas Allen Test Pos; Blood Gas Operator Identificat JB; Blood Gas Sample Site Radial, right; Blood Gas Sample Type Arterial; HCO3 ABG 39.7 mmol/L (22-26); Oxygen Device NC
[2022-01-23 04:17] LABS: ABG PCO2 60.9 mmHg (35-45)
[2022-01-23] MEDS: tamsulosin 0.4 mg Capsule PO (05:26)
[2022-01-23] MEDS: clopidogrel 75 mg Tablet PO (05:26)
[2022-01-23] MEDS: budesonide 0.5 mg/2 mL Neb INHALATION (07:56)
[2022-01-23] MEDS: cloNIDine 0.1 mg Tablet PO (10:43)
[2022-01-23] MEDS: cilostazol 100 mg Tablet 50 MG PO (10:43)
[2022-01-23] MEDS: amlodipine 10 mg Tablet PO (10:44)
[2022-01-23] MEDS: aspirin 81 mg EC Tablet PO (10:44)
[2022-01-23] MEDS: spironolactone 25 mg Tablet PO (10:45)
--- NOTE | 2022-01-23 11:45 | PC.SOCIAL ---
IMM update IMM updated with patient. Verbalized an understanding. Copy Pg provided. Initialled, dated, timed, and placed in chart.
--- NOTE | 2022-01-23 11:54 | P.DS_ITS ---
Discharge Providers Date of Admission: 01/20/22 20:14 Date of Discharge: January 23, 2022 Attending Provider at Admission: Matthew Beaulieu MD Attending Provider at Discharge: Matthew Beaulieu MD Primary Care Provider: Wilbur Sandy MD Diagnoses at Discharge Discharge Diagnosis (1) Acute and chronic respiratory failure: Status: Acute Qualifiers: Respiratory failure complication: hypoxia and hypercapnia Qualified Code(s): J96.21 - Acute and chronic respiratory failure with hypoxia; J96.22 - Acute and chronic respiratory failure with hypercapnia (2) Dyslipidemia: Status: Acute (3) Carotid stenosis: Status: Acute (4) Atherosclerotic heart disease of [place] coronary artery with other forms of angina pectoris: Status: Acute (5) COPD (chronic obstructive pulmonary disease) with emphysema: Status: Chronic Qualifiers: Emphysema type: panlobular Qualified Code(s): J43.1 - Panlobular emphysema (6) CAD (coronary artery disease): Status: Chronic Qualifiers: Coronary Disease-Associated Artery/Lesion type: [place] artery [place] vs. transplanted heart: [place] heart Associated angina: without angina Qualified Code(s): I25.10 - Atherosclerotic heart disease of [place] coronary artery without angina pectoris (7) BMI 24.0-24.9, adult: Status: Acute Reason for Visit Reason for Visit: sob Hospital Course Hospital Course Brayden Adler is a 71 year old male with a past medical history of CAD, chronic respiratory failure, COPD with emphysema on home BiPAP hypertension, peripheral arterial disease who presents to [facility] due to complaints of shortness of breath.? Patient was admitted to [facility] for acute on chronic hypercarbic respiratory failure with possible underlying pneumonia. He was admitted to ICU, received steroid therapy, BiPAP therapy, inhaler therapy, monitor. Patient overall clinically improved, his cultures have not so far moved to general medical floors, ambulating without significant symptomatology. Will be discharged on steroid burst, antibiotic therapy, follow-up with primary care and as outpatient Patient for his hypertension, blood pressures remained elevated, discharged on spironolactone 25 twice daily, clonidine 0.1 twice daily, metoprolol 25 mg twice daily, Norvasc 10 mg once daily, follow-up with primary care provider as outpatient for blood pressure check Physical Exam Const: COMMON NORMALS: no acute distress and patient oriented x3 Resp: COMMON NORMALS: normal respiratory effort, No retractions, No use of accessory muscles and clear to auscultation bilaterally AUSCULTATION: clear to auscultation bilaterally Cardio: COMMON NORMALS: regular rate, regular rhythm, S1 normal heart sound present and S2 normal heart sound present RATE: regular rate RHYTHM: regular rhythm HEART SOUNDS: S1 normal heart sound present and S2 normal heart sound present GI: COMMON NORMALS: Normal to inspection, nondistended, normoactive bowel sounds present, Soft to palpation and non-tender PALPATION: Yes Soft to palpation Extremity: COMMON NORMALS: no pedal edema Neuro: COMMON NORMALS: patient oriented x3 Psych: COMMON NORMALS: mental status grossly normal Discharge Data Studies Completed and Pending Completed Studies During Hospitalization Category Date Time Status XR chest 1V portable [id number] Stat Exams 01/20/22 17:14 Completed Pending at discharge Category Date Time Status Blood Culture Stat Lab 01/20/22 19:18 Results Complete Blood Count w/Auto AM LABS Lab 01/24/22 04:00 Ordered Sputum Culture and Gram Stain Stat Lab 01/20/22 17:20 Uncollected Radiology Impressions Chest X-Ray 01/20/22 17:14 IMPRESSION: Pulmonary emphysema, large bilateral bulla and scattered areas of scarring are again noted. No acute abnormality is detected. Laboratory Results WBC 10.2 10^3/uL (4.0-10.0) H 01/23/22 02:50 RBC 4.35 10^6/uL (4.1-5.3) 01/23/22 02:50 Hgb 12.0 g/dL (11.7-16.6) 01/23/22 02:50 Hct 37.0 % (42.0-52.0) L 01/23/22 02:50 MCV 85.1 fl (80-94) 01/23/22 02:50 MCH 27.6 pg (28.0-34.0) L 01/23/22 02:50 MCHC 32.4 g/dL (30.0-36.0) 01/23/22 02:50 RDW 13.1 % (12.1-15.1) 01/23/22 02:50 Plt Count 195 10^3/cmm (130-400) 01/23/22 02:50 MPV 10.5 fL (7.4-10.4) H 01/23/22 02:50 Neut % (Auto) 92.6 % 01/23/22 02:50 Lymph % (Auto) 3.3 % 01/23/22 02:50 [place] % (Auto) 3.5 % 01/23/22 02:50 Eos % (Auto) 0.0 % 01/23/22 02:50 Baso % (Auto) 0.1 % 01/23/22 02:50 Neut # (Auto) 9.45 10^3/uL (1.8-7.7) H 01/23/22 02:50 Lymph # (Auto) 0.3 10^3/uL (0.8-4.8) L 01/23/22 02:50 [place] # (Auto) 0.4 10^3/uL (0.2-0.9) 01/23/22 02:50 Eos # (Auto) 0.0 10^3/uL (0.0-0.8) 01/23/22 02:50 Baso # (Auto) 0.0 10^3/uL (0.0-0.1) 01/23/22 02:50 Nucleated RBC % (auto) 0 % 01/23/22 02:50 Nucleated RBCs # 0.0 /100WBC 01/23/22 02:50 Specimen Type Arterial 01/23/22 04:00 Sample Site Radial, right 01/23/22 04:00 ABG pH 7.42 (7.35-7.45) 01/23/22 04:00 ABG pCO2 60.9 mmHg (35-45) H* 01/23/22 04:00 ABG pO2 95.0 mmHg (80.0-100.0) 01/23/22 04:00 ABG HCO3 39.7 mmol/L (22-26) H 01/23/22 04:00 ABG O2 Saturation 95.6 01/20/22 18:25 ABG Base Excess 12.8 mmol/L (-2.0-2.0) H 01/23/22 04:00 [place] Test Pos 01/23/22 04:00 A-a O2 Gradient 20.3 mmHg (5-10) H 01/20/22 18:25 Hematocrit 37.5 % (42-52) L 01/23/22 04:00 Hgb O2 Saturation 93.1 % (95-100) L 01/20/22 18:25 Carboxyhemoglobin 1.7 %THgb (0.4-20.1) 01/20/22 18:25 Methemoglobin 0.9 % (0.4-1.5) 01/20/22 18:25 Total Hemoglobin 12.6 g/dL (14-18) L 01/20/22 18:25 Sodium 142.0 mmol/L (131-143) 01/20/22 18:25 Potassium 4.9 mmol/L (3.5-5.0) 01/20/22 18:25 Glucose 135.0 mg/dL (70-115) H 01/20/22 18:25 Ionized Calcium 1.3 mmol/L (1.1-1.4) 01/20/22 18:25 O2 Delivery Device Nc 01/23/22 04:00 O2 Liters/Min 4.0 % 01/23/22 04:00 FiO2 40.0 % 01/21/22 05:10 Handbook Writer ID A[place] 01/23/22 04:00 Sodium 141 mmol/L (136-145) 01/23/22 02:50 Potassium 4.5 mmol/L (3.5-5.1) 01/23/22 02:50 Chloride 100 mmol/L (98-107) 01/23/22 02:50 Carbon Dioxide 35 mmol/L (22-29) H 01/23/22 02:50 Anion Gap 10.5 (5-19) 01/23/22 02:50 BUN 29 mg/dL (8-23) H 01/23/22 02:50 Creatinine 0.9 mg/dL (0.7-1.2) 01/23/22 02:50 GFR Calculation Not Reportable 01/23/22 02:50 Glucose 142 mg/dL (65-115) H 01/23/22 02:50 POC Glucose 107 mg/dL (70-110) 01/20/22 21:35 Calculated Osmolality 300 mOsm/kg (285-295) H 01/23/22 02:50 Lactic Acid 1.3 mmol/L (0.5-2.2) 01/20/22 21:35 Calcium 9.0 mg/dL (8.5-10.5) 01/23/22 02:50 Phosphorus 3.6 mg/dL (2.5-4.5) 01/23/22 02:50 Magnesium 2.1 mg/dL (1.7-2.3) 01/23/22 02:50 Total Bilirubin 1.1 mg/dL (0.15-1.2) 01/23/22 02:50 AST 27 U/L (0-40) 01/23/22 02:50 ALT 19 U/L (0-41) 01/23/22 02:50 Alkaline Phosphatase 66 IU/L (40-130) 01/23/22 02:50 Troponin T Baseline 13 ng/L (0-15) 01/22/22 13:18 Troponin T 120 Minute 16.50 ng/L (0-15) H 01/22/22 14:50 Delta Troponin T 3.50 ABS# (0-10) 01/22/22 14:50 Troponin T Hi Sens 6Hr 17.47 ng/L (0-15) H 01/22/22 18:39 Troponin T Hi Sens 6Hr Delta 4.47 ng/L (0-12) 01/22/22 18:39 C-Reactive Protein 3.0 mg/L (0.0-4.9) 01/23/22 02:50 NT-Pro-B Natriuret Pep 929 pg/mL (0-125) H 01/23/22 02:50 Total Protein 6.3 g/dL (6.6-8.7) L 01/23/22 02:50 Albumin 3.6 g/dL (3.5-5.2) 01/23/22 02:50 Globulin 2.7 g/dL (1.3-4.6) 01/23/22 02:50 Triglycerides 52 mg/dL (0-150) 01/20/22 21:35 Cholesterol 161 mg/dL (0-200) 01/20/22 21:35 LDL Cholesterol, Calc 85 mg/dL (50-129) 01/20/22 21:35 HDL Cholesterol 66 mg/dL (60-100) 01/20/22 21:35 LDL/HDL Ratio 1.29 RATIO (0.00-3.22) 01/20/22 21:35 Cholesterol/HDL Ratio 2.44 mg/dL (1.0-5.00) 01/20/22 21:35 Procalcitonin 0.07 ng/mL (0-0.5) 01/23/22 02:50 TSH 1.31 uIU/mL (0.27-4.20) 01/20/22 21:35 Urine Color Yellow (Yellow) 01/21/22 00:33 Urine Appearance Hazy (CLEAR) A 01/21/22 00:33 Urine pH 8 (5-7) H 01/21/22 00:33 Ur Specific [place] 1.015 (1.005-1.030) 01/21/22 00:33 Urine Protein Neg (Negative) 01/21/22 00:33 Urine Glucose (UA) Norm (Normal) 01/21/22 00:33 Urine Ketones 2+ (Negative) H 01/21/22 00:33 Urine Blood Neg (Negative) 01/21/22 00:33 Urine Nitrate Negative (Negative) 01/21/22 00:33 Urine Bilirubin Neg (Negative) 01/21/22 00:33 Urine Urobilinogen Norm mg/dL (Negative) 01/21/22 00:33 Ur Leukocyte Esterase Negative (Negative) 01/21/22 00:33 Urine RBC 0-4 /hpf (0-2) H 01/21/22 00:33 Urine WBC 0-4 /hpf (0-5) H 01/21/22 00:33 Ur Squamous Epith Cells 0-4 /hpf (0-5) H 01/21/22 00:33 Amorphous Sediment 4+ /hpf 01/21/22 00:33 Urine Bacteria Trace /hpf (NONE) 01/21/22 00:33 Nasal Influ A H1 2009 PCR Cancelled 01/21/22 06:05 Nasal Influ A H1 2009 PCR Not detected (NOT DETECT) 01/21/22 06:05 Vancomycin Trough 26.1 ug/mL (10-15) H* 01/21/22 22:00 Coronavirus 229E (PCR) Not detected (NOT DETECT) 01/21/22 06:05 Influenza A (H1) PCR Cancelled 01/21/22 06:05 Influenza A (H1) PCR Not detected (NOT DETECT) 01/21/22 06:05 Influenza A (H3) PCR Cancelled 01/21/22 06:05 Influenza A (H3) PCR Not detected (NOT DETECT) 01/21/22 06:05 Influenza Type A Ag Cancelled 01/21/22 06:05 Influenza Type A (PCR) Cancelled 01/21/22 06:05 Influenza Type A (PCR) Not detected (NOT DETECT) 01/21/22 06:05 Influenza Type B Ag Cancelled 01/21/22 06:05 Influenza Type B (PCR) Cancelled 01/21/22 06:05 Influenza Type B (PCR) Not detected (NOT DETECT) 01/21/22 06:05 SARS-CoV-2 (PCR) Not detected (NOT DETECT) 01/21/22 06:05 Vitals Last Vital Signs Temp 98.2 F 01/23/22 11:15 Pulse 90 01/23/22 11:19 Resp 16 01/23/22 11:16 BP 179/97 01/23/22 11:15 Pulse Ox 95 01/23/22 11:16 Discharge Plan Discharge Patient Disposition: Home Condition: Stable Prescriptions: New spironolactone 25 mg Tablet 25 mg PO Q12H 30 Days Qty: 30 0RF metoprolol tartrate 25 mg Tablet 25 mg PO Q12H 30 Days Qty: 60 0RF amlodipine 10 mg Tablet 10 mg PO DAILY 30 Days Qty: 30 0RF doxycycline hyclate 100 mg capsule 100 mg PO BID 5 Days Qty: 10 0RF prednisone 20 mg tablet 20 mg PO BID 5 Days Qty: 10 0RF clonidine HCl 0.1 mg Tablet 0.1 mg PO BID 30 Days Qty: 60 0RF Continued lorazepam 1 mg tablet 1 mg PO BID PRN (Reason: Anxiety) 0RF (DME) ambulatory ventilator See Rx Instructions .Route .MEDSUPPLY Qty: 1 0RF Rx Instructions: As directed hydromorphone 2 mg tablet 2 mg PO TID 0RF budesonide [Pulmicort] 0.5 mg/2 mL suspension for nebulization 0.5 mg inhalation BID Qty: 120 5RF aspirin [Adult Aspirin Regimen] 81 mg tablet,delayed release (DR/EC) 81 mg PO DAILY 0RF Breztri Aerosphere 160-9-4.8 mcg/actuation HFA aerosol inhaler 2 inh inhalation BID Qty: 10.7 3RF Rx Instructions: PLEASE DISPENSE UNDER 340B albuterol sulfate [Ventolin HFA] 90 mcg/actuation HFA aerosol inhaler 2 inh INHALATION QID PRN (Reason: shortness of breath or wheezing) Qty: 18 1RF albuterol sulfate 2.5 mg /3 mL (0.083 %) solution for nebulization 2.5 mg INHALATION Q4H PRN (Reason: shortness of breath or wheezing) Qty: 300 11RF cilostazol 50 mg tablet 50 mg PO BID Qty: 180 0RF clopidogrel 75 mg tablet 75 mg PO QAM Qty: 90 0RF tamsulosin 0.4 mg capsule 0.4 mg PO QAM Qty: 90 0RF Markus Multivitamin For Men 200-175-250 mcg Tablet 1 tab PO DAILY 0RF Changed Lasix 20 mg tablet 20 mg PO DAILY PRN (Reason: edema) Qty: 135 0RF morphine 15 mg tablet extended release 15 mg PO Q12H PRN (Reason: pain) Qty: 0 0RF Discontinued losartan [Cozaar] 50 mg tablet 25 mg PO QAM 0RF Discharge Orders: Discharge Order (Routine); Ordered 01/23/22 Ordered By: Matthew Beaulieu Referrals: [facility] [Other] (You have been accepted with [facility]. They will be contacting you about a time to admit you to their services. If you have any questions or concerns please call them at [phone].) Shakir Lopez MD [Physician] - 4-7 days Wilbur Sandy MD [Primary Care Provider] - Patient Instructions: Opioid Safety Activity Restrictions/Additional Instructions: - If you have worsening shortness of breath please go to the emergency room -Please take antibiotics and steroids as prescribed -Please follow-up with primary care provider in 1 week -Take blood pressure medication as prescribed Discharge Attestations Time Spent in Discharge Care*: less than 30 min Status at Discharge: Cognitive status at discharge: cognitively intact , Behavioral status at discharge: cooperative , Quality Metrics Clinical Quality Measures [ No reported AMI, CVA or VTE this stay] Coding Level of Care Code Acute g [facility] note Diagnoses Acute and chronic respiratory failure J96.21; J96.22 Respiratory failure complication: hypoxia and hypercapnia Dyslipidemia E78.5 Carotid stenosis I65.29 Atherosclerotic heart disease of [place] coronary artery with other forms of angina pectoris I25.118 COPD (chronic obstructive pulmonary disease) with emphysema J43.1 Emphysema type: panlobular CAD (coronary artery disease) I25.10 Coronary Disease-Associated Artery/Lesion type: [place] artery [place] vs. transplanted heart: [place] heart Associated angina: without angina BMI 24.0-24.9, adult Z68.24
[2022-01-23] MEDS: hyDRALAzine 25 mg Tablet PO (13:12)
[2022-01-23] MEDS: FUROsemide 10 mg/mL SDV 4mL 40 MG IVP (13:13)
== END 2022-01-23 14:40 | disposition home health service (06) | DRG 189 ==
LOC: ER 18:13 → ICU 19:48 → MEDSURG 01-22 21:55
PROVIDERS: Emergency Medicine; Admitting Provider Family Medicine; Emergency Provider Family Medicine; PCP Internal Medicine Cardiovascular Disease; Visit Provider Family Medicine
DX: J96.22 Acute and chronic respiratory failure with hypercapnia (principal); J18.9 Pneumonia, unspecified organism; J96.21 Acute and chronic respiratory failure with hypoxia; I25.10 Atherosclerotic heart disease of native coronary artery without angina pectoris; J43.1 Panlobular emphysema; I10 Essential (primary) hypertension; I73.9 Peripheral vascular disease, unspecified; Z87.891 Personal history of nicotine dependence; Z99.89 Dependence on other enabling machines and devices; Z79.891 Long term (current) use of opiate analgesic; Z79.82 Long term (current) use of aspirin; Z79.51 Long term (current) use of inhaled steroids
CPT/HCPCS: 36415; 36416; 36600; 71045; 80051; 80053; 80061; 80202; 81001; 82330; 82803; 82805; 82962; 83605; 83735; 83880; 84100; 84145; 84443; 84484; 85025; 86140; 86403; 87040; 87631; 87635; 93005; 94640; 94660; 94664; 96365; 96372; 99291; C9113; J1650; J1940; J1956; J2543; J2930; J3370; J3475; J7050; J7626

== ENCOUNTER → 2022-01-27 13:57 | Outpatient (BNVA) | payer MEDICARE, SELFPAY | PROVIDERS: PCP Nurse Practitioner; Visit Provider Internal Medicine Pulmonary Disease | DX: Z09 Encounter for follow-up examination after completed treatment for conditions other than malignant neoplasm (principal); I10 Essential (primary) hypertension; Z87.891 Personal history of nicotine dependence; J96.21 Acute and chronic respiratory failure with hypoxia; J96.22 Acute and chronic respiratory failure with hypercapnia; R06.00 Dyspnea, unspecified; J44.1 Chronic obstructive pulmonary disease with (acute) exacerbation; J43.1 Panlobular emphysema; I25.10 Atherosclerotic heart disease of native coronary artery without angina pectoris; J43.9 Emphysema, unspecified; J96.20 Acute and chronic respiratory failure, unspecified whether with hypoxia or hypercapnia; Z01.82 Encounter for allergy testing | CPT/HCPCS: 36415; 82785; 85025; 86003; 99214 ==

== ENCOUNTER → 2022-03-02 13:16 | Outpatient (BNVA) | payer MEDICARE, SELFPAY | PROVIDERS: PCP Nurse Practitioner; Visit Provider Internal Medicine Cardiovascular Disease | DX: I11.0 Hypertensive heart disease with heart failure (principal); I50.9 Heart failure, unspecified; E78.5 Hyperlipidemia, unspecified; I25.118 Atherosclerotic heart disease of native coronary artery with other forms of angina pectoris; I65.29 Occlusion and stenosis of unspecified carotid artery; I73.9 Peripheral vascular disease, unspecified; F17.200 Nicotine dependence, unspecified, uncomplicated | CPT/HCPCS: 36415; 80048; 83880; 99214 ==